=== PATIENT | female | born 1990 | race Caucasian/White ===

== ENCOUNTER 2019-02-22 17:26 | Emergency (ER) | payer OTHER ==
[~2019-02-22] VITALS: Ht 154.9 cm; Wt 110.9 kg
[2019-02-22] MEDS ORDERED: GI COCKTAIL 50ML BTL(HYOSCYAMINE/MAALOX/LIDOCAINE VISCOUS)(1:3:1) PO ONE (18:00)
[2019-02-22 18:16] LABS: BASO # 0.1 10^3/uL (0.0-0.2); BASO % 0.6 % (0.0-1.0); EOS # 0.1 10^3/uL (0.0-0.5); EOS % 0.5 % (0.0-3.0); HEMATOCRIT 40.1 % (36.0-47.0); HEMOGLOBIN 13.3 g/dl (12.0-15.5); LYMPH # 2.9 10^3/uL (1.5-5.0); LYMPH % 30.4 % (24.0-44.0); MEAN CORPUSCULAR HEMOGLOBIN 28.1 pg (27.0-33.0); MEAN CORPUSCULAR HGB CONC 33.2 g/dl (32.0-36.5); MEAN CORPUSCULAR VOLUME 84.6 fl (80.0-96.0); MONO # 0.6 10^3/uL (0.0-0.8); MONO % 6.8 % (0.0-5.0); NEUTROPHILS # 5.8 10^3/uL (1.5-8.5); NEUTROPHILS % 61.3 % (36.0-66.0); PLATELET COUNT, AUTOMATED 319 10^3/uL (150-450); RED BLOOD COUNT 4.74 10^6/uL (4.00-5.40); WHITE BLOOD COUNT 9.4 10^3/uL (4.0-10.0)
[2019-02-22 18:58] LABS: ALBUMIN 3.5 GM/DL (3.2-5.2); ALT/SGPT 22 U/L (12-78); BILIRUBIN,DIRECT < 0.1 MG/DL (0.0-0.2); BILIRUBIN,TOTAL 0.2 MG/DL (0.2-1.0); BLOOD UREA NITROGEN 8 MG/DL (7-18); CALCIUM LEVEL 8.6 MG/DL (8.5-10.1); CARBON DIOXIDE LEVEL 24 MEQ/L (21-32); CHLORIDE LEVEL 108 MEQ/L (98-107); CK-MB VALUE MASS < 1.0 NG/ML (<3.6); CPK CREATINE PHOSPHOKINASE 109 U/L (26-192); CREATININE FOR GFR 0.82 MG/DL (0.55-1.30); FREE T4 1.01 NG/DL (0.76-1.46); GLOMERULAR FILTRATION RATE > 60.0 (>60); GLUCOSE, FASTING 97 MG/DL (70-100); MB/CK RELATIVE INDEX 0.92 (< OR =4); NT-PRO BNP 15 PG/ML (<125); POTASSIUM SERUM 4.3 MEQ/L (3.5-5.1); SODIUM LEVEL 141 MEQ/L (136-145); TOTAL PROTEIN 7.1 GM/DL (6.4-8.2); TROPONIN I < 0.02 NG/ML (< 0.10)
[2019-02-22 19:10] LABS: HCG, SERUM QUALITATIVE NEGATIVE (NEGATIVE)
--- NOTE | 2019-02-22 20:08 | REP ---
Chest x-ray: Two views. History: Chest pain. Findings: EKG monitoring electrodes overlie the chest. Lungs are well inflated and clear. Pleural angles are sharp. Heart size is normal. No significant bony abnormality. Impression: No active disease. Electronically Signed by Uriel Ricardo MD 02/22/2019 07:59 P
[2019-02-22 20:30] VITALS: BP 136/68
--- NOTE | 2019-02-22 21:23 | ECGEPIP ---
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
== END 2019-02-22 21:34 | disposition home or self-care (01) ==
LOC: M ED 17:26 → EDBD 17:26 → M ED 21:34
DX: R07.89 Other chest pain (principal); R06.02 Shortness of breath; R11.0 Nausea; R05 Cough; E83.10 Disorder of iron metabolism, unspecified; Z88.0 Allergy status to penicillin

== ENCOUNTER → 2020-04-06 | Outpatient (CLI) | payer OTHER ==
[2020-04-06 19:58] LABS: BASO # 0.1 10^3/uL (0.0-0.2); BASO % 0.8 % (0.0-1.0); EOS # 0.1 10^3/uL (0.0-0.5); EOS % 0.8 % (0.0-3.0); HEMATOCRIT 38.8 % (36.0-47.0); HEMOGLOBIN 12.5 g/dl (12.0-15.5); LYMPH # 2.9 10^3/uL (1.5-5.0); LYMPH % 30.5 % (24.0-44.0); MEAN CORPUSCULAR HEMOGLOBIN 26.9 pg (27.0-33.0); MEAN CORPUSCULAR HGB CONC 32.2 g/dl (32.0-36.5); MEAN CORPUSCULAR VOLUME 83.4 fl (80.0-96.0); MONO # 0.8 10^3/uL (0.0-0.8); MONO % 8.6 % (2.0-8.0); NEUTROPHILS # 5.5 10^3/uL (1.5-8.5); NEUTROPHILS % 58.9 % (36.0-66.0); PLATELET COUNT, AUTOMATED 371 10^3/uL (150-450); RED BLOOD COUNT 4.65 10^6/uL (4.00-5.40); WHITE BLOOD COUNT 9.4 10^3/uL (4.0-10.0)
[2020-04-06 20:11] LABS: ALBUMIN 3.7 GM/DL (3.2-5.2); ALT/SGPT 41 U/L (12-78); BILIRUBIN,TOTAL 0.2 MG/DL (0.2-1.0); BLOOD UREA NITROGEN 7 MG/DL (7-18); CALCIUM LEVEL 8.8 MG/DL (8.5-10.1); CARBON DIOXIDE LEVEL 27 MEQ/L (21-32); CHLORIDE LEVEL 107 MEQ/L (98-107); CHOLESTEROL LEVEL 246 MG/DL (<200); CREATININE FOR GFR 0.88 MG/DL (0.55-1.30); FREE T4 0.98 NG/DL (0.76-1.46); GLOMERULAR FILTRATION RATE > 60.0 (>60); GLUCOSE, FASTING 90 MG/DL (70-100); HDL CHOLESTEROL 41 MG/DL (>40); LDL CHOLESTEROL 156 MG/DL (<100); NON-HDL-C 205 MG/DL; POTASSIUM SERUM 4.5 MEQ/L (3.5-5.1); SODIUM LEVEL 141 MEQ/L (136-145); TOTAL PROTEIN 7.2 GM/DL (6.4-8.2); TRIGLYCERIDES LEVEL 244 MG/DL (<150)
[2020-04-06 20:32] LABS: HEMOGLOBIN A1c 5.4 %
== END ==
LOC: M WUC 15:45
PROVIDERS: ATTEND Nurse Practitioner Family
DX: R35.8 Other polyuria (principal); E66.01 Morbid (severe) obesity due to excess calories

== ENCOUNTER → 2020-04-21 | Outpatient (CLI) | payer OTHER ==
[2020-04-21 16:55] LABS: HCG, SERUM QUALITATIVE NEGATIVE (NEGATIVE)
== END ==
LOC: M WUC 13:52
PROVIDERS: ATTEND Nurse Practitioner Family
DX: R35.8 Other polyuria (principal)

== ENCOUNTER 2020-08-27 19:14 | Day surgery (SDC) | payer OTHER ==
[~2020-08-27] VITALS: Ht 154.9 cm; Wt 134.0 kg
[2020-08-27] MEDS ORDERED: [UNRECOGNIZED DRUG - CODE] PO (19:20)
[2020-08-27 21:13] LABS: BASO # 0.1 10^3/uL (0.0-0.2); BASO % 0.5 % (0.0-1.0); EOS # 0.1 10^3/uL (0.0-0.5); EOS % 0.6 % (0.0-3.0); HEMATOCRIT 37.9 % (36.0-47.0); HEMOGLOBIN 12.5 g/dl (12.0-15.5); LYMPH # 2.2 10^3/uL (1.5-5.0); LYMPH % 17.8 % (24.0-44.0); MEAN CORPUSCULAR HEMOGLOBIN 26.6 pg (27.0-33.0); MEAN CORPUSCULAR VOLUME 80.6 fl (80.0-96.0); MONO # 0.9 10^3/uL (0.0-0.8); MONO % 7.5 % (2.0-8.0); NEUTROPHILS % 73.1 % (36.0-66.0); PLATELET COUNT, AUTOMATED 432 10^3/uL (150-450); WHITE BLOOD COUNT 12.3 10^3/uL (4.0-10.0)
[2020-08-27 21:34] LABS: ALBUMIN 3.4 GM/DL (3.2-5.2); ALT/SGPT 55 U/L (12-78); BILIRUBIN,DIRECT 0.2 MG/DL (0.0-0.2); BILIRUBIN,TOTAL 0.5 MG/DL (0.2-1.0); BLOOD UREA NITROGEN 6 MG/DL (7-18); CALCIUM LEVEL 8.6 MG/DL (8.5-10.1); CARBON DIOXIDE LEVEL 26 MEQ/L (21-32); CHLORIDE LEVEL 102 MEQ/L (98-107); CREATININE FOR GFR 0.91 MG/DL (0.55-1.30); GLOMERULAR FILTRATION RATE > 60.0 (>60); GLUCOSE, FASTING 101 MG/DL (70-100); LIPASE 110 U/L (73-393); POTASSIUM SERUM 4.2 MEQ/L (3.5-5.1); SODIUM LEVEL 138 MEQ/L (136-145); TOTAL PROTEIN 7.7 GM/DL (6.4-8.2)
[2020-08-27] MEDS ORDERED: KETOROLAC 30 MG/ML 1ML VIAL IV ONE (22:50)
[2020-08-27] MEDS ORDERED: ONDANSETRON 4MG/2ML VIAL IV ONE (22:50)
[2020-08-27] MEDS ORDERED: NS 1,000 ML IV ONE (22:50)
[2020-08-27] MEDS ORDERED: DICYCLOMINE 10 MG CAP PO ONE (22:50)
[2020-08-27] MEDS ORDERED: ISOVUE-370 76% 100ML VIAL As Ordered ONE (23:09)
[2020-08-27] MEDS ORDERED: GI COCKTAIL 50ML BTL(HYOSCYAMINE/MAALOX/LIDOCAINE VISCOUS)(1:3:1) PO ONE (23:10)
[2020-08-28] VITALS (8 sets, daily range): BP systolic 120–134; BP diastolic 77–87
--- NOTE | 2020-08-28 01:10 | REPVR ---
PROCEDURE INFORMATION: Exam: CT Abdomen And Pelvis With Contrast Exam date and time: 08/27/2020 12:02 AM Age: 30 years old Clinical indication: Abdominal pain; Generalized; Additional info: Diffuse severe abd pain, nv TECHNIQUE: Imaging protocol: Computed tomography of the abdomen and pelvis with contrast. Radiation optimization: All CT scans at this facility use at least one of these dose optimization techniques: automated exposure control; mA and/or kV adjustment per patient size (includes targeted exams where dose is matched to clinical indication); or iterative reconstruction. Contrast material: ISOVUE 370; Contrast volume: 100 ml; Contrast route: INTRAVENOUS (IV); COMPARISON: CO Chest, 2 view PA, Lat 02/22/2019 7:36 PM FINDINGS: Lungs: Focal atelectasis is seen in the posterior right lower lobe. Pneumonitis cannot be excluded. Pleural spaces: No pleural effusion. Liver: There is a diffuse decrease in hepatic parenchymal density, consistent with fatty infiltration. There are no focal liver lesions present. Gallbladder and bile ducts: Cholelithiasis is noted. No gallbladder wall thickening, pericholecystic edema, or biliary obstruction is evident. Pancreas: The pancreas is normal. Spleen: The spleen is enlarged, measuring 16.2 cm in greatest dimension. Adrenal glands: The adrenal glands are normal. Kidneys and ureters: The kidneys are normal. Stomach and bowel: The stomach is normal. No bowel obstruction is seen. Appendix: There are findings of acute appendicitis with evidence of rupture and phlegmon formation in the right lower quadrant. A linear appendicoliths is seen in the distal appendix. The inflammatory process in the right lower quadrant is abutting the superolateral aspect of the right adnexa. There are inflammatory changes of the adjacent small bowel loops and ascending colon. Intraperitoneal space: No definite free air is seen. Vasculature: The vasculature is normal. Lymph nodes: No lymphadenopathy. Reactive mesenteric lymph nodes are seen in the right lower quadrant. Urinary bladder: The bladder is normal. Reproductive: The uterus is normal. Bones/joints: Unremarkable. No acute fracture. IMPRESSION: 1. Acute appendicitis, with evidence of appendiceal rupture and right lower quadrant phlegmon. No formed, and drainable abscess is detected. 2. Reactive inflammatory changes of the adjacent small bowel and ascending colon. 3. Hepatic steatosis. 4. Splenomegaly. 5. Cholelithiasis. Electronically signed by: Carina Abad On 08/28/2020 01:09:35 AM
[2020-08-28] MEDS ORDERED: NS 1,000 ML IV ONE (01:20)
[2020-08-28] MEDS ORDERED: IMIPENEM/CILASTATIN 1,000 MG in D5W MINI-BAG PLUS 100 ML IV ONE (01:25)
[2020-08-28] MEDS: LR 1,000 ML IV SCH ×2 (02:10→10:35)
[2020-08-28] MEDS ORDERED: ONDANSETRON 4MG/2ML VIAL IV PRN ×2 (02:10→05:45)
[2020-08-28 02:17] LABS: RSV AMPLIFICATION NEGATIVE (NEGATIVE)
[2020-08-28] MEDS ORDERED: BUPIVACAINE HCL 0.25% 30ML VIAL As Ordered ONE (02:59)
[2020-08-28] MEDS ORDERED: fentaNYL 100 MCG/2 ML INJECTION (J3010) As Ordered ONE ×2 (03:00→03:41)
[2020-08-28] MEDS ORDERED: dexameTHASONE 4 MG/ML 1ML VIAL (J1100 PER 1MG) As Ordered ONE ×2 (03:00→03:01)
[2020-08-28] MEDS ORDERED: MIDAZOLAM INJ 2MG/2ML VIAL (J2250 PER 1MG) As Ordered ONE (03:00)
[2020-08-28] MEDS ORDERED: ONDANSETRON 4MG/2ML VIAL As Ordered ONE (03:00)
[2020-08-28] MEDS ORDERED: propofoL 200 MG/20 ML VIAL As Ordered ONE ×2 (03:01→03:57)
[2020-08-28] MEDS ORDERED: LIDOCAINE 2% 100MG/5ML SDV (FOR ANES.) As Ordered ONE (03:01)
[2020-08-28] MEDS ORDERED: ROCURONIUM BROMIDE 50 MG/5 ML VIAL As Ordered ONE ×2 (03:02→04:14)
[2020-08-28] MEDS ORDERED: SUCCINYLCHOLINE 100 MG/5 ML SYRINGE (J0330) As Ordered ONE (03:34)
[2020-08-28] MEDS ORDERED: ESMOLOL INJ 100MG/10ML VIAL As Ordered ONE (03:49)
[2020-08-28] MEDS ORDERED: METOCLOPRAMIDE INJ 10MG/2ML VIAL (J2765 PER 1) As Ordered ONE ×2 (03:54→06:16)
[2020-08-28] MEDS ORDERED: SUGAMMADEX SODIUM 500 MG/5 ML VIAL (BRIDION) As Ordered ONE (03:58)
[2020-08-28] MEDS ORDERED: METOCLOPRAMIDE INJ 10MG/2ML VIAL (J2765 PER 1) IV PRN (05:30)
[2020-08-28] MEDS ORDERED: HYDROMORPHONE HCL 0.5 MG/ 0.5 ML SYRINGE (J1170 PER 1) IV PRN (05:45)
[2020-08-28] MEDS ORDERED: fentaNYL 100 MCG/2 ML INJECTION (J3010) IV PRN (05:45)
[2020-08-28] MEDS ORDERED: LR 1,000 ML IV SCH (05:45)
[2020-08-28] MEDS ORDERED: oxyCODONE 5MG TAB PO PRN (05:45)
[2020-08-28] MEDS ORDERED: KETOROLAC 30 MG/ML 1ML VIAL IV PRN (05:55)
[2020-08-28] MEDS ORDERED: MORPHINE 2 MG/ML 1ML VIAL (J2270) IV PRN (05:55)
[2020-08-28] MEDS ORDERED: NORCO, ANEXSIA 5/325MG TABLET (HYDROcodone/ACETAMINOPHEN) PO PRN (05:55)
[2020-08-28] MEDS: IMIPENEM/CILASTATIN 500 MG in D5W MINI-BAG PLUS 100 ML IV SCH ×2 (09:03→14:58)
--- NOTE | 2020-08-28 13:41 | RO ---
OPERATIVE NOTE DATE OF OPERATION: 08/28/2020 PREOPERATIVE DIAGNOSIS: Acute appendicitis. POSTOPERATIVE DIAGNOSIS: Acute appendicitis with abscess. PROCEDURE PERFORMED: Laparoscopic appendectomy with drainage of abscess. SURGEON: Danielito Terry MD ANESTHESIA: General INDICATIONS FOR THE PROCEDURE: The patient is a 30-year-old woman whose only medical issue is morbid obesity. She reports approximately a week of some lower abdominal pain which worsened the day before presentation with development of some nausea and vomiting. A CT scan in the emergency department showed inflammatory changes in the right lower quadrant consistent with appendicitis. She is now for a laparoscopic appendectomy. OPERATIVE PROCEDURE: The patient was brought to the operating room and placed on the table in a supine position. She was placed under general endotracheal anesthesia. The patient's abdomen was prepped and draped in a sterile fashion. 1/4% Marcaine was infiltrated at each of the trocar sites as needed. A short supraumbilical midline incision was made. A Veress needle was inserted and after a positive hanging drop test, the abdomen was inflated with carbon dioxide gas. After adequate insufflation, a 12 mm was placed over a 5 mm scope and advanced through the abdominal wall without difficulty. The laparoscope was inserted and initial examination showed a small amount of insufflation of gas into the greater omentum. There was a prominent greater omentum basically covering all of the bowel and none of the other internal organs could be seen. She was tilted to a slight Trendelenburg position. Two 5 mm ports were placed in the left lower quadrant. The standard ports were long enough to advance it through the abdominal wall with perhaps 2 cm of clearance internally. Graspers were inserted. I was able to move the inferior portion of the greater omentum superiorly using the graspers. The patient was also rolled slightly to the left and then tilted more sharply into a Trendelenburg position. There was a minimal amount of serous fluid noted in the right lower quadrant. The cecum was identified. There was clearly an area of induration inferior to the cecum and abutting the terminal ileum. Dissection primarily blunt using the graspers was used to try to find a tissue plane to access the appendix. A fatty tag presumably from the sigmoid colon was identified adherent to some inflamed tissues apparently representing the tip of the appendix and this fatty tag was transected with the cauterizing scissors. Using the blunt technique again, it was possible to open a plane between the terminal ileum and the medial portion of the inflamed appendix. There was marked induration of the appendix with thickening which made grasping the appendix very difficult. The lateral aspect was more easily freed from the retroperitoneum by blunt dissection. As I attempted to work through the plane between the terminal ileum and the appendix, a small abscess apparently walled of in the mesoappendix adjacent to the terminal ileal mesentery and opened and drained. The area was irrigated and dissection proceeded. A harmonic scalpel was used to cut through some of the inflammatory tissue tethering the appendix to the retroperitoneum. The mesoappendix was partially identified and transected using the harmonic scalpel with excellent hemostasis. With continued dissection, it was possible to free the appendix down to the base. There was some induration around the base of the appendix but this appeared to be secondary rather than primary. I was able to put a 0 Vicryl Endoloop around the base of the appendix and the base of the appendix was then cut and the appendix was placed in an Endopouch. The mucosa of the appendiceal stump was cauterized. The right lower quadrant was copiously irrigated. Final inspection revealed no evidence of injury of the terminal ileum or the cecum. I elected not to place a drain given that all of wall of the small abscess had apparently been removed with the appendix. The patient was returned to a flat position. The abdomen was deflated and trocars were removed. An approximately 3 to 3-1/2 cm midline incision was centered on the 12 mm port site above the umbilicus. This was deepened through the subcutaneous tissues and the fascia was exposed and opened to allow the delivery of the appendix within the Endopouch. The fascial defect was then closed with a running suture of 2-0 PDS. This achieved a nice closure of the fascia. The wounds were the closed with buried sutures of 4-0 Vicryl and Steri-Strips. The remainder of the 30 mL of 1/4% Marcaine was infiltrated around all of the trocar sites. The patient tolerated the procedure well without apparent complication. She was awakened in the operating room, extubated, moved to the recovery room in stable condition. SHAR
[2020-08-28 14:19] LABS: BASO % 0.2 % (0.0-1.0); HEMATOCRIT 33.2 % (36.0-47.0); HEMOGLOBIN 10.6 g/dl (12.0-15.5); LYMPH % 8.3 % (24.0-44.0); MEAN CORPUSCULAR HEMOGLOBIN 25.7 pg (27.0-33.0); MEAN CORPUSCULAR HGB CONC 31.9 g/dl (32.0-36.5); MEAN CORPUSCULAR VOLUME 80.6 fl (80.0-96.0); MONO # 0.4 10^3/uL (0.0-0.8); MONO % 3.6 % (2.0-8.0); NEUTROPHILS # 10.3 10^3/uL (1.5-8.5); NEUTROPHILS % 87.4 % (36.0-66.0); PLATELET COUNT, AUTOMATED 381 10^3/uL (150-450); RED BLOOD COUNT 4.12 10^6/uL (4.00-5.40); WHITE BLOOD COUNT 11.8 10^3/uL (4.0-10.0)
[2020-08-28] MEDS ORDERED: METR-265 PO (18:10)
[2020-08-28] MEDS ORDERED: LEVO750T13 PO (18:10)
[2020-08-28] MEDS ORDERED: LevoFLOXacin 750 MG TABLET PO ONE (19:00)
--- NOTE | 2020-08-28 20:50 | IPN ---
PROGRESS NOTE DATE: 08/28/2020 HISTORY: Patient is approximately 12 hours postop from a laparoscopic appendectomy for acute appendicitis with a small abscess in the mesoappendix walled off by the terminal ileum. She tolerated her surgery well. She has taken some liquids well and was advanced to a regular diet. She denies any nausea or vomiting and has little pain and does not wish any narcotic medications. OBJECTIVE: VITAL SIGNS: Show that she has been afebrile since her surgery early this morning. Her pulse is in the low to mid 80's and her blood pressure is good. Room air oxygen saturation is in the mid to upper 90's. INTAKE/OUTPUT: She has had over 1,200 cc in orally with an excellent urine output. PHYSICAL EXAMINATION: GENERAL: Patient is sitting up in bed looking quite comfortable. HEART: Shows a regular rhythm. LUNGS: Clear. ABDOMEN: Remains markedly obese. She does have bowel sounds present throughout the abdomen. Her dressings are clean and dry. Abdomen is soft without any undo tenderness. LABORATORY STUDIES: She had a repeat CBC approximately 8 hours postop, which showed white count 12, hemoglobin 11, hematocrit 33 and platelet count 381,000. Differential count showed 87% neutrophils and 8% lymphocytes with 4% monocytes. ALLERGIES: She has an allergy to penicillins and Amoxicillin. IMPRESSION: Patient is doing very well following her surgery. Because of her small abscess, I had continued her Primaxin postop. She has an allergy to penicillins and Amoxicillin. She is eating diet well and denies significant pain and is eager to go home as she has two children at home. PLAN: I discussed ongoing care with the patient. Because of her small abscess, I do think a short course of postop antibiotics is appropriate. Unfortunately, the pharmacies are all closed for today. I will have the nurse give her a single dose of Levofloxacin 750 mg p.o. now. I will give her a prescription for five days worth of Levaquin and five days of Metronidazole, and she can have these filled first thing in the morning and start them tomorrow. I talked to her about postop wound care and she can shower tomorrow. She can take a diet as tolerated. She was advised against any strenuous physical activity, but was encouraged to walk and do light activities. She should follow-up in the office in a week to ten days or call sooner for any problems. SHAR
== END 2020-08-28 19:30 | disposition home or self-care (01) ==
LOC: M ED 19:14 → M ED INP 19:15 → UNDOADMOB 19:15 → M SDC 19:15 → M MSPAV 08-28 06:34 → M ED INP 08-28 06:34 → M MSPAV 08-28 06:34 → UNDODISOB 08-28 19:30 → M SDC 08-28 19:30
PROVIDERS: ATTEND Surgery
DX: K35.33 Acute appendicitis with perforation, localized peritonitis, and gangrene, with abscess (principal); E66.01 Morbid (severe) obesity due to excess calories; Z68.43 Body mass index [BMI] 50.0-59.9, adult; Z88.0 Allergy status to penicillin; Z88.1 Allergy status to other antibiotic agents
CPT/HCPCS: 36415; 44970; 74177; 80048; 80076; 83690; 84702; 85025; 87631; 88304; 96361; 96374; 96375; 96376; 99284; J0330; J0743; J1100; J1885; J2250; J2405; J2765; J3010; Q9967

== ENCOUNTER 2020-12-07 13:31 | Inpatient (IN) | payer OTHER ==
[~2020-12-07] VITALS: Ht 154.9 cm; Wt 119.3 kg
[~2020-12-07 13:31] MED LIST: LEVO750T13 PO; METR-265 PO; [UNRECOGNIZED DRUG - CODE] PO
[2020-12-07] MEDS ORDERED: NS 1,000 ML IV ONE (16:15)
--- OUTSIDE RECORDS SUMMARY | 2020-12-07 16:20 | CCD | Continuity of Care Document ---
Author Author Virgie BEACH M.D. Organization Unknown Address [address], [address] [place] [address] Phone [phone] Care Team Providers Care Tooth Clerk Name Role Phone Taylor Cantu P.A.-C AUTM [phone] Problems Description No Information Available Social History Type Date Description Comments Sex Unknown ETOH Use Denies alcohol use Tobacco Use Start: Unknown Denies Smoking Recreational Drug Use Denies Drug Use Allergies, Adverse Reactions, Alerts Active Allergies Reaction Severity Comments Date Penicillin V 08/30/2020 Amoxicillin 08/30/2020 Medications Description No Active Medications Immunizations Description No Information Available Vital Signs Date Vital Result Comment 09/07/2020 9:34am BP Systolic 126 mmHg BP Diastolic 72 mmHg Height 61 inches 5'1" Weight 297.00 lb BMI (Body Mass Index) 56.1 kg/m2 Paicines Body Weight 105 lb Weight 134.719 kg BSA (Body Surface Area) 2.23 m2 Results Description No Information Available Procedures Description No Information Available Medical Devices Description No Information Available Encounters Type Date Location Provider Dx Diagnosis Office Visit 09/07/2020 9:30a [facility] Danielito heart M.D. K35.33 Acute appendicitis with perf and loc per itonitis, with abscs E66.01 Morbid (severe) obesity due to excess calories Z48.89 Encounter for other specifie d surgical aftercare Assessments Date Code Description Provider 09/07/2020 K35.33 Acute appendicitis w ith perforation and localized peritonitis, with abscess Danielito Beach M.D. 09/07/2020 E66.01 Morbid (severe) obesity due to e xcess calories Danielito Beach M.D. 09/07/2020 Z48.89 Encounter for other specified barnes rgical aftercare Danielito Beach M.D. Plan of Treatment 09/07/2020 - Danielito Beach M.D.* K35.33 Acute appendicitis with perforation and localized peritonitis, with abscess* Comments:* Patient was counseled that she appears to be doing very well following her appendectomy. She clearly has no evidence of any recurrence of her abscess. I have advised her that as it was necessary to enlarge her supraumbilical incision somewhat to remove her distended appendix that she should probably avoid strenuous activity through approximately the first month. Light activities are certainly fine. She does not need to follow-up with me again in the future unless some new problem occurs. * E66.01 Morbid (severe) obesity due to excess calories * Z48.89 Encounter for other specified surgical aftercare Functional Status Description No Information Available Mental Status Description No Information Available Referrals Description No Information Available
--- OUTSIDE RECORDS SUMMARY | 2020-12-07 16:21 | CCD ---
Author Author [facility] Organization [facility] Address Unknown Phone Unavailable Care Team Providers Care Core Winder Name Role Phone Rakan BEACH MD Unavailable Unavailable Rakan BEACH MD Unavailable Unavailable Rakan BEACH MD Unavailable Unavailable Rakan BEACH MD Unavailable Unavailable YONGRakan BRIGGS MD Unavailable Unavailable Rakan BEACH MD Unavailable Unavailable Rakan BEACH MD Unavailable Unavailable Rakan BEACH MD Unavailable Unavailable Rakan BEACH MD Unavailable Unavailable YONGRakan BRIGGS MD Unavailable Unavailable YONGRakan BRIGGS MD Unavailable Unavailable YONGRakan BRIGGS MD Unavailable Unavailable YONGRakan BRIGGS MD Unavailable Unavailable YONGRakan BRIGGS MD Unavailable Unavailable Rakan BEACH MD Unavailable Unavailable Rakan BEACH MD Unavailable Unavailable Rakan BEACH MD Unavailable Unavailable YONGRakan BRIGGS MD Unavailable Unavailable YONGRakan BRIGGS MD Unavailable Unavailable YONGRakan BRIGGS MD Unavailable Unavailable YONGRakan BRIGGS MD Unavailable Unavailable Rakan BEACH MD Unavailable Unavailable Rakan BEACH MD Unavailable Unavailable Rakan BEACH MD Unavailable Unavailable YONGRakan BRIGGS MD Unavailable Unavailable YONGRakan BRIGGS MD Unavailable Unavailable YONGRakan BRIGGS MD Unavailable Unavailable Rakan BEACH MD Unavailable Unavailable Rakan BEACH MD Unavailable Unavailable Rakan BEACH MD Unavailable Unavailable Rakan BEACH MD Unavailable Unavailable Rakan BEACH MD Unavailable Unavailable Rakan BEACH MD Unavailable Unavailable YONGRakan BRIGGS MD Unavailable Unavailable YONGRakan BRIGGS MD Unavailable Unavailable YONGRakan BRIGGS MD Unavailable Unavailable YONGRakan BRIGGS MD Unavailable Unavailable YONGRakan BRIGGS MD Unavailable Unavailable YONGRakan BRIGGS MD Unavailable Unavailable YONGRakan BRIGGS MD Unavailable Unavailable YONGRakan BRIGGS MD Unavailable Unavailable YONGRakan BRIGGS MD Unavailable Unavailable YONG, O PRICE MD Unavailable Unavailable Pleskach, Carla DELIVERY PROFESSIONAL Unavailable Unavailable Pleskach, Carla DELIVERY PROFESSIONAL Unavailable Unavailable Pleskach, Carla DELIVERY PROFESSIONAL Unavailable Unavailable Pleskach, Carla DELIVERY PROFESSIONAL Unavailable Unavailable Pleskach, Carla DELIVERY PROFESSIONAL Unavailable Unavailable Pleskach, Carla DELIVERY PROFESSIONAL Unavailable Unavailable Pleskach, Carla DELIVERY PROFESSIONAL Unavailable Unavailable Pleskach, Carla DELIVERY PROFESSIONAL Unavailable Unavailable Pleskach, Carla DELIVERY PROFESSIONAL Unavailable Unavailable Pleskach, Carla DELIVERY PROFESSIONAL Unavailable Unavailable Pleskach, Carla DELIVERY PROFESSIONAL Unavailable Unavailable Pleskach, Carla DELIVERY PROFESSIONAL Unavailable Unavailable Pleskach, Carla DELIVERY PROFESSIONAL Unavailable Unavailable Pleskach, Carla DELIVERY PROFESSIONAL Unavailable Unavailable Pleskach, Carla DELIVERY PROFESSIONAL Unavailable Unavailable Pleskach, Carla DELIVERY PROFESSIONAL Unavailable Unavailable Pleskach, Calra DELIVERY PROFESSIONAL Unavailable Unavailable Pleskach, Carla DELIVERY PROFESSIONAL Unavailable Unavailable Pleskach, Carla DELIVERY PROFESSIONAL Unavailable Unavailable Pleskach, Carla DELIVERY PROFESSIONAL Unavailable Unavailable Pleskach, Carla DELIVERY PROFESSIONAL Unavailable Unavailable Pleskach, Carla DELIVERY PROFESSIONAL Unavailable Unavailable Pleskach, Carla DELIVERY PROFESSIONAL Unavailable Unavailable Pleskach, Carla DELIVERY PROFESSIONAL Unavailable Unavailable Pleskach, Carla DELIVERY PROFESSIONAL Unavailable Unavailable Pleskach, Carla DELIVERY PROFESSIONAL Unavailable Unavailable Pleskach, Carla DELIVERY PROFESSIONAL Unavailable Unavailable Pleskach, Carla DELIVERY PROFESSIONAL Unavailable Unavailable Pleskach, Carla DELIVERY PROFESSIONAL Unavailable Unavailable Pleskach, Carla DELIVERY PROFESSIONAL Unavailable Unavailable Pleskach, Carla DELIVERY PROFESSIONAL Unavailable Unavailable Pleskach, Carla DELIVERY PROFESSIONAL Unavailable Unavailable Pleskach, Carla DELIVERY PROFESSIONAL Unavailable Unavailable Pleskach, Carla DELIVERY PROFESSIONAL Unavailable Unavailable Pleskach, Carla DELIVERY PROFESSIONAL Unavailable Unavailable Pleskach, Carla DELIVERY PROFESSIONAL Unavailable Unavailable Pleskach, Carla DELIVERY PROFESSIONAL Unavailable Unavailable Pleskach, Carla DELIVERY PROFESSIONAL Unavailable Unavailable Pleskach, Carla DELIVERY PROFESSIONAL Unavailable Unavailable Pleskach, Carla DELIVERY PROFESSIONAL Unavailable Unavailable Pleskach, Carla DELIVERY PROFESSIONAL Unavailable Unavailable Pleskach, Carla DELIVERY PROFESSIONAL Unavailable Unavailable Re-disclosure Warning The records that you are about to access may contain information from federally-assisted alcohol or drug abuse programs. If such information is present, then the following federally mandated warning applies: This information has been disclosed to you from records protected by federal confidentiality rules (42 CFR part 2). The federal rules prohibit you from making any further disclosure of this information unless further disclosure is expressly permitted by the written consent of the person to whom it pertains or as otherwise permitted by 42 CFR part 2. A general authorization for the release of medical or other information is NOT sufficient for this purpose. The Federal rules restrict any use of the information to criminally investigate or prosecute any alcohol or drug abuse patient.The records that you are about to access may contain highly sensitive health information, the redisclosure of which is protected by Article 27-F of the [facility] [place] Public Health law. If you continue you may have access to information: Regarding HIV / AIDS; Provided by facilities licensed or operated by the [facility] [place] Office of Mental Health; or Provided by the [facility] [place] Office for People With Developmental Disabilities. If such information is present, then the following [facility] [place] mandated warning applies: This information has been disclosed to you from confidential records which are protected by state law. State law prohibits you from making any further disclosure of this information without the specific written consent of the person to whom it pertains, or as otherwise permitted by law. Any unauthorized further disclosure in violation of state law may result in a fine or chcf sentence or both. A general authorization for the release of medical or other information is NOT sufficient authorization for further disc losure. Encounters Encounter Providers Location Date Indications Data Source(s ) Office Visit Attender: PRICE Tee/Malik/Basilio/Es indl 09/07/2020 09:30:00 AM EDT [facility] ([facility] ) Outpatient Attender: Carla Ray [facility] Main Office 05/02/2020 0 8:15:00 AM EDT [facility] ([facility] Outpatient Attender: Carla Ray [facility] Main Office 04/21/2020 1 2:00:00 PM EST [facility] ([facility] Outpatient Attender: Carla Ray [facility] Main Office 04/06/2020 0 2:00:00 PM EST [facility] ([facility] Medications No Information Insurance Providers Payer name Policy type / Coverage type Policy ID Covered constitution party ID Covered constitution party's relationship to banuelos Policy Banuelos Plan Information [facility] [id number] SP [id number] [facility] O [id number] S [id number] [facility] O UNAVAILABLE [id number] P UNAV AILABLE [employer] [facility] O [id number] P [id number] [facility] [employer]MA[employer] - O/P [id number] 01 [id number] [facility] [id number] 2 [id number] Problems, Conditions, and Diagnoses No Information Surgeries/Procedures Procedure Description Date Indications Data Source(s) Brief Emotional/Behav Assessment W/ Scoring Doc Per Standard Inst 04/06/2020 12:00:00 AM EST [facility] ([facility] Results ID Date Data Source [id number] 11/15/2020 11:00:00 AM EDT [facility] Name Value Range Interpretation Code Description Data Denise rce(s) Supporting Document(s) SARS coronavirus 2 RNA Not Detected [facility] This lab was ordered by [facility] [id number] and reported by [facility]. ID Date Data Source [id number] 08/28/2020 01:23:00 AM EDT [facility] Name Value Range Interpretation Code Description Data Denise rce(s) Supporting Document(s) SARS coronavirus 2 RNA [Presence] in Res piratory specimen by MALATHI with probe detection NEGATIVE [facility] This lab was ordered by [facility] a nd reported by [facility]. ID Date Data Source [id number] 04/22/2020 12:00:00 AM EST [facility] Noel Giordano Patient Name: TEODORA [id number] Date of : 1990[facility] [place] [address] Date of Exam: [facility]#: Fax: [phone] EXAM: US PELVIC COMPLETECLINICAL INFORMATION: Amenorrhea. Nearly three weeks delayed menses withnegative test.Transabdominal and endovaginal probes were utilized.The bladder adequately filled at 8.8 x 5.3 x 7.5 cm. This gives a bladdervolume of 183 cc. Uterus is best seen on the endovaginal probe but isanteverted on both transabdominal and endovaginal imaging. It measures 8 x4.1 x 3.5 cm. The central endometrial echogenic stripe has a thickness of7.6 mm. No fluid in the endometrial cavity. There is a nabothian cyst inthe cervix. It is about 7 x 4 mm. No uterine mass or contour abnormalityidentified. Both adnexa were scanned extensively with transabdominal andendovaginal probes and neither were able to identify any adnexalstructures. Abundant gas shadowing. No pelvic free fluid.IMPRESSION:1. Anteverted uterus not enlarged and with a normal appearance to theendometrial stripe. Thickness 8 mm without fluid in the endometrial cavityor endocervical canal. No free fluid in the cul-de-sac.2. Small nabothian cyst 7 x 4 mm in the cervix.3. Transabdominal and endovaginal probes do not show any identifiableadnexal tissue with extensive gas shadowing in the adnexal regions. Nogross mass or fluid.Accredited by the [employer] in GynecologicalUltrasound.ELIAN Posada/Ricco you for referring TRISTAN SALMERON to our office. Electronically Signed - TD COOPER MD 04/22/20 13:06 Name Value Range Interpretation Code Description Data Denise rce(s) Supporting Document(s) ID Date Data Source [id number] 04/22/2020 12:00:00 AM [facility] Noel Giordano Patient Name: CRISTO [id number] Date of : 1990[place] [address] Date of Exam: 1P#: Fax: [phone] EXAM: US PELVIC COMPLETECLINICAL INFORMATION: Amenorrhea. Nearly three weeks delayed menses withnegative test.Transabdominal and endovaginal probes were utilized.The bladder adequately filled at 8.8 x 5.3 x 7.5 cm. This gives a bladdervolume of 183 cc. Uterus is best seen on the endovaginal probe but isanteverted on both transabdominal and endovaginal imaging. It measures 8 x4.1 x 3.5 cm. The central endometrial echogenic stripe has a thickness of7.6 mm. No fluid in the endometrial cavity. There is a nabothian cyst inthe cervix. It is about 7 x 4 mm. No uterine mass or contour abnormalityidentified. Both adnexa were scanned extensively with transabdominal andendovaginal probes and neither were able to identify any adnexalstructures. Abundant gas shadowing. No pelvic free fluid.IMPRESSION:1. Anteverted uterus not enlarged and with a normal appearance to theendometrial stripe. Thickness 8 mm without fluid in the endometrial cavityor endocervical canal. No free fluid in the cul-de-sac.2. Small nabothian cyst 7 x 4 mm in the cervix.3. Transabdominal and endovaginal probes do not show any identifiableadnexal tissue with extensive gas shadowing in the adnexal regions. Nogross mass or fluid.Accredited by the [employer] [place] in GynecologicalUltrasound.Td J. Pancho, ELIAN/Ricco guzmán for referring TRISTAN SALMERON to our office. Electronically Signed - TD COOPER MD 04/22/20 13:06 Name Value Range Interpretation Code Description Data Denise rce(s) Supporting Document(s) ID Date Data Source [id number] 04/21/2020 01:53:00 PM EST [facility] ([facility] Name Value Range Interpretation Code Description Data Denise rce(s) Supporting Document(s) Choriogonadotropin.beta subunit ( test) [Pres ence] in Serum or Plasma Laboratory test result [facility] ID Date Data Source [id number] 04/06/2020 02:49:00 PM EST [facility] ([facility] Name Value Range Interpretation Code Description Data Denise rce(s) Supporting Document(s) Cholesterol Level 246 mg/dL [facility] ([facility] Triglycerides Level 244 mg/dL [facility] ([facility] Non-HDL-C 205 mg/dL [facility] HDL Cholesterol 41 mg/dL [facility] LDL Cholesterol 156 mg/dL [facility] Cholesterol Risk Ratio 6.000 [facility] ID Date Data Source [id number] 04/06/2020 02:49:00 PM EST [facility] ([facility] Name Value Range Interpretation Code Description Data Denise rce(s) Supporting Document(s) Thyroxine (T4) free [Mass/volume] in Serum or Plasma 0.98 ng/dL 0.76- 1.46 [facility] ([facility] Thyrotropin [Units/volume] in Serum or Plasma 1.970 uIU/ML 0.358-3.74 0 [facility] ([facility] ID Date Data Source [id number] 04/06/2020 02:49:00 PM EST [facility] ([facility] Name Value Range Interpretation Code Description Data Denise rce(s) Supporting Document(s) Hemoglobin A1c/Hemoglobin.total in Blood 5.4 % [facility] <content>REFERENCE RANGES:</content><br/ ><content></content>
<content><=5.6% NORMAL</content>
<content>5.7-6.4% SUGGESTS IMPAIRED GLUCOSE METABOLISM/PREDIABETIC</content>
<content>>= 6.5% ABNORMAL</content>
<content></content> Estimated Average Glucose 108 mg/dL 60-110 [facility] ID Date Data Source [id number] 04/06/2020 02:49:00 PM EST [facility] ([facility] Name Value Range Interpretation Code Description Data Denise rce(s) Supporting Document(s) Glucose, Fasting 90 mg/dL 70-100 [facility] ([facility] Creatinine For GFR 0.88 mg/dL 0.55-1.30 [facility] Glomerular Filtration Rate Laboratory test result [facility] ([facility] <content>Units are mL/min/1.73 m2</content>
<content></content>
<content>Chronic Kidney Disease Staging per [facility]:</content>
<content></content>
<content>Stage I & II GFR >=60 Normal to Mildly Decreased</content>
<content>Stage III GFR 30- 59 Moderately Decreased</content>
<content>Stage IV GFR 15-29 Severely Decreased</content>
<content>Stage V GFR <15 Very Little GFR Left</content>
<content>ESRD GFR <15 on IN ROOM DINING SERVER</content>
<content></content> Blood Urea Nitrogen 7 mg/dL 7-18 [facility] ([facility] Potassium Serum 4.5 meq/L 3.5-5.1 [facility] Sodium Level 141 meq/L 136-145 [facility] Chloride Level 107 meq/L 98-107 [facility] Carbon Dioxide Level 27 meq/L 21-32 [facility] ([facility] Calcium Level 8.8 mg/dL 8.5-10.1 [facility] Anion Gap 7 meq/L 8-16 [facility] Ast/Sgot 18 U/L 7-37 [facility] Alkaline Phosphatase 85 U/L 45-117 [facility] ([facility] Alt/SGPT 41 U/L 12-78 [facility] Bilirubin,Total 0.2 mg/dL 0.2-1.0 [facility] Total Protein 7.2 GM/DL 6.4-8.2 [facility] Albumin 3.7 GM/DL 3.2-5.2 [facility] Albumin/Globulin Ratio 1.1 1.2-2.2 [facility] ID Date Data Source [id number] 04/06/2020 02:49:00 PM EST [facility] ([facility] Name Value Range Interpretation Code Description Data Denise rce(s) Supporting Document(s) White Blood Count 9.4 10 4.0-10.0 [facility] ([facility] Hemoglobin 12.5 g/dL 12.0-15.5 [facility] Hematocrit 38.8 % 36.0-47.0 [facility] Red Blood Count 4.65 10 4.00-5.40 [facility] Mean Corpuscular Hemoglobin 26.9 pg 27.0-33.0 [facility] Mean Corpuscular HGB Conc 32.2 g/dL 32.0-36.5 [facility] Mean Corpuscular Volume 83.4 fl 80.0-96.0 M [facility] ([facility] Red Cell Distribution Width 13.8 % 11.5-14.5 [facility] Neutrophils % 58.9 % 36.0-66.0 [facility] Platelet Count, Automated 371 10 150-450 [facility] [place] % 8.6 % 2.0-8.0 [facility] Eos % 0.8 % 0.0-3.0 [facility] Lymph % 30.5 % 24.0-44.0 [facility] Baso % 0.8 % 0.0-1.0 [facility] Immature Granulocyte % 0.4 % 0-3.0 [facility] Nucleated Red Blood Cell % 0.0 % 0-0 [facility] ([facility] [place] # 0.8 10 0.0-0.8 [facility] Lymph # 2.9 10 1.5-5.0 [facility] Neutrophils # 5.5 10 1.5-8.5 [facility] Eos # 0.1 10 0.0-0.5 [facility] Baso # 0.1 10 0.0-0.2 [facility] Procedure Social History Code Duration Value Status Description Data Source(s ) Smoking 05/02/2020 12:00:00 AM EDT Patient has never smoked co mpleted Patient has never smoked [facility] Vital Signs ID Date Data Source UNK Name Value Range Interpretation Code Description Data Source(s) Body weight 134.719 kg 134.719 kg [facility] ([facility]) Body mass index (BMI) [Ratio] 56.1 kg/m2 56.1 k g/m2 [facility] ([facility]) Arthur body weight 105 [lb_av] 105 [lb_av] [facility] T ([facility]) Systolic blood pressure 126 mm[Hg] 126 mm[Hg] M [facility] ([facility]) Diastolic blood pressure 72 mm[Hg] 72 mm[Hg] [facility] ([facility]) Body height 61 [in_i] 61 [in_i] [facility] ([facility]) 5'1" Body weight 297.00 [lb_av] 297.00 [lb_av] [facility] ([facility]) Body surface area Derived from formula 2.23 m2 2.23 m2 [facility] ([facility]) Arthur body weight 110 [lb_av] 110 [lb_av] [facility] ([facility] Body mass index (BMI) [Ratio] 54.6 kg/m2 54.6 k g/m2 [facility] ([facility] Systolic blood pressure 140 mm[Hg] 140 mm[Hg] M [facility] ([facility] Oxygen saturation in Arterial blood by Pulse oximetry 97 % 97 % [facility] Diastolic blood pressure 78 mm[Hg] 78 mm[Hg] [facility] Heart rate 83 /min 83 /min [facility] Body temperature 99.0 [degF] 99.0 [degF] [facility] Respiratory rate 20 /min 20 /min [facility] ( [facility] Body height 62.25 [in_i] 62.25 [in_i] [facility] ([facility] 5'2.25" Body weight 301.12 [lb_av] 301.12 [lb_av] [facility] ([facility] Diastolic blood pressure 90 mm[Hg] 90 mm[Hg] [facility] Body height 62.25 [in_i] 62.25 [in_i] [facility] ([facility] 5'2.25" Oxygen saturation in Arterial blood by Pulse oximetry 98 % 98 % [facility] Systolic blood pressure 127 mm[Hg] 127 mm[Hg] M [facility] ([facility] Respiratory rate 18 /min 18 /min [facility] ( [facility] Body mass index (BMI) [Ratio] 54.9 kg/m2 54.9 k g/m2 [facility] Heart rate 105 /min 105 /min [facility] Body temperature 97.6 [degF] 97.6 [degF] [facility] Body weight 302.38 [lb_av] 302.38 [lb_av] [facility] ([facility] Arthur body weight 110 [lb_av] 110 [lb_av] [facility] ([facility] Diastolic blood pressure 84 mm[Hg] 84 mm[Hg] [facility] Heart rate 100 /min 100 /min [facility] Body temperature 98.3 [degF] 98.3 [degF] [facility] Arthur body weight 110 [lb_av] 110 [lb_av] [facility] ([facility] Systolic blood pressure 116 mm[Hg] 116 mm[Hg] M [facility] ([facility] Respiratory rate 17 /min 17 /min [facility] ( [facility] Body height 62.25 [in_i] 62.25 [in_i] [facility] ([facility] 5'2.25" Body weight 301.25 [lb_av] 301.25 [lb_av] [facility] ([facility] Oxygen saturation in Arterial blood by Pulse oximetry 98 % 98 % [facility] ([facility] Body mass index (BMI) [Ratio] 54.7 kg/m2 54.7 k g/m2 [facility]
[2020-12-07 17:27] LABS: ALBUMIN 4.1 GM/DL (3.2-5.2); ALT/SGPT 80 U/L (12-78); BILIRUBIN,DIRECT 0.4 MG/DL (0.0-0.2); BILIRUBIN,TOTAL 0.9 MG/DL (0.2-1.0); BLOOD UREA NITROGEN 5 MG/DL (7-18); CALCIUM LEVEL 9.7 MG/DL (8.5-10.1); CARBON DIOXIDE LEVEL 17 MEQ/L (21-32); CHLORIDE LEVEL 103 MEQ/L (98-107); CREATININE FOR GFR 0.91 MG/DL (0.55-1.30); GLOMERULAR FILTRATION RATE > 60.0 (>60); GLUCOSE, FASTING 86 MG/DL (70-100); LIPASE 570 U/L (73-393); POTASSIUM SERUM 3.5 MEQ/L (3.5-5.1); SODIUM LEVEL 139 MEQ/L (136-145); TOTAL PROTEIN 7.8 GM/DL (6.4-8.2)
[2020-12-07 17:39] LABS: HCG, SERUM QUALITATIVE NEGATIVE (NEGATIVE)
[2020-12-07 17:49] LABS: BASO # 0.1 10^3/uL (0.0-0.2); BASO % 0.8 % (0.0-1.0); EOS % 0.1 % (0.0-3.0); HEMATOCRIT 38.4 % (36.0-47.0); HEMOGLOBIN 12.9 g/dl (12.0-15.5); LYMPH # 1.6 10^3/uL (1.5-5.0); LYMPH % 19.1 % (24.0-44.0); MEAN CORPUSCULAR HEMOGLOBIN 25.6 pg (27.0-33.0); MEAN CORPUSCULAR HGB CONC 33.6 g/dl (32.0-36.5); MEAN CORPUSCULAR VOLUME 76.3 fl (80.0-96.0); MONO # 0.9 10^3/uL (0.0-0.8); NEUTROPHILS # 5.8 10^3/uL (1.5-8.5); NEUTROPHILS % 68.6 % (36.0-66.0); PLATELET COUNT, AUTOMATED 241 10^3/uL (150-450); RED BLOOD COUNT 5.03 10^6/uL (4.00-5.40); WHITE BLOOD COUNT 8.5 10^3/uL (4.0-10.0)
[2020-12-07 17:49] LABS: MAGNESIUM LEVEL 1.8 MG/DL (1.8-2.4)
[2020-12-07] MEDS: GASTROGRAFIN SOLUTION 30ML PO SCH ×2 (18:00→18:30)
--- NOTE | 2020-12-07 18:38 | REP ---
INDICATION: upper abd pain, nausea/vomiting. COMPARISON: CT 08/28/2020. TECHNIQUE: Real-time sonographic evaluation of right upper quadrant performed. FINDINGS: Mobile stones and sludge are seen in the gallbladder without evidence of gallbladder wall thickening.. There is no intrahepatic or extrahepatic biliary dilatation, common bile duct measures 4 mm in maximum diameter. There is diffuse fatty infiltration of the liver. Pancreas is grossly unremarkable, not well seen due to overlying bowel gas. The right kidney demonstrates no hydronephrosis, with a normal size of 9.2 cm in length. No free fluid is seen. IMPRESSION: Gallstones and sludge in the gallbladder without evidence of gallbladder wall thickening, free fluid or biliary dilatation. Diffuse fatty infiltration of the liver. <Electronically signed by Rene Sorto > 12/07/20 [id number]
[2020-12-07] MEDS ORDERED: METOCLOPRAMIDE INJ 10MG/2ML VIAL (J2765 PER 1) IV ONE (19:25)
[2020-12-07] MEDS ORDERED: ISOVUE-370 76% 100ML VIAL As Ordered ONE (19:29)
[2020-12-07 21:12] LABS: CPK CREATINE PHOSPHOKINASE 58 U/L (26-192)
--- NOTE | 2020-12-07 21:13 | REPVR ---
PROCEDURE INFORMATION: Exam: CT Abdomen And Pelvis With Contrast Exam date and time: 12/07/2020 7:39 PM Age: 30 years old Clinical indication: Abdominal pain; Generalized; Prior surgery; Surgery date: <1 month; Additional info: Gastric sleeve 11/22, unable to eat or drink, epigastic pain TECHNIQUE: Imaging protocol: Computed tomography of the abdomen and pelvis with contrast. Radiation optimization: All CT scans at this facility use at least one of these dose optimization techniques: automated exposure control; mA and/or kV adjustment per patient size (includes targeted exams where dose is matched to clinical indication); or iterative reconstruction. Contrast material: ISOVUE 370; Contrast volume: 100 ml; Contrast route: INTRAVENOUS (IV); COMPARISON: CT ABD/PEL W/IV CONTRAST ONLY 08/28/2020 12:00 AM FINDINGS: Liver: Normal. No mass. Gallbladder and bile ducts: Cholelithiasis. Pancreas: Normal. No ductal dilation. Spleen: Normal. No splenomegaly. Adrenal glands: Normal. No mass. Kidneys and ureters: Normal. No hydronephrosis. Stomach and bowel: Evidence of gastric sleeve procedure. Appendix: No evidence of appendicitis. Intraperitoneal space: Unremarkable. No free air. No significant fluid collection. Vasculature: Unremarkable. No abdominal aortic aneurysm. Lymph nodes: Unremarkable. No enlarged lymph nodes. Urinary bladder: Unremarkable as visualized. Reproductive: 3.6 x 3.5 cm cyst in the right ovary. Bones/joints: Unremarkable. No acute fracture. Soft tissues: Unremarkable. IMPRESSION: No acute abdominal or pelvic abnormality. Electronically signed by: Antoni Dove On 12/07/2020 21:12:49 PM
--- NOTE | 2020-12-07 23:07 | REPVR ---
PROCEDURE INFORMATION: Exam: MR Abdomen Without Contrast Exam date and time: 12/07/2020 10:57 PM Age: 30 years old Clinical indication: Abdominal pain; Acute; Prior surgery; Surgery date: <1 month; Surgery type: Vsg surgery; Additional info: R/O choledocolithiasis TECHNIQUE: Imaging protocol: MR of the abdomen without contrast. COMPARISON: CT ABD/PEL W/IV ORAL CONTRAS 12/07/2020 7:36 PM FINDINGS: Liver: No mass. Gallbladder and bile ducts: Cholelithiasis. Common bile duct measures 4 mm. No filling defects. Pancreas: Unremarkable. No ductal dilation. Spleen: Unremarkable. No splenomegaly. Adrenal glands: Unremarkable. No mass. Kidneys and ureters: Unremarkable. No solid mass. No hydronephrosis. Stomach and bowel: Visualized stomach and intestines are unremarkable. Intraperitoneal space: No free fluid. Arteries: No abdominal aortic aneurysm. Bones/joints: Unremarkable. Soft tissues: Unremarkable. Other findings: Small right pleural effusion. IMPRESSION: Cholelithiasis. No evidence for choledocholithiasis. Small right pleural effusion. Electronically signed by: Antoni Dove On 12/07/2020 23:05:57 PM
[2020-12-07] MEDS ORDERED: OMEP1CAP73 PO (23:26)
[2020-12-07] MEDS ORDERED: HOME MED LIST COMPLETE! XX SCH (23:30)
--- NOTE | 2020-12-07 23:46 | HPEPDOC ---
[facility] Medical History & Physical Date of Admission Dec 07, 2020 Date of Service: Dec 07, 2020 History and Physical CHIEF COMPLAINT: Abdominal pain HISTORY OF PRESENT ILLNESS: 30-year-old female history of obesity and recent gastric sleeve surgery presents with a five-day history of worsening abdominal pain associated with nausea and vomiting and a poor appetite and oral intake. Pain initially rated as sharp 8/10 now down to 1/10. Pain mostly. Umbilical radiates to her back. She has not had this pain before. Patient had gastric sleeve surgery November 22 in [place] but no follow-up since and does not have a PCP. She denies a history of pancreatitis. In the emergency department surgery was consulted ultrasound reveals gallstones MRCP was recommended by surgery which was negative and they advised admission and Dr. Watts will see the patient in the morning for gallstone pancreatitis. PAST MEDICAL/SURGICAL HISTORY: Obesity 2 C-sections Appendectomy Gastric sleeve surgery 11/22/2020 SOCIAL HISTORY: Denies alcohol use Denies tobacco use Denies illicit drug use FAMILY HISTORY: Reviewed and none contributory to this admission ALLERGIES: Please see below. REVIEW OF SYSTEMS: 10 point review of systems complete all negative otherwise stated in HPI HOME MEDICATIONS: Please see below. PHYSICAL EXAMINATION: Constitutional: Awake and alert, in no apparent distress, obese, appears comfortable sitting up in bed. ENT: Sclera are clear. Mucosa is dry Respiratory: Lungs CTA bilaterally. No respiratory distress. No use of accessory muscles. Cardiovascular: RRR S1 and S2 are normal Gastrointestinal: Abdomen is soft, non distended, mild tenderness to palpation, BS present. obese abdomen. Musculoskeletal: No lower extremity edema. Neurologic: No focal neurological deficit. Mental Status: A&O x3, normal affect Skin: Warm, dry LABORATORY DATA: See below. IMAGING: See chart MICROBIOLOGY: Please see below. ASSESSMENT/PLAN 30-year-old female history of obesity and recent gastric sleeve surgery presents with abdominal pain found to have pancreatitis likely gallstone pancreatitis admitted for further medical workup and management and evaluation by surgery. # Pancreatitis: Suspected to be gallstone pancreatitis. Stone seen on ultrasound. MRCP negative. Admitted to medical bed. IV fluids. Advance diet as tolerated start with clear liquid diet. Pain control IV morphine. Follow-up lipid panel. Denies striking alcohol. Surgery consulted, appreciate recs. # Recent gastric sleeve: Dietary consulted. Needs good follow-up at time of discharge. # Obesity: Complicates care. BMI 48.8. Follow-up A1c and lipid panel. # DVT prophylaxis: Heparin A Teresa Hospitalist Vital Signs Vital Signs Date Time Temp Pulse Resp B/P (MAP) Pulse Ox O2 Delivery O2 Flow Rate FiO2 12/07/20 19:20 96.0 71 18 111/67 (82) 100 Room Air Laboratory Data Labs 24H Laboratory Tests 2 12/07/20 15:51: Immature Granulocyte % (Auto) 0.4, Neutrophils (%) (Auto) 68.6H, Lymphocytes (%) (Auto) 19.1L, Monocytes (%) (Auto) 11.0H, Eosinophils (%) (Auto) 0.1, Basophils (%) (Auto) 0.8, Neutrophils # (Auto) 5.8, Lymphocytes # (Auto) 1.6, Monocytes # (Auto) 0.9H, Eosinophils # (Auto) 0.0, Basophils # (Auto) 0.1, Nucleated Red Blood Cells % (auto) 0.0 12/07/20 16:13: Anion Gap 19H, Glomerular Filtration Rate > 60.0, Calcium Level 9.7, Magnesium Level 1.8, Total Bilirubin 0.9, Direct Bilirubin 0.4H, Aspartate Amino Transf (AST/SGOT) 43H, Alanine Aminotransferase (ALT/SGPT) 80H, Alkaline Phosphatase 103, Total Creatine Kinase 58, Total Protein 7.8, Albumin 4.1, Albumin/Globulin Ratio 1.1L, Lipase 570H, Human Chorionic Gonadotropin, Qual NEGATIVE CBC/BMP Laboratory Tests 12/07/20 15:51 12/07/20 16:13 Home Medications Scheduled PRN Omeprazole (Omeprazole) 20 Mg Capsule.dr, 20 MG PO DAILY PRN for HEARTBURN/INDIGESTION Allergies Coded Allergies: Penicillins (Verified Allergy, Unknown, hives, throat closes up, 08/28/20) amoxicillin (Verified Allergy, Unknown, urticaria, respiratory depression, 02/22/19) ARIEL SCOTT MD Dec 07, 2020 23:46
--- OUTSIDE RECORDS SUMMARY | 2020-12-07 23:54 | CCD ---
Author Author [facility] Organization [facility] Address Unknown Phone Unavailable Care Team Providers Care Unit Receptionist Name Role Phone Rakan BEACH MD Unavailable [...] O PRICE MD Unavailable Unavailable Pleskach, Carla DE ICER INSTALLER Unavailable Unavailable Pleskach, Carla DE ICER INSTALLER Unavailable Unavailable Pleskach, Carla DE ICER INSTALLER Unavailable Unavailable Pleskach, Carla DE ICER INSTALLER Unavailable Unavailable Pleskach, Carla DE ICER INSTALLER Unavailable Unavailable Pleskach, Carla DE ICER INSTALLER Unavailable Unavailable Pleskach, Carla DE ICER INSTALLER Unavailable Unavailable Pleskach, Carla DE ICER INSTALLER Unavailable Unavailable Pleskach, Carla DE ICER INSTALLER Unavailable Unavailable Pleskach, Carla DE ICER INSTALLER Unavailable Unavailable Pleskach, Carla DE ICER INSTALLER Unavailable Unavailable Pleskach, Carla DE ICER INSTALLER Unavailable Unavailable Pleskach, Carla DE ICER INSTALLER Unavailable Unavailable Pleskach, Carla DE ICER INSTALLER Unavailable Unavailable Pleskach, Carla DE ICER INSTALLER Unavailable Unavailable Pleskach, Carla DE ICER INSTALLER Unavailable Unavailable Pleskach, Carla DE ICER INSTALLER Unavailable Unavailable Pleskach, Carla DE ICER INSTALLER Unavailable Unavailable Pleskach, Carla DE ICER INSTALLER Unavailable Unavailable Pleskach, Carla DE ICER INSTALLER Unavailable Unavailable Pleskach, Carla DE ICER INSTALLER Unavailable Unavailable Pleskach, Carla DE ICER INSTALLER Unavailable Unavailable Pleskach, Carla DE ICER INSTALLER Unavailable Unavailable Pleskach, Carla DE ICER INSTALLER Unavailable Unavailable Pleskach, Carla DE ICER INSTALLER Unavailable Unavailable Pleskach, Carla DE ICER INSTALLER Unavailable Unavailable Pleskach, Carla DE ICER INSTALLER Unavailable Unavailable Pleskach, Carla DE ICER INSTALLER Unavailable Unavailable Pleskach, Carla DE ICER INSTALLER Unavailable Unavailable Pleskach, Carla DE ICER INSTALLER Unavailable Unavailable Pleskach, Carla DE ICER INSTALLER Unavailable Unavailable Pleskach, Carla DE ICER INSTALLER Unavailable Unavailable Pleskach, Carla DE ICER INSTALLER Unavailable Unavailable Pleskach, Carla DE ICER INSTALLER Unavailable Unavailable Pleskach, Carla DE ICER INSTALLER Unavailable Unavailable Pleskach, Carla DE ICER INSTALLER Unavailable Unavailable Pleskach, Carla DE ICER INSTALLER Unavailable Unavailable Pleskach, Carla DE ICER INSTALLER Unavailable Unavailable Pleskach, Carla DE ICER INSTALLER Unavailable Unavailable Pleskach, Carla DE ICER INSTALLER Unavailable Unavailable Pleskach, Carla DE ICER INSTALLER Unavailable Unavailable Pleskach, Carla DE ICER INSTALLER Unavailable Unavailable Re-disclosure Warning The records that [...] is protected by Article 27-F of the [facility] Public Health law. If you continue you may have access to information: Regarding HIV / AIDS; Provided by facilities licensed or operated by the [facility] Office of Mental Health; or Provided by the [facility] Office for People With Developmental Disabilities. If such information is present, then the following [facility] mandated warning applies: This information has been [...] law may result in a fine or nursing home sentence or both. A general authorization for the release of medical or other information is NOT sufficient authorization for further disc losure. Encounters Encounter Providers Location Date Indications Data Source(s ) Office Visit Attender: PRICE Tee/Malik/Basilio/Es indl 09/07/2020 09:30:00 AM EDT [facility] ([facility], ) Outpatient Attender: Carla Ray [facility] Main Office 05/02/2020 0 8:15:00 AM EDT [facility] ([facility] Outpatient Attender: Carla Ray [facility] Main Office 04/21/2020 1 2:00:00 PM EST [facility] ([facility] Outpatient Attender: Carla Ray [facility] Main Office 04/06/2020 0 2:00:00 PM EST [facility] ([facility] Medications No Information Insurance Providers Payer name Policy type / Coverage type Policy ID Covered libertarian ID Covered libertarian's relationship to banuelos Policy Banuelos Plan Information [facility] [id number] SP [id number] [facility] O [id number] S [id number] [facility] O UNAVAILABLE [id number] P UNAV AILABLE [employer] [facility] O [id number] P [id number] [facility] [employer] - O/P [id number] 01 [id number] [facility] [id number] 2 [id number] Problems, Conditions, and Diagnoses No Information Surgeries/Procedures Procedure Description Date Indications Data Source(s) Brief Emotional/Behav Assessment W/ Scoring Doc Per Standard Inst 04/06/2020 12:00:00 AM EST [facility] ([facility] Results ID Date Data Source [id number] 11/15/2020 11:00:00 AM EDT [facility] Name Value Range Interpretation Code Description Data Denise rce(s) Supporting Document(s) SARS coronavirus 2 RNA Not Detected [facility] This lab was ordered by [facility] [id number] and reported by [facility]. ID Date Data Source [id number] 08/28/2020 01:23:00 AM EDT [facility] Name Value Range Interpretation Code Description Data Denise rce(s) Supporting Document(s) SARS coronavirus 2 RNA [Presence] in Res piratory specimen by MALATHI with probe detection NEGATIVE [facility] This lab was ordered by [facility] a nd reported by [facility]. ID Date Data Source [id number] 04/22/2020 12:00:00 AM EST [facility] Noel Giordano Patient Name: TEODORA [id number] Date [facility] : 1990[facility] [place] [address] Date of Exam: [facility]#: Fax: [phone] EXAM: US PELVIC COMPLETECLINICAL INFORMATION: [...] regions. Nogross mass or fluid.Accredited by the [employer] in GynecologicalUltrasound.ELIAN Posada/Ricco you for referring TRISTAN SALMERON to our office. Electronically Signed - TD COOPER MD 04/22/20 13:06 Name Value Range Interpretation Code Description Data Denise rce(s) Supporting Document(s) ID Date Data Source [id number] 04/22/2020 12:00:00 AM [facility] Noel Giordano Patient Name: CRISTO [id number] Date of : 1990[place] [address] Date of Exam: 1P#: Fax: [phone] EXAM: [...] regions. Nogross mass or fluid.Accredited by the [employer] in GynecologicalUltrasound.Td J. Pancho, ELIAN/Ricco guzmán for referring TRISTAN SALMERON to our office. Electronically Signed - TD COOPER MD 04/22/20 13:06 Name Value Range Interpretation Code Description Data Denise rce(s) Supporting Document(s) ID Date Data Source [id number] 04/21/2020 01:53:00 PM EST [facility] ([facility] Name Value Range Interpretation Code Description Data Denise rce(s) Supporting Document(s) Choriogonadotropin.beta subunit ( test) [Pres ence] in Serum or Plasma Laboratory test result [facility] ID Date Data Source [id number] 04/06/2020 02:49:00 PM EST [facility] ([facility] [...] [facility] ID Date Data Source [id number] 04/06/2020 02:49:00 PM EST [facility] ([facility] Name Value Range Interpretation Code Description Data Denise rce(s) Supporting Document(s) Thyroxine (T4) free [Mass/volume] in Serum or Plasma 0.98 ng/dL 0.76- 1.46 [facility] ([facility] Thyrotropin [Units/volume] in Serum or Plasma 1.970 uIU/ML 0.358-3.74 0 [facility] ID Date Data Source [id number] 04/06/2020 02:49:00 PM EST [facility] ([facility] Name Value Range Interpretation Code Description Data Denise rce(s) Supporting Document(s) Hemoglobin A1c/Hemoglobin.total in Blood 5.4 % [facility] <content>REFERENCE RANGES:</content><br/ ><content></content>
<content><=5.6% NORMAL</content>
<content>5.7-6.4% SUGGESTS IMPAIRED GLUCOSE METABOLISM/PREDIABETIC</content>
<content>>= 6.5% ABNORMAL</content>
<content></content> Estimated Average Glucose 108 mg/dL 60-110 [facility] ID Date Data Source [id number] 04/06/2020 02:49:00 PM EST [facility] ([facility] [...] Little GFR Left</content>
<content>ESRD GFR <15 on ASPHALT ENGINEER</content>
<content></content> Blood Urea Nitrogen 7 mg/dL 7-18 [...] [facility] ID Date Data Source [id number] 04/06/2020 02:49:00 PM EST [facility] ([facility] [...] 10 150-450 [facility] ([facility] Hand % 8.6 % 2.0-8.0 [facility] ([facility] [...] 0-0 [facility] ([facility] Hand # 0.8 10 0.0-0.8 [facility] ([facility] [...] Range Interpretation Code Description Data Source(s) Body mass index (BMI) [Ratio] 56.1 kg/m2 56.1 k g/m2 [facility] ([facility]) [place] body weight 105 [lb_av] 105 [lb_av] [facility] T ([facility]) Body weight 134.719 kg 134.719 kg [facility] ([facility]) Body surface area Derived from formula 2.23 m2 2.23 m2 [facility] ([facility]) Systolic blood pressure 126 mm[Hg] 126 mm[Hg] M EDENT ([facility]) Diastolic blood pressure 72 mm[Hg] 72 mm[Hg] [facility] ([facility]) Body height 61 [in_i] 61 [in_i] [facility] ([facility]) 5'1" Body weight 297.00 [lb_av] 297.00 [lb_av] [facility] T ([facility], ) [place] body weight 110 [lb_av] 110 [lb_av] [facility] T ([facility] Body mass index (BMI) [Ratio] 54.6 kg/m2 54.6 k g/m2 [facility] Systolic blood pressure 140 mm[Hg] 140 mm[Hg] M [facility] ([facility] Diastolic blood pressure [...] [lb_av] [facility] T ([facility] [place] body weight 110 [lb_av] 110 [lb_av] [facility] ([facility] Diastolic blood pressure 84 mm[Hg] 84 mm[Hg] [facility] Heart rate 100 /min 100 /min [facility] Body temperature 98.3 [degF] 98.3 [degF] [facility] Systolic blood pressure 116 mm[Hg] 116 mm[Hg] M [facility] ([facility] Respiratory rate 17 /min 17 /min [facility] ( [facility] Body height 62.25 [in_i] 62.25 [in_i] [facility] ([facility] 5'2.25" [place] body weight 110 [lb_av] 110 [lb_av] [facility] T ([facility] Body weight 301.25 [lb_av] 301.25 [lb_av] [facility] T ([facility] Oxygen saturation in Arterial blood by Pulse oximetry 98 % 98 % [facility] ([facility] Body mass index (BMI) [Ratio] 54.7 kg/m2 54.7 k g/m2 [facility]
[2020-12-08] MEDS ORDERED: PANTOPRAZOLE 40MG VIAL (C9113 PER 1) IV SCH
[2020-12-08] MEDS ORDERED: MORPHINE 2 MG/ML 1ML VIAL (J2270) IV PRN (00:20)
[2020-12-08 00:41] LABS: RSV AMPLIFICATION NEGATIVE (NEGATIVE)
[2020-12-08] MEDS: NS 1,000 ML IV SCH ×3 (01:34→13:30)
[2020-12-08 02:29] VITALS: BP 102/57
[2020-12-08] MEDS: ONDANSETRON 4MG/2ML VIAL IV PRN ×2 (03:02→09:25)
[2020-12-08 05:10] VITALS: BP 118/82
[2020-12-08] MEDS: HEPARIN SOD (PORCINE) 5000UNITS/ML 1ML VIAL/SYRINGE SC SCH ×2 (05:44→14:00)
[2020-12-08 06:37] LABS: HEMATOCRIT 35.1 % (36.0-47.0); HEMOGLOBIN 11.6 g/dl (12.0-15.5); MEAN CORPUSCULAR HEMOGLOBIN 25.8 pg (27.0-33.0); MEAN CORPUSCULAR VOLUME 78.2 fl (80.0-96.0); PLATELET COUNT, AUTOMATED 222 10^3/uL (150-450); RED BLOOD COUNT 4.49 10^6/uL (4.00-5.40); WHITE BLOOD COUNT 6.8 10^3/uL (4.0-10.0)
[2020-12-08 07:09] LABS: ALBUMIN 3.2 GM/DL (3.2-5.2); ALT/SGPT 60 U/L (12-78); BILIRUBIN,TOTAL 0.8 MG/DL (0.2-1.0); BLOOD UREA NITROGEN 4 MG/DL (7-18); CALCIUM LEVEL 8.6 MG/DL (8.5-10.1); CARBON DIOXIDE LEVEL 19 MEQ/L (21-32); CHLORIDE LEVEL 111 MEQ/L (98-107); CHOLESTEROL LEVEL 131 MG/DL (<200); CHOLESTEROL RISK RATIO 4.366 (<5); GLOMERULAR FILTRATION RATE > 60.0 (>60); GLUCOSE, FASTING 72 MG/DL (70-100); HDL CHOLESTEROL 30 MG/DL (>40); LDL CHOLESTEROL 84 MG/DL (<100); NON-HDL-C 101 MG/DL; POTASSIUM SERUM 3.3 MEQ/L (3.5-5.1); SODIUM LEVEL 144 MEQ/L (136-145); TOTAL PROTEIN 6.1 GM/DL (6.4-8.2); TRIGLYCERIDES LEVEL 83 MG/DL (<150)
[2020-12-08] MEDS ORDERED: KCL 10MEQ/100ML SWI (KRUN) 10 MEQ in IV 1 EA IV SCH (08:00)
[2020-12-08] MEDS ORDERED: NYSTATIN 100,000 UNITS/GM TOPICAL PWD 15 GM TOP SCH (09:00)
[2020-12-08 09:26] LABS: HEMOGLOBIN A1c 4.5 %
--- NOTE | 2020-12-08 09:48 | IPNPDOC ---
Text Note Date of Service The patient was seen on 12/08/20. NOTE General surgery. Dr Watts The patient is a 30-year-old female with history of gastric sleeve surgery approximately 2 weeks ago, admitted with possible gallstone pancreatitis. This morning, the patient states she has been drinking water. She has a clear liquid tray at her bedside, she has not yet had breakfast. She reports abdominal pain is improved. She denies nausea or vomiting. Afebrile. VSS Awake and alert, resting in bed comfortably, no acute distress S1-S2 regular rate rhythm Lungs are clear to auscultation Abdomen with healed surgical scars, soft, nondistended, mild tenderness in the right upper quadrant area. No guarding, no grimacing Abdomen MRI IMPRESSION: Cholelithiasis. No evidence for choledocholithiasis. Small right pleural effusion. Electronically signed by: Antoni Dove On 12/07/2020 23:05:57 PM Assessment/plan Patient with history of gastric sleeve surgery approximately 2 weeks ago, admitted with possible gallstone pancreatitis. Patient is reviewed as per Dr. Watts The patient reports improvement in abdominal discomfort this morning. WBC this morning 6.8 LFTs normalized, AST 29, ALT 60. Has had sips of water, has a clear liquid tray at the bedside. We will see how she tolerates clear liquids. IVF. Plan to consider elective laparoscopic cholecystectomy as outpatient. Continue to monitor VS,Fishbone, I+O VS, Fishbone, I+O Laboratory Tests 12/07/20 15:51 12/07/20 16:13 12/08/20 05:54 Vital Signs Date Time Temp Pulse Resp B/P (MAP) Pulse Ox O2 Delivery O2 Flow Rate FiO2 12/08/20 05:10 97.7 83 20 118/82 (94) 98 Room Air I&O- Last 24 Hours up to 6 AM 12/08/20 05:59 Intake Total 1160 ml Balance 1160 ml Rosita Wong Dec 08, 2020 09:28
[2020-12-08] MEDS ORDERED: POTASSIUM CHLORIDE 10% LIQ 20 MEQ/15 ML UDC PO ONE (10:15)
[2020-12-08] MEDS ORDERED: POTASSIUM CHLORIDE 10MEQ SR TABLET PO ONE (11:45)
[2020-12-08] MEDS ORDERED: ZOFR4TAB16 PO (16:12)
--- NOTE | 2020-12-08 18:56 | ECGEPIP ---
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
--- NOTE | 2020-12-08 19:38 | DS.PDOC ---
Discharge Summary General Date of Admission Dec 07, 2020 at 23:46 Date of Discharge 12/08/20 Attending Physician: Elizabeth Angel MD Discharge Summary HISTORY OF PRESENT ILLNESS: 30-year-old female history of obesity and recent gastric sleeve surgery presents with a five-day history of worsening abdominal pain associated with nausea and vomiting and a poor appetite and oral intake. Pain initially rated as sharp 8/10 now down to 1/10. Pain mostly. Umbilical radiates to her back. She has not had this pain before. Patient had gastric sleeve surgery November 22 in [place] but no follow-up since and does not have a PCP. She denies a history of pancreatitis. In the emergency department surgery was consulted ultrasound reveals gallstones MRCP was recommended by surgery which was negative and they advised admission for gallstone pancreatitis. HOSPITAL COURSE: Patient denied increased abdominal pain with clear liquid diet over the evening. Patient had no abdominal pain on exam the next morning. Her AST and ALT normalized, W BC was within normal limits. The patient states that she had a recent gastric sleeve done and she is currently on a clear liquid diet anyway at home. She is not eating any less than she would at home either. I discussed the case with Dr. Watts who was comfortable with us discharge patient to follow- up with his clinic. The patient will be needing an elective cholecystectomy anyway and with the recent gastric sleeve she would've needed to touch base with surgical team in the area regardless. At the time of discharge the patient denied any abdominal pain, nausea, vomiting, fevers, chills, shortness of breath or chest pain. PAST MEDICAL/SURGICAL HISTORY: Obesity 2 C-sections Appendectomy Gastric sleeve surgery 11/22/2020 SOCIAL HISTORY: Denies alcohol use Denies tobacco use Denies illicit drug use FAMILY HISTORY: Reviewed and none contributory to this admission ALLERGIES: Please see below. DISCHARGE MEDICATIONS: Please see below. PHYSICAL EXAMINATION: vs: Please see below General: Awake and alert, in no apparent distress, obese, appears comfortable sitting up in bed. ENT: Sclera are clear. Mucosa is dry Respiratory: Lungs CTA bilaterally. No respiratory distress. No use of accessory muscles. Cardiovascular: RRR S1 and S2 are normal Gastrointestinal: Abdomen is soft, non distended, mild tenderness to palpation, BS present. obese abdomen. Musculoskeletal: No lower extremity edema. Neurologic: No focal neurological deficit. Mental Status: A&O x3, normal affect Skin: Warm, dry LABORATORY DATA: See below. IMAGING: See chart MICROBIOLOGY: Please see below. ASSESSMENT/PLAN 30-year-old female history of obesity and recent gastric sleeve surgery presents with abdominal pain found to have pancreatitis likely gallstone pancreatitis admitted for further medical workup and management and evaluation by surgery. # Pancreatitis: Suspected to be gallstone pancreatitis. Stone seen on ultrasound. MRCP negative. Tolerating a clear liquid diet at what her baseline was prior to coming into the hospital. Plan is to discharge today to follow-up with surgery. Discussed the case with surgery prior to her discharge. Advise follow-up with primary care provider as well as. # Recent gastric sleeve: Clear liquid diet. Needs good follow-up with surgical team at discharge # Obesity: Complicates care. BMI 48.8. Follow-up with primary care provider TIME SPENT ON DISCHARGE: 35 minutes. Vital Signs/I&Os Vital Signs Date Time Temp Pulse Resp B/P (MAP) Pulse Ox O2 Delivery O2 Flow Rate FiO2 12/08/20 05:10 97.7 83 20 118/82 (94) 98 Room Air I&O- Last 24 Hours up to 6 AM 12/08/20 06:00 Intake Total 2120 ml Output Total 150 ml Balance 1970 ml Laboratory Data Labs 24H Laboratory Tests 2 12/07/20 23:33: Coronavirus (COVID-19)(PCR) NEGATIVE, Influenza Type A (RT-PCR) NEGATIVE, Influenza Type B (RT-PCR) NEGATIVE, Respiratory Syncytial Virus (PCR) NEGATIVE 12/08/20 05:54: Nucleated Red Blood Cells % (auto) 0.0, Anion Gap 14, Glomerular Filtration Rate > 60.0, Estimated Mean Plasma Glucose 82, Hemoglobin A1c 4.5, Calcium Level 8.6, Total Bilirubin 0.8, Aspartate Amino Transf (AST/SGOT) 29, Alanine Aminotransferase (ALT/SGPT) 60, Alkaline Phosphatase 76, Total Protein 6.1#L, Albumin 3.2#, Albumin/Globulin Ratio 1.1L, Triglycerides Level 83, Total Cholesterol 131, LDL Cholesterol 84, Non-HDL Cholesterol (LDL + VLDL) 101, Total HDL Cholesterol 30L, Cholesterol/HDL Ratio 4.366 CBC/BMP Laboratory Tests 12/08/20 05:54 Discharge Medications Scheduled PRN Omeprazole (Omeprazole) 20 Mg Capsule.dr, 20 MG PO DAILY PRN for HEARTBURN/INDIGESTION, (Reported) Ondansetron HCl (Zofran) 4 Mg Tablet, 4 MG PO TIDP PRN for NAUSEA Allergies Coded Allergies: Penicillins (Verified Allergy, Unknown, hives, throat closes up, 08/28/20) amoxicillin (Verified Allergy, Unknown, urticaria, respiratory depression, 02/22/19) Elizabeth Angel MD Dec 08, 2020 19:38
== END 2020-12-08 17:30 | disposition home or self-care (01) | DRG 439 ==
LOC: M ED 13:31 → M ED INP 23:46 → M MSPAV 12-08 02:30
PROVIDERS: ADMIT Family Medicine; ATTEND Internal Medicine
DX: K85.10 Biliary acute pancreatitis without necrosis or infection (principal); Z68.42 Body mass index [BMI] 45.0-49.9, adult; E66.9 Obesity, unspecified; K80.20 Calculus of gallbladder without cholecystitis without obstruction; Z98.84 Bariatric surgery status; Z90.49 Acquired absence of other specified parts of digestive tract; Z88.0 Allergy status to penicillin; Z79.899 Other long term (current) drug therapy; Z20.822 Contact with and (suspected) exposure to COVID-19

== ENCOUNTER 2020-12-17 06:39 | Emergency (ER) | payer OTHER ==
[~2020-12-17] VITALS: Ht 152.4 cm; Wt 116.7 kg
[~2020-12-17 06:39] MED LIST changes: +OMEP1CAP73 PO; +ZOFR4TAB16 PO
[2020-12-17 06:42] VITALS: BP 122/76
--- OUTSIDE RECORDS SUMMARY | 2020-12-17 06:51 | CCD ---
Author Author [facility] Organization [facility] Address Unknown Phone Unavailable Care Team Providers Care Clinical Nursing Instructor Name Role Phone Rakan BEACH MD Unavailable [...] Unavailable YONGRakan BRIGGS MD Unavailable Unavailable YONGRakan MD Unavailable Unavailable YONGRakan MD Unavailable Unavailable YONGRakan BRIGGS MD Unavailable Unavailable YONGRakan BRIGGS MD Unavailable Unavailable YONGRakan BRIGGS MD Unavailable Unavailable YONGRakan MD Unavailable Unavailable YONGRakan MD Unavailable Unavailable YONGRakan BRIGGS MD Unavailable [...] Unavailable Unavailable Rakan BEACH MD Unavailable Unavailable Pleskach, Carla COOKER LOADER Unavailable Unavailable Pleskach, Carla COOKER LOADER Unavailable Unavailable Pleskach, Carla COOKER LOADER Unavailable Unavailable Pleskach, Carla COOKER LOADER Unavailable Unavailable Pleskach, Carla COOKER LOADER Unavailable Unavailable Pleskach, Carla COOKER LOADER Unavailable Unavailable Pleskach, Carla COOKER LOADER Unavailable Unavailable Pleskach, Carla COOKER LOADER Unavailable Unavailable Pleskach, Carla COOKER LOADER Unavailable Unavailable Pleskach, Carla COOKER LOADER Unavailable Unavailable Pleskach, Carla COOKER LOADER Unavailable Unavailable Pleskach, Carla COOKER LOADER Unavailable Unavailable Pleskach, Carla COOKER LOADER Unavailable Unavailable Pleskach, Carla COOKER LOADER Unavailable Unavailable Pleskach, Carla COOKER LOADER Unavailable Unavailable Pleskach, Carla COOKER LOADER Unavailable Unavailable Pleskach, Carla COOKER LOADER Unavailable Unavailable Pleskach, Carla COOKER LOADER Unavailable Unavailable Pleskach, Carla COOKER LOADER Unavailable Unavailable Pleskach, Carla COOKER LOADER Unavailable Unavailable Pleskach, Carla COOKER LOADER Unavailable Unavailable Pleskach, Carla COOKER LOADER Unavailable Unavailable Pleskach, Carla COOKER LOADER Unavailable Unavailable Pleskach, Carla COOKER LOADER Unavailable Unavailable Pleskach, Carla COOKER LOADER Unavailable Unavailable Pleskach, Carla COOKER LOADER Unavailable Unavailable Pleskach, Carla COOKER LOADER Unavailable Unavailable Pleskach, Carla COOKER LOADER Unavailable Unavailable Pleskach, Carla COOKER LOADER Unavailable Unavailable Pleskach, Carla COOKER LOADER Unavailable Unavailable Pleskach, Carla COOKER LOADER Unavailable Unavailable Pleskach, Carla COOKER LOADER Unavailable Unavailable Pleskach, Carla COOKER LOADER Unavailable Unavailable Pleskach, Carla COOKER LOADER Unavailable Unavailable Pleskach, Carla COOKER LOADER Unavailable Unavailable Pleskach, Carla COOKER LOADER Unavailable Unavailable Pleskach, Acrla COOKER LOADER Unavailable Unavailable Pleskach, Carla COOKER LOADER Unavailable Unavailable Pleskach, Carla COOKER LOADER Unavailable Unavailable Pleskach, Carla COOKER LOADER Unavailable Unavailable Pleskach, Carla COOKER LOADER Unavailable Unavailable Pleskach, Carla COOKER LOADER Unavailable Unavailable Pleskach, Carla COOKER LOADER Unavailable Unavailable Pleskach, Carla COOKER LOADER Unavailable Unavailable Re-disclosure Warning The records that [...] law may result in a fine or correction sentence or both. A general authorization for the release of medical or other information is NOT sufficient authorization for further disc losure. Encounters Encounter Providers Location Date Indications Data Source(s ) Office Visit Attender: PRICE Tee/Malik/Basilio/Es indl 09/07/2020 09:30:00 AM EDT [facility] ([facility] Outpatient Attender: Carla Ray [facility] Main Office 05/02/2020 0 8:15:00 AM EDT [facility] ([facility] Outpatient Attender: Carla Ray [facility] Main Office 04/21/2020 1 2:00:00 PM EST [facility] ([facility] Outpatient Attender: Carla Ray [facility] Main Office 04/06/2020 0 2:00:00 PM EST [facility] ([facility] Medications Medication Brand Name Start Date Product Form Dose Route Admi nistrative Instructions Pharmacy Instructions Status Indications Reaction Description Data Source(s) No Active Medications 09/07/2020 12:00:00 AM EDT completed [facility] ([facility] ) Insurance Providers Payer name Policy type / Coverage type Policy ID Covered democrat ID Covered democrat's relationship to banuelos Policy Banuelos Plan Information [facility] [id number] SP [id number] [facility] O [id number] S [id number] [facility] O UNAVAILABLE [id number] P UNAV AILABLE [facility] O [id number] P [id number] [facility] - O/P [id number] 01 [id number] [facility] [id number] Problems, Conditions, and Diagnoses No Information Surgeries/Procedures Procedure Description Date Indications Data Source(s) Brief Emotional/Behav Assessment W/ Scoring Doc Per Standard Inst 04/06/2020 12:00:00 AM EST [facility] Results ID Date Data Source [id number] 12/07/2020 11:33:00 PM EDT [facility] Name Value Range Interpretation Code Description Data Denise rce(s) Supporting Document(s) SARS coronavirus 2 RNA [Presence] in Res piratory specimen by MALATHI with probe detection NEGATIVE [facility] This lab was ordered by [facility] a nd reported by [facility]. ID Date Data Source [id number] 11/15/2020 11:00:00 AM EDT [facility] Name Value Range Interpretation Code Description Data Denise rce(s) Supporting Document(s) SARS coronavirus 2 RNA Not Detected [facility] This lab was ordered by [facility] [address] and reported by [facility]. ID Date Data Source [id number] 08/28/2020 01:23:00 AM EDT [facility] Name Value Range Interpretation Code Description Data Denise rce(s) Supporting Document(s) SARS coronavirus 2 RNA [Presence] in Res piratory specimen by MALATHI with probe detection NEGATIVE [facility] This lab was ordered by [facility] a nd reported by [facility]. ID Date Data Source [id number] 04/22/2020 12:00:00 AM EST [facility] Noel Giordano Patient Name: TEODORA [id number] [facility] 1990[facility] [address] Date of Exam: [facility]#: Fax: [phone] EXAM: US PELVIC COMPLETECLINICAL [...] regions. Nogross mass or fluid.Accredited by the [employer] in GynecologicalUltrasound.Td Deleon, ELIAN/Ricco you for referring TRISTAN SALMERON to our office. Electronically Signed - TD DELEON MD 04/22/20 13:06 Name Value Range Interpretation Code Description Data Denise rce(s) Supporting Document(s) ID Date Data Source [id number] 04/22/2020 12:00:00 AM EST [facility] Noel Giordano Patient Name: TEODORA [id number] Date of : 1990[place] [address] Date of Exam: 04/22/2020#: Fax: [phone] EXAM: US PELVIC COMPLETECLINICAL INFORMATION: [...] regions. Nogross mass or fluid.Accredited by the [employer] in GynecologicalUltrasound.Td Deleon, ELIAN/Ricco you for referring TRISTAN SALMERON to our office. Electronically Signed - TD DELEON MD 04/22/20 13:06 Name Value Range Interpretation Code Description Data Denise rce(s) Supporting Document(s) ID Date Data Source [id number] 04/21/2020 01:53:00 PM EST [facility] ([facility] Name Value Range Interpretation Code Description Data Denise rce(s) Supporting Document(s) Choriogonadotropin.beta subunit ( test) [Pres ence] in Serum or Plasma Laboratory test result [facility] ID Date Data Source [id number] 04/06/2020 02:49:00 PM EST [facility] ([facility] [...] [facility] ID Date Data Source [id number] 04/06/2020 02:49:00 PM EST [facility] ([facility] Name Value Range Interpretation Code Description Data Denise rce(s) Supporting Document(s) Thyroxine (T4) free [Mass/volume] in Serum or Plasma 0.98 ng/dL 0.76- 1.46 [facility] ([facility] Thyrotropin [Units/volume] in Serum or Plasma 1.970 uIU/ML 0.358-3.74 0 [facility] ([facility] ID Date Data Source [id number] 04/06/2020 02:49:00 PM EST [facility] ([facility] Name Value Range Interpretation Code Description Data Denise rce(s) Supporting Document(s) Hemoglobin A1c/Hemoglobin.total in Blood 5.4 % [facility] ([facility] <content>REFERENCE RANGES:</content><br/ ><content></content>
<content><=5.6% NORMAL</content>
<content>5.7-6.4% SUGGESTS IMPAIRED GLUCOSE METABOLISM/PREDIABETIC</content>
<content>>= 6.5% ABNORMAL</content>
<content></content> Estimated Average Glucose 108 mg/dL 60-110 [facility] ([facility] ID Date Data Source [id number] 04/06/2020 02:49:00 PM EST [facility] ([facility] Name Value Range Interpretation Code Description Data Denise rce(s) Supporting Document(s) Glucose, Fasting 90 mg/dL 70-100 [facility] ([facility] Creatinine For GFR 0.88 mg/dL 0.55-1.30 [facility] ([facility] Glomerular Filtration Rate Laboratory test result [facility] ([facility] <content>Units are mL/min/1.73 m2</content>
<content></content>
<content>Chronic Kidney Disease Staging per NKF:</content>
<content></content>
<content>Stage I & II GFR >=60 Normal to Mildly Decreased</content>
<content>Stage III GFR 30- 59 Moderately Decreased</content>
<content>Stage IV GFR 15-29 Severely Decreased</content>
<content>Stage V GFR <15 Very Little GFR Left</content>
<content>ESRD GFR <15 on RN LVN</content>
<content></content> Blood Urea Nitrogen 7 mg/dL 7-18 [...] [facility] ID Date Data Source [id number] 04/06/2020 02:49:00 PM EST [facility] ([facility] [...] 10 150-450 [facility] ([facility] [place] % 8.6 % 2.0-8.0 [facility] ([facility] [...] 0-0 [facility] ([facility] [place] # 0.8 10 0.0-0.8 [facility] ([facility] [...] Value Range Interpretation Code Description Data Source(s) Systolic blood pressure 130 mm[Hg] 130 mm[Hg] [facility] Diastolic blood pressure 80 mm[Hg] 80 mm[Hg] [facility] ([facility]) Body temperature 97.9 [degF] 97.9 [degF] [facility] ([facility] Body height 61 [in_i] 61 [in_i] [facility] ([facility]) 5'1" Body weight 261.38 [lb_av] 261.38 [lb_av] [facility] ([facility]) Body mass index (BMI) [Ratio] 49.4 kg/m2 49.4 k g/m2 [facility] ([facility]) [place] body weight 105 [lb_av] 105 [lb_av] [facility] ([facility]) Body weight 118.560 kg 118.560 kg [facility] ([facility]) Body surface area Derived from formula 2.12 m2 2.12 m2 [facility] ([facility]) Body surface area Derived from formula 2.23 m2 2.23 m2 [facility] ([facility]) Body height 61 [in_i] 61 [in_i] [facility] ([facility]) 5'1" Systolic blood pressure 126 mm[Hg] 126 mm[Hg] [facility] ([facility]) Diastolic blood pressure 72 mm[Hg] 72 mm[Hg] [facility] ([facility]) Body weight 297.00 [lb_av] 297.00 [lb_av] [facility] ([facility]) Body mass index (BMI) [Ratio] 56.1 kg/m2 56.1 k g/m2 [facility] ([facility]) [place] body weight 105 [lb_av] 105 [lb_av] [facility] ([facility]) Body weight 134.719 kg 134.719 kg [facility] ([facility]) [place] body weight 110 [lb_av] 110 [lb_av] [facility] [...] Body temperature 99.0 [degF] 99.0 [degF] [facility] Respiratory rate 20 /min [...] [lb_av] [facility] ([facility] [place] body weight 110 [lb_av] 110 [lb_av] [facility] [...] [in_i] [facility] ([facility] 5'2.25" [place] body weight 110 [lb_av] 110 [lb_av] [facility] ([facility] Body weight 301.25 [lb_av] 301.25 [lb_av] [facility] ([facility] Oxygen saturation in Arterial blood by Pulse oximetry 98 % 98 % [facility] Body mass index (BMI) [Ratio] 54.7 kg/m2 54.7 k g/m2 [facility]
--- OUTSIDE RECORDS SUMMARY | 2020-12-17 06:51 | CCD | Continuity of Care Document ---
Author Author Virgie GARCES DO Organization Unknown Address [address], [address] [place] [address] Phone [phone] Care Team Providers Care Extra Hand Name Role Phone Taylor Cantu P.A.-C [facility] [phone] Jesus Lagos MD [facility] [phone] [facility] Unavailable Problems Description No Information Available Social History Type Date Description Comments Sex Unknown ETOH Use Denies alcohol use Tobacco Use Start: Unknown Denies Smoking Recreational Drug Use Denies Drug Use Allergies and adverse reactions Active Allergies Criticality Reaction | Severity Comments Date Penicillin V Unable to assess criticality 08/30/2020 Amoxicillin Unable to assess criticality 08/30/2020 Medications Active Medications SIG Qnty Indications Ordering Provide r Date Omeprazole 20mg Tablets DR 1 tab qd as needed Unknown Ondansetron HCL 4mg Tablets 1 tab by mouth every 6 hours as needed Unknown 00 History Medications No Active Medications Unknown - 12/12/2020 Immunizations Description No Information Available Vital Signs Date Vital Result Comment 12/13/2020 3:05pm BP Systolic 130 mmHg BP Diastolic 80 mmHg Body Temperature 97.9 F Height 61 inches 5'1" Weight 261.38 lb BMI (Body Mass Index) 49.4 kg/m2 [place] Body Weight 105 lb Weight 118.560 kg BSA (Body Surface Area) 2.12 m2 09/07/2020 9:34am BP Systolic 126 mmHg BP Diastolic 72 mmHg Height 61 inches 5'1" Weight 297.00 lb BMI (Body Mass Index) 56.1 kg/m2 [place] Body Weight 105 lb Weight 134.719 kg BSA (Body Surface Area) 2.23 m2 Results Description No Information Available Procedures Description No Information Available Medical Devices Description No Information Available Encounters Type Date Location Provider Dx Diagnosis Office Visit 09/07/2020 9:30a [facility] Danielito heart M.D. K35.33 Acute appendicitis with perf and loc per itonitis, with abscs E66.01 Morbid (severe) obesity due to excess calories Z48.89 Encounter for other specifie d surgical aftercare Assessments Date Code Description Provider 09/07/2020 K35.33 Acute appendicitis w ith perforation and localized peritonitis, with abscess Danielito Terry M.D. 09/07/2020 E66.01 Morbid (severe) obesity due to e xcess calories Danielito Terry M.D. 09/07/2020 Z48.89 Encounter for other specified barnes rgical aftercare Danielito Terry M.D. Plan of Treatment 09/07/2020 - Danielito Terry M.D.* K35.33 Acute appendicitis with perforation and [...]
[2020-12-17] MEDS ORDERED: REGL10TA6 PO (06:56)
[2020-12-17] MEDS ORDERED: METOCLOPRAMIDE INJ 10MG/2ML VIAL (J2765 PER 1) IV ONE (08:00)
[2020-12-17] MEDS ORDERED: NS 1,000 ML IV ONE (08:00)
[2020-12-17] MEDS ORDERED: MORPHINE 4 MG/ML 1ML VIAL/SYRINGE (J2270) IV PRN (08:00)
[2020-12-17 08:36] LABS: BASO % 0.7 % (0.0-1.0); EOS % 0.3 % (0.0-3.0); HEMATOCRIT 43.8 % (36.0-47.0); HEMOGLOBIN 14.4 g/dl (12.0-15.5); LYMPH % 16.9 % (24.0-44.0); MEAN CORPUSCULAR HEMOGLOBIN 25.9 pg (27.0-33.0); MEAN CORPUSCULAR HGB CONC 32.9 g/dl (32.0-36.5); MEAN CORPUSCULAR VOLUME 78.9 fl (80.0-96.0); MONO # 0.7 10^3/uL (0.0-0.8); MONO % 11.1 % (2.0-8.0); NEUTROPHILS # 4.3 10^3/uL (1.5-8.5); NEUTROPHILS % 70.8 % (36.0-66.0); PLATELET COUNT, AUTOMATED 243 10^3/uL (150-450); RED BLOOD COUNT 5.55 10^6/uL (4.00-5.40); WHITE BLOOD COUNT 6.1 10^3/uL (4.0-10.0)
--- OUTSIDE RECORDS SUMMARY | 2020-12-17 08:39 | CCD ---
Author Author [facility] Organization [facility] Address Unknown Phone Unavailable Care Team Providers Care Eligibility Specialist Name Role Phone Rakan BEACH MD Unavailable [...] Rakan BEACH MD Unavailable Unavailable Pleskach, Carla MEDICAL BILLING REPRESENTATIVE Unavailable Unavailable Pleskach, Carla MEDICAL BILLING REPRESENTATIVE Unavailable Unavailable Pleskach, Carla MEDICAL BILLING REPRESENTATIVE Unavailable Unavailable Pleskach, Carla MEDICAL BILLING REPRESENTATIVE Unavailable Unavailable Pleskach, Carla MEDICAL BILLING REPRESENTATIVE Unavailable Unavailable Pleskach, Carla MEDICAL BILLING REPRESENTATIVE Unavailable Unavailable Pleskach, Carla MEDICAL BILLING REPRESENTATIVE Unavailable Unavailable Pleskach, Carla MEDICAL BILLING REPRESENTATIVE Unavailable Unavailable Pleskach, Carla MEDICAL BILLING REPRESENTATIVE Unavailable Unavailable Pleskach, Carla MEDICAL BILLING REPRESENTATIVE Unavailable Unavailable Pleskach, Carla MEDICAL BILLING REPRESENTATIVE Unavailable Unavailable Pleskach, Carla MEDICAL BILLING REPRESENTATIVE Unavailable Unavailable Pleskach, Carla MEDICAL BILLING REPRESENTATIVE Unavailable Unavailable Pleskach, Carla MEDICAL BILLING REPRESENTATIVE Unavailable Unavailable Pleskach, Carla MEDICAL BILLING REPRESENTATIVE Unavailable Unavailable Pleskach, Carla MEDICAL BILLING REPRESENTATIVE Unavailable Unavailable Pleskach, Carla MEDICAL BILLING REPRESENTATIVE Unavailable Unavailable Pleskach, Carla MEDICAL BILLING REPRESENTATIVE Unavailable Unavailable Pleskach, Carla MEDICAL BILLING REPRESENTATIVE Unavailable Unavailable Pleskach, Carla MEDICAL BILLING REPRESENTATIVE Unavailable Unavailable Pleskach, Carla MEDICAL BILLING REPRESENTATIVE Unavailable Unavailable Pleskach, Carla MEDICAL BILLING REPRESENTATIVE Unavailable Unavailable Pleskach, Carla MEDICAL BILLING REPRESENTATIVE Unavailable Unavailable Pleskach, Carla MEDICAL BILLING REPRESENTATIVE Unavailable Unavailable Pleskach, Carla MEDICAL BILLING REPRESENTATIVE Unavailable Unavailable Pleskach, Carla MEDICAL BILLING REPRESENTATIVE Unavailable Unavailable Pleskach, Carla MEDICAL BILLING REPRESENTATIVE Unavailable Unavailable Pleskach, Carla MEDICAL BILLING REPRESENTATIVE Unavailable Unavailable Pleskach, Carla MEDICAL BILLING REPRESENTATIVE Unavailable Unavailable Pleskach, Carla MEDICAL BILLING REPRESENTATIVE Unavailable Unavailable Pleskach, Carla MEDICAL BILLING REPRESENTATIVE Unavailable Unavailable Pleskach, Carla MEDICAL BILLING REPRESENTATIVE Unavailable Unavailable Pleskach, Carla MEDICAL BILLING REPRESENTATIVE Unavailable Unavailable Pleskach, Carla MEDICAL BILLING REPRESENTATIVE Unavailable Unavailable Pleskach, Carla MEDICAL BILLING REPRESENTATIVE Unavailable Unavailable Pleskach, Carla MEDICAL BILLING REPRESENTATIVE Unavailable Unavailable Pleskach, Carla MEDICAL BILLING REPRESENTATIVE Unavailable Unavailable Pleskach, Carla MEDICAL BILLING REPRESENTATIVE Unavailable Unavailable Pleskach, Carla MEDICAL BILLING REPRESENTATIVE Unavailable Unavailable Pleskach, Carla MEDICAL BILLING REPRESENTATIVE Unavailable Unavailable Pleskach, Carla MEDICAL BILLING REPRESENTATIVE Unavailable Unavailable Pleskach, Carla MEDICAL BILLING REPRESENTATIVE Unavailable Unavailable Pleskach, Carla MEDICAL BILLING REPRESENTATIVE Unavailable Unavailable Pleskach, Carla MEDICAL BILLING REPRESENTATIVE Unavailable Unavailable Re-disclosure Warning The records that [...] is protected by Article 27-F of the [facility] Public Health law. If you continue you may have access to information: Regarding HIV / AIDS; Provided by facilities licensed or operated by the [facility] Office of Mental Health; or Provided by the [facility] Office for People With Developmental Disabilities. If such information is present, then the following [facility] mandated warning applies: This information has been [...] law may result in a fine or care home sentence or both. A general authorization for the release of medical or other information is NOT sufficient authorization for further disc losure. Encounters Encounter Providers Location Date Indications Data Source(s ) Office Visit Attender: PRICE Tee/Malik/Basilio/Es indl 09/07/2020 09:30:00 AM EDT [facility] ([facility] Outpatient Attender: Carla Ray NUVANCE [...] Medications 09/07/2020 12:00:00 AM EDT completed [facility] ([facility] ) Insurance Providers Payer name Policy type / Coverage type Policy ID Covered alliance party ID Covered alliance party's relationship to banuelos Policy Banuelos Plan Information [facility] [id number] SP [id number] [facility] O [id number] S [id number] [facility] O UNAVAILABLE [id number] P UNAV AILABLE [facility] [id number] P [id number] [facility] - O/P [id number] 01 [id number] [facility] [id number] Problems, Conditions, and Diagnoses No Information Surgeries/Procedures Procedure Description Date Indications Data Source(s) Brief Emotional/Behav Assessment W/ Scoring Doc Per Standard Inst 04/06/2020 12:00:00 AM EST [facility] ([facility] Results ID Date Data Source [id number] 12/07/2020 11:33:00 PM EDT [facility] Name Value Range Interpretation Code Description Data Denise rce(s) Supporting Document(s) SARS coronavirus 2 RNA [Presence] in Res piratory specimen by MALATHI with probe detection NEGATIVE [facility] This lab was ordered by [facility] a nd reported by [facility]. ID Date Data Source [id number] 11/15/2020 11:00:00 AM EDT [facility] Name Value Range Interpretation Code Description Data Denise rce(s) Supporting Document(s) SARS coronavirus 2 RNA Not Detected [facility] This lab was ordered by [facility] [address] and reported by [facility]. ID Date Data Source [id number] 08/28/2020 01:23:00 AM EDT [facility] Name Value Range Interpretation Code Description Data Denise rce(s) Supporting Document(s) SARS coronavirus 2 RNA [Presence] in Res piratory specimen by MALATHI with probe detection NEGATIVE [facility] This lab was ordered by [facility] a nd reported by [facility]. ID Date Data Source [id number] 04/22/2020 12:00:00 AM EST [facility] Noel Giordano Patient Name: TEODORA [id number] Date [facility] : 1990[facility] [place] [address] Date of Exam: [facility]#: Fax: [phone] EXAM: US PELVIC COMPLETECLINICAL INFORMATION: [...] regions. Nogross mass or fluid.Accredited by the [employer] in GynecologicalUltrasound.Td Deleon, ELIAN/Ricco you for referring TRISTAN SALMERON to our office. Electronically Signed - TD DELEON MD 04/22/20 13:06 Name Value Range Interpretation Code Description Data Denise rce(s) Supporting Document(s) ID Date Data Source [id number] 04/22/2020 12:00:[address] [facility] Imaging Noel Giordano Patient Name: TEODORA [id number] Date of : 1990[place] [address] Date of Exam: 04/22/2020#: Fax: [phone] EXAM: [...] regions. Nogross mass or fluid.Accredited by the [employer] in GynecologicalUltrasound.Td Deleon, ELIAN/Ricco you for referring TRISTAN SALMERON to our office. Electronically Signed - TD DELEON MD 04/22/20 13:06 Name Value Range Interpretation Code Description Data Denise rce(s) Supporting Document(s) ID Date Data Source [id number] 04/21/2020 01:53:00 PM EST [facility] ([facility] Name Value Range Interpretation Code Description Data Denise rce(s) Supporting Document(s) Choriogonadotropin.beta subunit ( test) [Pres ence] in Serum or Plasma Laboratory test result [facility] ID Date Data Source [id number] 04/06/2020 02:49:00 PM EST [facility] ([facility] [...] [facility] ID Date Data Source [id number] 04/06/2020 02:49:00 PM EST [facility] ([facility] Name Value Range Interpretation Code Description Data Denise rce(s) Supporting Document(s) Thyroxine (T4) free [Mass/volume] in Serum or Plasma 0.98 ng/dL 0.76- 1.46 [facility] ([facility] Thyrotropin [Units/volume] in Serum or Plasma 1.970 uIU/ML 0.358-3.74 0 [facility] ([facility] ID Date Data Source [id number] 04/06/2020 02:49:00 PM EST [facility] ([facility] Name Value Range Interpretation Code Description Data Denise rce(s) Supporting Document(s) Hemoglobin A1c/Hemoglobin.total in Blood 5.4 % [facility] ([facility] <content>REFERENCE RANGES:</content><br/ ><content></content>
<content><=5.6% NORMAL</content>
<content>5.7-6.4% SUGGESTS IMPAIRED GLUCOSE METABOLISM/PREDIABETIC</content>
<content>>= 6.5% ABNORMAL</content>
<content></content> Estimated Average Glucose 108 mg/dL 60-110 [facility] ([facility] ID Date Data Source [id number] 04/06/2020 02:49:00 PM EST [facility] ([facility] [...] Little GFR Left</content>
<content>ESRD GFR <15 on [employer]ERCING [employer]PER[employer]</content>
<content></content> Blood Urea Nitrogen 7 mg/dL 7-18 [...] [facility] Alt/SGPT 41 U/L 12-78 [facility] ([facility] Bilirubin,Total 0.2 mg/dL 0.2-1.0 [facility] ([facility] Total Protein 7.2 GM/DL 6.4-8.2 [facility] ([facility] Albumin 3.7 GM/DL 3.2-5.2 [facility] ([facility] Albumin/Globulin Ratio 1.1 1.2-2.2 [facility] ([facility] ID Date Data Source [id number] 04/06/2020 02:49:00 PM EST [facility] ([facility] [...] 10 150-450 [facility] ([facility] [place] % 8.6 % 2.0-8.0 [facility] ([facility] d[facility] [...] 0-0 [facility] ([facility] [place] # 0.8 10 0.0-0.8 [facility] ([facility] dukes [...] blood pressure 130 mm[Hg] 130 mm[facility]Hg[facility] Diastolic blood pressure 80 mm[Hg] 80 mm[Hg] [facility] ([facility]) Body temperature 97.9 [degF] 97.9 [degF] [facility] ([facility]) Body height 61 [in_i] 61 [in_i] [facility] ([facility]) 5'1" Body weight 261.38 [lb_av] 261.38 [lb_av] [facility] ([facility]) Body mass index (BMI) [Ratio] 49.4 kg/m2 49.4 k g/m2 [facility] ([facility]) [place] body weight 105 [lb_av] 105 [lb_av] [facility] ([facility]) Body weight 118.560 kg 118.560 kg [facility] ([facility]) Body surface area Derived from formula 2.12 m2 2.12 m2 [facility] ([facility]) Body surface area Derived from formula 2.23 m2 2.23 m2 [facility] ([facility]) Body height 61 [in_i] 61 [in_i] [facility] ([facility]) 5'1" Systolic blood pressure 126 mm[Hg] 126 mm[Hg] [facility] ([facility]) Diastolic blood pressure 72 mm[Hg] 72 mm[Hg] [facility] ([facility]) Body weight 297.00 [lb_av] 297.00 [lb_av] [facility] ([facility]) Body mass index (BMI) [Ratio] 56.1 kg/m2 56.1 k g/m2 [facility] ([facility]) [place] body weight 105 [lb_av] 105 [lb_av] [facility] ([facility]) Body weight 134.719 kg 134.719 kg [facility] ([facility]) [place] body weight 110 [lb_av] 110 [lb_av] [facility] ([facility] Body mass index (BMI) [Ratio] 54.6 kg/m2 54.6 k g/m2 [facility] Oxygen saturation in Arterial blood by Pulse oximetry 97 % 97 % [facility] Systolic [...] [in_i] [facility] ([facility] 5'2.25" Systolic blood pressure 127 mm[Hg] 127 mm[Hg] [facility] ([facility] Oxygen saturation in Arterial blood by Pulse oximetry 98 % 98 % [facility] Respiratory rate 18 [...] [lb_av] [facility] ([facility] [place] body weight 110 [lb_av] 110 [lb_av] [facility] ([facility] Diastolic blood pressure 84 mm[Hg] 84 mm[Hg] [facility] Systolic blood pressure 116 mm[Hg] 116 mm[Hg] [facility] ([facility] Respiratory rate 17 /min 17 /min [facility] ( [facility] [place] body weight 110 [lb_av] 110 [lb_av] [facility] ([facility] Body height 62.25 [...]
[2020-12-17 08:57] LABS: BILIRUBIN,DIRECT 0.5 MG/DL (0.0-0.2); TOTAL PROTEIN 7.5 GM/DL (6.4-8.2)
--- NOTE | 2020-12-17 10:37 | REP ---
INDICATION: pain. COMPARISON: None. TECHNIQUE: Multiple images of the right upper quadrant of the abdomen were obtained. FINDINGS: There is fatty liver infiltration. There is gallbladder sludge without stones evident. The gallbladder wall is normal in thickness measuring 2 mm. Compression over the gallbladder elicits a Capps sign. The common bile duct is normal measuring 4 mm in diameter. The pancreas is obscured by overlying bowel gas. The right kidney measures 12.3 x 6.6 x 5.1 cm. The renal parenchymal echogenicity is normal. There are no focal abnormalities. There is no evidence of hydronephrosis. IMPRESSION: 1. There is right upper quadrant pain elicited with compression, however, there is no evidence of cholelithiasis. There is gallbladder sludge evident and the gallbladder wall is not thickened. 2. There is fatty liver infiltration. <Electronically signed by Luis Noel > 12/17/20 1037
[2020-12-17] MEDS ORDERED: ZOFR4TAB16 PO (11:46)
[2020-12-17] MEDS ORDERED: PROM25SU3 PR (11:47)
== END 2020-12-17 12:49 | disposition home or self-care (01) ==
LOC: M ED 06:39
DX: K80.20 Calculus of gallbladder without cholecystitis without obstruction (principal); K21.9 Gastro-esophageal reflux disease without esophagitis; Z88.0 Allergy status to penicillin; Z79.899 Other long term (current) drug therapy
CPT/HCPCS: 76705; 80047; 80076; 83690; 85025; 96361; 96374; 96375; 99284; J2270; J2765

== ENCOUNTER 2020-12-19 10:02 | Emergency (ER) | payer OTHER ==
[~2020-12-19] VITALS: Ht 152.4 cm; Wt 115.9 kg
[~2020-12-19 10:02] MED LIST changes: +PROM25SU3 PR; +REGL10TA6 PO
--- OUTSIDE RECORDS SUMMARY | 2020-12-19 10:06 | CCD ---
Author Author [facility] Organization [facility] Address Unknown Phone Unavailable Care Team Providers Care Commercial Agent Name Role Phone Rakan BEACH MD Unavailable [...] Rakan BEACH MD Unavailable Unavailable Pleskach, Carla VACUUM TECHNICIAN Unavailable Unavailable Pleskach, Carla VACUUM TECHNICIAN Unavailable Unavailable Pleskach, Carla VACUUM TECHNICIAN Unavailable Unavailable Pleskach, Carla VACUUM TECHNICIAN Unavailable Unavailable Pleskach, Carla VACUUM TECHNICIAN Unavailable Unavailable Pleskach, Carla VACUUM TECHNICIAN Unavailable Unavailable Pleskach, Carla VACUUM TECHNICIAN Unavailable Unavailable Pleskach, Carla VACUUM TECHNICIAN Unavailable Unavailable Pleskach, Carla VACUUM TECHNICIAN Unavailable Unavailable Pleskach, Carla VACUUM TECHNICIAN Unavailable Unavailable Pleskach, Carla VACUUM TECHNICIAN Unavailable Unavailable Pleskach, Carla VACUUM TECHNICIAN Unavailable Unavailable Pleskach, Carla VACUUM TECHNICIAN Unavailable Unavailable Pleskach, Carla VACUUM TECHNICIAN Unavailable Unavailable Pleskach, Carla VACUUM TECHNICIAN Unavailable Unavailable Pleskach, Carla VACUUM TECHNICIAN Unavailable Unavailable Pleskach, Carla VACUUM TECHNICIAN Unavailable Unavailable Pleskach, Carla VACUUM TECHNICIAN Unavailable Unavailable Pleskach, Carla VACUUM TECHNICIAN Unavailable Unavailable Pleskach, Carla VACUUM TECHNICIAN Unavailable Unavailable Pleskach, Carla VACUUM TECHNICIAN Unavailable Unavailable Pleskach, Carla VACUUM TECHNICIAN Unavailable Unavailable Pleskach, Carla VACUUM TECHNICIAN Unavailable Unavailable Pleskach, Carla VACUUM TECHNICIAN Unavailable Unavailable Pleskach, Carla VACUUM TECHNICIAN Unavailable Unavailable Pleskach, Carla VACUUM TECHNICIAN Unavailable Unavailable Pleskach, Carla VACUUM TECHNICIAN Unavailable Unavailable Pleskach, Carla VACUUM TECHNICIAN Unavailable Unavailable Pleskach, Carla VACUUM TECHNICIAN Unavailable Unavailable Pleskach, Carla VACUUM TECHNICIAN Unavailable Unavailable Pleskach, Carla VACUUM TECHNICIAN Unavailable Unavailable Pleskach, Carla VACUUM TECHNICIAN Unavailable Unavailable Pleskach, Carla VACUUM TECHNICIAN Unavailable Unavailable Pleskach, Carla VACUUM TECHNICIAN Unavailable Unavailable Pleskach, Carla VACUUM TECHNICIAN Unavailable Unavailable Pleskach, Carla VACUUM TECHNICIAN Unavailable Unavailable Pleskach, Carla VACUUM TECHNICIAN Unavailable Unavailable Pleskach, Carla VACUUM TECHNICIAN Unavailable Unavailable Pleskach, Carla VACUUM TECHNICIAN Unavailable Unavailable Pleskach, Carla VACUUM TECHNICIAN Unavailable Unavailable Pleskach, Carla VACUUM TECHNICIAN Unavailable Unavailable Pleskach, Carla VACUUM TECHNICIAN Unavailable Unavailable Pleskach, Carla VACUUM TECHNICIAN Unavailable Unavailable Pleskach, Carla VACUUM TECHNICIAN Unavailable Unavailable Re-disclosure Warning The records that [...] is protected by Article 27-F of the [facility] Public Health law. If you continue you may have access to information: Regarding HIV / AIDS; Provided by facilities licensed or operated by the [facility] Office of Mental Health; or Provided by the [facility] Office for People With Developmental Disabilities. If such information is present, then the following [facility] mandated warning applies: This information has [...] law may result in a fine or shelter sentence or both. A general authorization for the release of medical or other information is NOT sufficient authorization for further disc losure. Encounters Encounter Providers Location Date Indications Data Source(s ) Office Visit Attender: PRICE Tee/Malik/Basilio/Es indl 09/07/2020 09:30:00 AM EDT [facility] ([facility] Outpatient Attender: Carla Ray [facility] Main Office 05/02/2020 0 8:15:00 AM EDT [facility] ([facility] Outpatient Attender: Carla Ray [facility] Main Office 04/21/2020 1 2:00:00 PM EST [facility] ([facility] Outpatient Attender: Carla Ray [facility] Main Office 04/06/2020 0 2:00:00 PM EST [facility] ([facility] Medications Medication Brand Name Start Date Product Form Dose Route Admi nistrative Instructions Pharmacy Instructions Status Indications Reaction Description Data Source(s) No Active Medications 09/07/2020 12:00:00 AM EDT completed [facility] ([facility] ) Insurance Providers Payer name Policy type / Coverage type Policy ID Covered constitution party ID Covered constitution party's relationship to banuelos Policy Banuelos Plan Information [facility] [id number] SP [id number] [facility] O [id number] S [id number] [facility] O UNAVAILABLE [id number] P UNAV AILABLE [facility] [facility] O [id number] P [id number] [facility] [employer] - O/P [id number] 01 [id number] [facility] [employer] [facility] [id number] Problems, Conditions, and Diagnoses No Information Surgeries/Procedures Procedure Description Date Indications Data Source(s) Brief Emotional/Behav Assessment W/ Scoring Doc Per Standard Inst 04/06/2020 12:00:00 AM EST [facility] ([facility] Results ID Date Data Source [id number] 12/07/2020 11:33:00 PM EDT [facility] Name Value Range Interpretation Code Description Data Denise rce(s) Supporting Document(s) SARS coronavirus 2 RNA [Presence] in Res piratory specimen by MALATHI with probe detection NEGATIVE [facility] This lab was ordered by [facility] a nd reported by [facility]. ID Date Data Source [id number] 11/15/2020 11:00:00 AM EDT [facility] Name Value Range Interpretation Code Description Data Denise rce(s) Supporting Document(s) SARS coronavirus 2 RNA Not Detected [facility] This lab was ordered by [facility] [address] and reported by [facility]. ID Date Data Source [id number] 08/28/2020 01:23:00 AM EDT [facility] Name Value Range Interpretation Code Description Data Denise rce(s) Supporting Document(s) SARS coronavirus 2 RNA [Presence] in Res piratory specimen by MALATHI with probe detection NEGATIVE [facility] This lab was ordered by [facility] a nd reported by [facility]. ID Date Data Source [id number] 04/22/2020 12:00:00 AM EST [facility] Noel Giordano Patient Name: TEODORA [id number] [facility] 1990[facility] [address] Date [facility] Exam: [facility]#: Fax: [phone] EXAM: US PELVIC COMPLETECLINICAL INFORMATION: [...] regions. Nogross mass or fluid.Accredited by the [employer] in GynecologicalUltrasound.Td Deleon, ELIAN/Ricco you for referring TRISTAN SALMERON to our office. Electronically Signed - TD DELEON MD 04/22/20 13:06 Name Value Range Interpretation Code Description Data Denise rce(s) Supporting Document(s) ID Date Data Source [id number] 04/22/2020 12:00:00 AM EST [facility] Imaging Noel Giordano Patient Name: TEODORA [id number] Date of : 1990[place] [address] Date of Exam: 04/22/2020#: Fax: [phone] EXAM: [...] regions. Nogross mass or fluid.Accredited by the [employer] in GynecologicalUltrasound.Td Deleon, ELIAN/Ricco you for referring TRISTAN SALMERON to our office. Electronically Signed - TD DELEON MD 04/22/20 13:06 Name Value Range Interpretation Code Description Data Denise rce(s) Supporting Document(s) ID Date Data Source [id number] 04/21/2020 01:53:00 PM EST [facility] ([facility] Name Value Range Interpretation Code Description Data Denise rce(s) Supporting Document(s) Choriogonadotropin.beta subunit ( test) [Pres ence] in Serum or Plasma Laboratory test result [facility] ID Date Data Source [id number] 04/06/2020 02:49:00 PM EST [facility] ([facility] [...] [facility] ID Date Data Source [id number] 04/06/2020 02:49:00 PM EST [facility] ([facility] Name Value Range Interpretation Code Description Data Denise rce(s) Supporting Document(s) Thyroxine (T4) free [Mass/volume] in Serum or Plasma 0.98 ng/dL 0.76- 1.46 [facility] ([facility] Thyrotropin [Units/volume] in Serum or Plasma 1.970 uIU/ML 0.358-3.74 0 [facility] ([facility] ID Date Data Source [id number] 04/06/2020 02:49:00 PM EST [facility] ([facility] Name Value Range Interpretation Code Description Data Denise rce(s) Supporting Document(s) Hemoglobin A1c/Hemoglobin.total in Blood 5.4 % [facility] ([facility] <content>REFERENCE RANGES:</content><br/ ><content></content>
<content><=5.6% NORMAL</content>
<content>5.7-6.4% SUGGESTS IMPAIRED GLUCOSE METABOLISM/PREDIABETIC</content>
<content>>= 6.5% ABNORMAL</content>
<content></content> Estimated Average Glucose 108 mg/dL 60-110 [facility] ([facility] ID Date Data Source [id number] 04/06/2020 02:49:00 PM EST [facility] ([facility] [...] Little GFR Left</content>
<content>ESRD GFR <15 on CIRCULATOR</content>
<content></content> Blood Urea Nitrogen 7 mg/dL 7-18 [...] [facility] ID Date Data Source [id number] 04/06/2020 02:49:00 PM EST [facility] ([facility] [...] 10 150-450 [facility] ([facility] [place] % 8.6 % 2.0-8.0 [facility] ([facility] [...] 0-0 [facility] ([facility] [place] # 0.8 10 0.0-0.8 [facility] ([facility] [...] blood pressure 130 mm[Hg] 130 mm[Hg] [facility]) Diastolic blood pressure 80 mm[Hg] 80 mm[Hg] [facility] ([facility]) Body temperature 97.9 [degF] 97.9 [degF] [facility] ([facility]) Body height 61 [in_i] 61 [in_i] [facility] ([facility]) 5'1" Body weight 261.38 [lb_av] 261.38 [lb_av] [facility] ([facility]) Body mass index (BMI) [Ratio] 49.4 kg/m2 49.4 k g/m2 [facility] ([facility]) [place] body weight 105 [lb_av] 105 [lb_av] [facility] ([facility]) Body weight 118.560 kg 118.560 kg [facility] ([facility]) Body surface area Derived from formula 2.12 m2 2.12 m2 [facility] ([facility]) Body height 61 [in_i] 61 [in_i] [facility] ([facility]) 5'1" Body surface area Derived from formula 2.23 m2 2.23 m2 [facility] ([facility]) Systolic blood pressure 126 mm[Hg] 126 mm[Hg] [facility] ([facility]) Diastolic blood pressure 72 mm[Hg] 72 mm[Hg] [facility] ([facility]) Body weight 297.00 [lb_av] 297.00 [lb_av] [facility] ([facility]) Body mass index (BMI) [Ratio] 56.1 kg/m2 56.1 k g/m2 [facility] ([facility]) [place] body weight 105 [lb_av] 105 [lb_av] [facility] ([facility]) Body weight 134.719 kg 134.719 kg [facility] ([facility]) [place] body weight 110 [lb_av] 110 [lb_av] [facility] [...] 97 % [facility] ([facility] Body height 62.25 [in_i] 62.25 [in_i] [facility] ([facility] 5'2.25" Diastolic blood pressure 90 mm[Hg] 90 mm[Hg] [facility] Oxygen saturation [...] [lb_av] [facility] ([facility] [place] body weight 110 [lb_av] 110 [lb_av] [facility] ([facility] [place] body weight 110 [lb_av] 110 [lb_av] [facility] [...]
[2020-12-19 10:38] LABS: BASO # 0.1 10^3/uL (0.0-0.2); BASO % 0.8 % (0.0-1.0); EOS % 0.2 % (0.0-3.0); HEMATOCRIT 41.6 % (36.0-47.0); HEMOGLOBIN 13.8 g/dl (12.0-15.5); LYMPH % 17.4 % (24.0-44.0); MEAN CORPUSCULAR HEMOGLOBIN 26.1 pg (27.0-33.0); MEAN CORPUSCULAR HGB CONC 33.2 g/dl (32.0-36.5); MEAN CORPUSCULAR VOLUME 78.6 fl (80.0-96.0); MONO # 0.8 10^3/uL (0.0-0.8); NEUTROPHILS % 68.3 % (36.0-66.0); PLATELET COUNT, AUTOMATED 234 10^3/uL (150-450); RED BLOOD COUNT 5.29 10^6/uL (4.00-5.40); WHITE BLOOD COUNT 5.9 10^3/uL (4.0-10.0)
[2020-12-19 11:01] LABS: ALBUMIN 3.8 GM/DL (3.2-5.2); ALT/SGPT 302 U/L (12-78); BILIRUBIN,DIRECT 0.6 MG/DL (0.0-0.2); BILIRUBIN,TOTAL 1.2 MG/DL (0.2-1.0); BLOOD UREA NITROGEN 6 MG/DL (7-18); CALCIUM LEVEL 9.7 MG/DL (8.5-10.1); CARBON DIOXIDE LEVEL 25 MEQ/L (21-32); CHLORIDE LEVEL 103 MEQ/L (98-107); CREATININE FOR GFR 0.85 MG/DL (0.55-1.30); GLOMERULAR FILTRATION RATE > 60.0 (>60); GLUCOSE, FASTING 92 MG/DL (70-100); LIPASE 408 U/L (73-393); POTASSIUM SERUM 3.6 MEQ/L (3.5-5.1); SODIUM LEVEL 140 MEQ/L (136-145); TOTAL PROTEIN 7.2 GM/DL (6.4-8.2)
[2020-12-19 11:04] LABS: HCG, SERUM QUALITATIVE NEGATIVE (NEGATIVE)
--- OUTSIDE RECORDS SUMMARY | 2020-12-19 11:22 | CCD ---
Author Author [facility] Organization [facility] Address Unknown Phone Unavailable Care Team Providers Care Licensed Real Estate Broker Name Role Phone Rakan BEACH MD Unavailable Unavailable Rakan BEACH MD Unavailable Unavailable Rakan BEACH MD Unavailable Unavailable Rakan BEACH MD Unavailable Unavailable YONGRakan BRIGGS MD Unavailable Unavailable Rakan BEACH MD Unavailable Unavailable Rakan BEACH MD Unavailable Unavailable Rakan BEACH MD Unavailable Unavailable YOGNRakan BRIGGS MD Unavailable Unavailable YONGRakan BRIGGS MD [...] Rakan BEACH MD Unavailable Unavailable Pleskach, Carla HOUSING RELOCATION Unavailable Unavailable Pleskach, Carla HOUSING RELOCATION Unavailable Unavailable Pleskach, Carla HOUSING RELOCATION Unavailable Unavailable Pleskach, Carla HOUSING RELOCATION Unavailable Unavailable Pleskach, Carla HOUSING RELOCATION Unavailable Unavailable Pleskach, Carla HOUSING RELOCATION Unavailable Unavailable Pleskach, Carla HOUSING RELOCATION Unavailable Unavailable Pleskach, Carla HOUSING RELOCATION Unavailable Unavailable Pleskach, Carla HOUSING RELOCATION Unavailable Unavailable Pleskach, Carla HOUSING RELOCATION Unavailable Unavailable Pleskach, Carla HOUSING RELOCATION Unavailable Unavailable Pleskach, Carla HOUSING RELOCATION Unavailable Unavailable Pleskach, Carla HOUSING RELOCATION Unavailable Unavailable Pleskach, Carla HOUSING RELOCATION Unavailable Unavailable Pleskach, Carla HOUSING RELOCATION Unavailable Unavailable Pleskach, Carla HOUSING RELOCATION Unavailable Unavailable Pleskach, Carla HOUSING RELOCATION Unavailable Unavailable Pleskach, Carla HOUSING RELOCATION Unavailable Unavailable Pleskach, Carla HOUSING RELOCATION Unavailable Unavailable Pleskach, Carla HOUSING RELOCATION Unavailable Unavailable Pleskach, Carla HOUSING RELOCATION Unavailable Unavailable Pleskach, Carla HOUSING RELOCATION Unavailable Unavailable Pleskach, Carla HOUSING RELOCATION Unavailable Unavailable Pleskach, Carla HOUSING RELOCATION Unavailable Unavailable Pleskach, Carla HOUSING RELOCATION Unavailable Unavailable Pleskach, Carla HOUSING RELOCATION Unavailable Unavailable Pleskach, Carla HOUSING RELOCATION Unavailable Unavailable Pleskach, Carla HOUSING RELOCATION Unavailable Unavailable Pleskach, Carla HOUSING RELOCATION Unavailable Unavailable Pleskach, Carla HOUSING RELOCATION Unavailable Unavailable Pleskach, Carla HOUSING RELOCATION Unavailable Unavailable Pleskach, Carla HOUSING RELOCATION Unavailable Unavailable Pleskach, Carla HOUSING RELOCATION Unavailable Unavailable Pleskach, Carla HOUSING RELOCATION Unavailable Unavailable Pleskach, Carla HOUSING RELOCATION Unavailable Unavailable Pleskach, Carla HOUSING RELOCATION Unavailable Unavailable Pleskach, Carla HOUSING RELOCATION Unavailable Unavailable Pleskach, Carla HOUSING RELOCATION Unavailable Unavailable Pleskach, Carla HOUSING RELOCATION Unavailable Unavailable Pleskach, Carla HOUSING RELOCATION Unavailable Unavailable Pleskach, Carla HOUSING RELOCATION Unavailable Unavailable Pleskach, Carla HOUSING RELOCATION Unavailable Unavailable Pleskach, Carla HOUSING RELOCATION Unavailable Unavailable Pleskach, Carla HOUSING RELOCATION Unavailable Unavailable Re-disclosure Warning The records that [...] is protected by Article 27-F of the [facility] Public Health law. If you continue you may have access to information: Regarding HIV / AIDS; Provided by facilities licensed or operated by the [facility] Office of Mental Health; or Provided by the [facility] Office for People With Developmental Disabilities. If such information is present, then the following [facility] mandated warning applies: This information [...] law may result in a fine or fci sentence or both. A general authorization for the release of medical or other information is NOT sufficient authorization for further disc losure. Encounters Encounter Providers Location Date Indications Data Source(s ) Office Visit Attender: PRICE Tee/Malik/Basilio/Es indl 09/07/2020 09:30:00 AM EDT [facility] ([facility] Outpatient Attender: Carla Ray [facility] Main Office 05/02/2020 0 8:15:00 AM EDT [facility] ([facility] Outpatient Attender: Carla Ray [facility] Main Office 04/21/2020 1 2:00:00 PM EST [facility] ([facility] Outpatient Attender: Carla Ray [facility] Main Office 04/06/2020 0 2:00:00 PM EST [facility] ([facility] Medications Medication Brand Name Start Date Product Form Dose Route Admi nistrative Instructions Pharmacy Instructions Status Indications Reaction Description Data Source(s) No Active Medications 09/07/2020 12:00:00 AM EDT completed [facility] ([facility] ) Insurance Providers Payer name Policy type / Coverage type Policy ID Covered republican ID Covered republican's relationship to banuelos Policy Banuelos Plan Information [facility] [id number] SP [id number] [facility] O [id number] S [id number] [facility] O UNAVAILABLE [id number] P UNAV AILABLE [facility] O [id number] P [id number] [facility] - [facility]/P [id number] [id number] [facility] [facility] [id number] Problems, Conditions, and Diagnoses No Information Surgeries/Procedures Procedure Description Date Indications Data Source(s) Brief Emotional/Behav Assessment W/ Scoring Doc Per Standard Inst 04/06/2020 12:00:00 AM EST [facility] ([facility] Results ID Date Data Source [id number] 12/07/2020 11:33:00 PM EDT [facility] Name Value Range Interpretation Code Description Data Denise rce(s) Supporting Document(s) SARS coronavirus 2 RNA [Presence] in Res piratory specimen by MALATHI with probe detection NEGATIVE [facility] This lab was ordered by [facility] a nd reported by [facility]. ID Date Data Source [id number] 11/15/2020 11:00:00 AM EDT [facility] Name Value Range Interpretation Code Description Data Denise rce(s) Supporting Document(s) SARS coronavirus 2 RNA Not Detected [facility] This lab was ordered by [facility] [address] and reported by [facility]. ID Date Data Source [id number] 08/28/2020 01:23:00 AM EDT [facility] Name Value Range Interpretation Code Description Data Denise rce(s) Supporting Document(s) SARS coronavirus 2 RNA [Presence] in Res piratory specimen by MALATHI with probe detection NEGATIVE [facility] This lab was ordered by [facility] a nd reported by [facility]. ID Date Data Source [id number] 04/22/2020 12:00:00 AM EST [facility] Noel Giordano Patient Name: TEODORA [id number] [facility] 1990[facility] [address] Date of Exam: [facility]#: Fax: [phone] EXAM: US PELVIC COMPLETECLINICAL INFORMATION: [...] regions. Nogross mass or fluid.Accredited by the [employer] in GynecologicalUltrasound.Td Deleon, ELIAN/Ricco you for referring TRISTAN SALMERON to our office. Electronically Signed - TD DELEON MD 04/22/20 13:06 Name Value Range Interpretation Code Description Data Denise rce(s) Supporting Document(s) ID Date Data Source [id number] 04/22/2020 12:00:00 AM EST [facility] Noel Giordano Patient Name: TEODORA [id number] Date of : 1990[place] [address] Date of Exam: 04/22/2020#: Fax: [phone] EXAM: [...] regions. Nogross mass or fluid.Accredited by the [employer] in GynecologicalUltrasound.Td Deleon, ELIAN/Ricco you for referring TRISTAN SALMERON to our office. Electronically Signed - TD DELEON MD 04/22/20 13:06 Name Value Range Interpretation Code Description Data Denise rce(s) Supporting Document(s) ID Date Data Source [id number] 04/21/2020 01:53:00 PM EST [facility] ([facility] Name Value Range Interpretation Code Description Data Denise rce(s) Supporting Document(s) Choriogonadotropin.beta subunit ( test) [Pres ence] in Serum or Plasma Laboratory test result [facility] ID Date Data Source [id number] 04/06/2020 02:49:00 PM EST [facility] ([facility] [...] [facility] ID Date Data Source [id number] 04/06/2020 02:49:00 PM EST [facility] ([facility] Name Value Range Interpretation Code Description Data Denise rce(s) Supporting Document(s) Thyroxine (T4) free [Mass/volume] in Serum or Plasma 0.98 ng/dL 0.76- 1.46 [facility] ([facility] Thyrotropin [Units/volume] in Serum or Plasma 1.970 uIU/ML 0.358-3.74 0 [facility] ([facility] ID Date Data Source [id number] 04/06/2020 02:49:00 PM EST [facility] ([facility] Name Value Range Interpretation Code Description Data Denise rce(s) Supporting Document(s) Hemoglobin A1c/Hemoglobin.total in Blood 5.4 % [facility] ([facility] <content>REFERENCE RANGES:</content><br/ ><content></content>
<content><=5.6% NORMAL</content>
<content>5.7-6.4% SUGGESTS IMPAIRED GLUCOSE METABOLISM/PREDIABETIC</content>
<content>>= 6.5% ABNORMAL</content>
<content></content> Estimated Average Glucose 108 mg/dL 60-110 [facility] ID Date Data Source [id number] 04/06/2020 02:49:00 PM EST [facility] ([facility] [...] Little GFR Left</content>
<content>ESRD GFR <15 on ANIMAL WARDEN</content>
<content></content> Blood Urea Nitrogen 7 mg/dL 7-18 [...] [facility] ID Date Data Source [id number] 04/06/2020 02:49:00 PM EST [facility] ([facility] [...] 10 150-450 [facility] ([facility] [place] % 8.6 % 2.0-8.0 [facility] ([facility] [...] 0-0 [facility] ([facility] [place] # 0.8 10 0.0-0.8 [facility] ([facility] [...] blood pressure 130 mm[Hg] 130 mm[Hg] [facility] Diastolic blood pressure 80 mm[Hg] 80 mm[Hg] [facility] ([facility]) Body temperature 97.9 [degF] 97.9 [degF] [facility] ([facility]) Body height 61 [in_i] 61 [in_i] [facility] ([facility]) 5'1" Body weight 261.38 [lb_av] 261.38 [lb_av] [facility] ([facility]) Body mass index (BMI) [Ratio] 49.4 kg/m2 49.4 k g/m2 [facility] ([facility]) [place] body weight 105 [lb_av] 105 [lb_av] [facility] ([facility]) Body weight 118.560 kg 118.560 kg [facility] ([facility]) Body surface area Derived from formula 2.12 m2 2.12 m2 [facility] ([facility]) Body surface area Derived from formula 2.23 m2 2.23 m2 [facility] ([facility]) Body height 61 [in_i] 61 [in_i] [facility] ([facility]) 5'1" Systolic blood pressure 126 mm[Hg] 126 mm[Hg] [facility] ([facility]) Diastolic blood pressure 72 mm[Hg] 72 mm[Hg] [facility] ([facility]) Body weight 297.00 [lb_av] 297.00 [lb_av] [facility] ([facility]) Body mass index (BMI) [Ratio] 56.1 kg/m2 56.1 k g/m2 [facility] ([facility]) [place] body weight 105 [lb_av] 105 [lb_av] [facility] ([facility]) Body weight 134.719 kg 134.719 kg [facility] ([facility]) [place] body weight 110 [lb_av] 110 [lb_av] [facility] [...] mm[Hg] M [facility] ([facility] Heart rate 105 /min 105 /min [facility] ([facility] Body temperature 97.6 [degF] 97.6 [degF] [facility] Body weight 302.38 [lb_av] 302.38 [lb_av] [facility] ([facility] [place] body weight 110 [lb_av] 110 [lb_av] [facility] ([facility] [place] body weight 110 [lb_av] 110 [lb_av] [facility] Diastolic blood pressure 84 mm[Hg] 84 mm[Hg] [facility] Body [...] /min [facility] ( [facility] Heart rate 100 /min 100 /min [facility] Body temperature 98.3 [degF] 98.3 [degF] [facility]
[2020-12-19] MEDS ORDERED: ONDANSETRON 4MG/2ML VIAL IV ONE (12:10)
[2020-12-19] MEDS ORDERED: KETOROLAC 30 MG/ML 1ML VIAL IV ONE (12:10)
[2020-12-19] MEDS ORDERED: HYDR-3713 PO (13:49)
[2020-12-19 14:00] VITALS: BP 137/77
== END 2020-12-19 14:41 | disposition home or self-care (01) ==
LOC: M ED 10:02
DX: K80.20 Calculus of gallbladder without cholecystitis without obstruction (principal); Z88.0 Allergy status to penicillin
CPT/HCPCS: 80048; 80076; 83690; 84703; 85025; 96374; 96375; 99284; J1885; J2405

== ENCOUNTER 2020-12-22 15:39 | Inpatient (IN) | payer OTHER ==
[~2020-12-22] VITALS: Ht 152.4 cm; Wt 115.9 kg
[~2020-12-22 15:39] MED LIST changes: +HYDR-3713 PO
[2020-12-22] MEDS ORDERED: NS 1,000 ML IV ONE (16:20)
[2020-12-22] MEDS ORDERED: ONDANSETRON 4MG/2ML VIAL IV ONE (16:35)
[2020-12-22 16:42] LABS: BASO % 0.6 % (0.0-1.0); EOS % 0.2 % (0.0-3.0); HEMATOCRIT 43.1 % (36.0-47.0); HEMOGLOBIN 14.3 g/dl (12.0-15.5); LYMPH # 1.4 10^3/uL (1.5-5.0); MEAN CORPUSCULAR HGB CONC 33.2 g/dl (32.0-36.5); MEAN CORPUSCULAR VOLUME 78.4 fl (80.0-96.0); MONO # 0.8 10^3/uL (0.0-0.8); MONO % 11.8 % (2.0-8.0); NEUTROPHILS # 4.1 10^3/uL (1.5-8.5); NEUTROPHILS % 65.1 % (36.0-66.0); PLATELET COUNT, AUTOMATED 230 10^3/uL (150-450); WHITE BLOOD COUNT 6.4 10^3/uL (4.0-10.0)
[2020-12-22 17:09] LABS: ALBUMIN 3.9 GM/DL (3.2-5.2); ALT/SGPT 345 U/L (12-78); BILIRUBIN,DIRECT 0.6 MG/DL (0.0-0.2); BILIRUBIN,TOTAL 1.3 MG/DL (0.2-1.0); BLOOD UREA NITROGEN 8 MG/DL (7-18); CALCIUM LEVEL 9.8 MG/DL (8.5-10.1); CARBON DIOXIDE LEVEL 25 MEQ/L (21-32); CHLORIDE LEVEL 102 MEQ/L (98-107); CK-MB VALUE MASS < 1.0 NG/ML (<3.6); CPK CREATINE PHOSPHOKINASE 112 U/L (26-192); CREATININE FOR GFR 0.73 MG/DL (0.55-1.30); GLOMERULAR FILTRATION RATE > 60.0 (>60); GLUCOSE, FASTING 82 MG/DL (70-100); LIPASE 405 U/L (73-393); MB/CK RELATIVE INDEX 0.89 (< OR =4); POTASSIUM SERUM 3.8 MEQ/L (3.5-5.1); SODIUM LEVEL 140 MEQ/L (136-145); TOTAL PROTEIN 7.3 GM/DL (6.4-8.2); TROPONIN I < 0.02 NG/ML (< 0.10)
[2020-12-22 17:17] LABS: HCG, SERUM QUALITATIVE NEGATIVE (NEGATIVE)
--- NOTE | 2020-12-22 17:47 | REPVR ---
PROCEDURE INFORMATION: Exam: CT Head Without Contrast Exam date and time: 12/22/2020 4:19 PM Age: 30 years old Clinical indication: Dizziness; Additional info: Hypertension, dizzy TECHNIQUE: Imaging protocol: Computed tomography of the head without contrast. Radiation optimization: All CT scans at this facility use at least one of these dose optimization techniques: automated exposure control; mA and/or kV adjustment per patient size (includes targeted exams where dose is matched to clinical indication); or iterative reconstruction. COMPARISON: No relevant prior studies available. FINDINGS: Brain: No hemorrhage. Unremarkable white matter for the patient's age. No mass effect. No evolving territorial infarct. Cerebral ventricles: No ventriculomegaly. Paranasal sinuses: Visualized sinuses are unremarkable. No fluid levels. Mastoid air cells: Visualized mastoid air cells are well aerated. Bones/joints: Unremarkable. No acute fracture. Soft tissues: Unremarkable. IMPRESSION: No acute intracranial abnormality seen. Electronically signed by: Judy Celestin On 12/22/2020 17:47:13 PM
[2020-12-22] MEDS ORDERED: ISOVUE-370 76% 100ML VIAL As Ordered ONE (18:26)
[2020-12-22] MEDS: GASTROGRAFIN SOLUTION 30ML PO SCH ×2 (18:33→18:45)
--- NOTE | 2020-12-22 19:20 | REPVR ---
PROCEDURE INFORMATION: Exam: CT Abdomen And Pelvis With Contrast Exam date and time: 12/22/2020 6:40 PM Age: 30 years old Clinical indication: Abdominal pain; Additional info: Gen abd pain elevated lipase TECHNIQUE: Imaging protocol: Computed tomography of the abdomen and pelvis with contrast. Radiation optimization: All CT scans at this facility use at least one of these dose optimization techniques: automated exposure control; mA and/or kV adjustment per patient size (includes targeted exams where dose is matched to clinical indication); or iterative reconstruction. Contrast material: ISOVUE 370; Contrast volume: 100 ml; Contrast route: INTRAVENOUS (IV); COMPARISON: 1. MRI ABDOMEN WITHOUT CONTRAST 12/07/2020 10:[address] ABD/PEL W/IV ORAL CONTRAS 12/07/2020 7:36:56 PM FINDINGS: Liver: The liver appears more hypodense than usual consistent with fatty change. There is focal fat adjacent to the falciform ligament. Gallbladder and bile ducts: Gallstones are again demonstrated. No ductal dilation. Pancreas: No imaging evidence of pancreatitis. Spleen: Upper normal spleen size. Adrenal glands: Normal. No mass. Kidneys and ureters: Normal. No hydronephrosis. Stomach and bowel: Prior partial gastrectomy. There is colonic diverticulosis without evidence of diverticulitis. No evidence of bowel obstruction. No bowel wall mucosal thickening. Appendix: A normal appendix is seen. Intraperitoneal space: Unremarkable. No free air. No significant fluid collection. Vasculature: Unremarkable. The portal venous system appears patent. Lymph nodes: Unremarkable. No pathologically enlarged lymph nodes. Urinary bladder: Unremarkable as visualized. Reproductive: Right ovarian cyst is no longer seen. Bones/joints: No acute fracture. Soft tissues: Unremarkable. IMPRESSION: No acute findings identified. Electronically signed by: Judy Celestin On 12/22/2020 19:20:41 PM
[2020-12-22] MEDS ORDERED: GI COCKTAIL 50ML BTL(HYOSCYAMINE/MAALOX/LIDOCAINE VISCOUS)(1:3:1) PO ONE (19:45)
[2020-12-22] MEDS ORDERED: PANTOPRAZOLE 40MG VIAL (C9113 PER 1) IV ONE (19:45)
[2020-12-22] MEDS ORDERED: ONDA-83 PO (19:49)
[2020-12-22] MEDS ORDERED: HOME MED LIST COMPLETE! XX SCH (19:50)
[2020-12-22] MEDS ORDERED: MOM 30ML SUSPENSION UDC PO PRN (20:40)
[2020-12-22] MEDS ORDERED: MORPHINE 2 MG/ML 1ML VIAL (J2270) IV PRN (20:40)
--- NOTE | 2020-12-22 21:04 | HPEPDOC ---
[facility] Medical History & Physical Date of Admission Dec 22, 2020 Date of Service: Dec 22, 2020 History and Physical CHIEF COMPLAINT: Nausea and vomiting HISTORY OF PRESENT ILLNESS: 30-year-old female history of obesity and recent gastric sleeve surgery early in [place] presents with ongoing nausea and vomiting and a poor appetite and oral intake since her surgery. There is also constant abdominal discomfort since her surgery that goes away when she sleeps and comes back when she's awake. She says she's been having difficulty getting follow up appointments outpatient because theyre too far out. She has associated dizziness when she thinks is form not being able to eat. Does not have a PCP. PAST MEDICAL/SURGICAL HISTORY: Obesity 2 C-sections Appendectomy Gastric sleeve surgery 11/22/2020 SOCIAL HISTORY: Denies alcohol use Denies tobacco use Denies illicit drug use FAMILY HISTORY: Reviewed and none contributory to this admission ALLERGIES: Please see below. REVIEW OF SYSTEMS: 10 point review of systems complete all negative otherwise stated in HPI HOME MEDICATIONS: Please see below. PHYSICAL EXAMINATION: Constitutional: Awake and alert, in no apparent distress, obese, appears comfortable sitting up in bed. ENT: Sclera are clear. Mucosa is dry Respiratory: Lungs CTA bilaterally. No respiratory distress. No use of accessory muscles. Cardiovascular: RRR S1 and S2 are normal Gastrointestinal: Abdomen is soft, non distended, none tender to palpation, BS present. obese abdomen. Musculoskeletal: No lower extremity edema. Neurologic: No focal neurological deficit. Mental Status: A&O x3, normal affect Skin: Warm, dry LABORATORY DATA: See below. IMAGING: See chart MICROBIOLOGY: Please see below. ASSESSMENT/PLAN 30-year-old female history of obesity and recent gastric sleeve surgery presents with nausea and vomiting ongoing since her surgery. # Nausea/Vomiting: ongoing for 1 month now. IV fluids. IV Reglan PRN. Advance diet as tolerated. Pain control IV morphine. Needs good followup. If doesn't improve enough to be discharged and follow up outpatient, may need surgical consult whilst admitted. # Elevated lipase: has been the same ~400 since last admission. Likely reactive/inflammatory component # Recent gastric sleeve: Needs good follow-up at time of discharge with surgery and PCP # Class 3 Obesity: Complicates care. BMI 49.9 # DVT prophylaxis: Heparin A Yousef Hospitalist Vital Signs Vital Signs Date Time Temp Pulse Resp B/P (MAP) Pulse Ox O2 Delivery O2 Flow Rate FiO2 12/22/20 20:09 160/106 (124) 12/22/20 19:45 123 12/22/20 19:30 97 12/22/20 16:00 98.7 18 Room Air Laboratory Data Labs 24H Laboratory Tests 2 12/22/20 16:23: Immature Granulocyte % (Auto) 0.3, Neutrophils (%) (Auto) 65.1, Lymphocytes (%) (Auto) 22.0L, Monocytes (%) (Auto) 11.8H, Eosinophils (%) (Auto) 0.2, Basophils (%) (Auto) 0.6, Neutrophils # (Auto) 4.1, Lymphocytes # (Auto) 1.4L, Monocytes # (Auto) 0.8, Eosinophils # (Auto) 0.0, Basophils # (Auto) 0.0, Nucleated Red Blood Cells % (auto) 0.0, Anion Gap 13, Glomerular Filtration Rate > 60.0, Calcium Level 9.8, Total Bilirubin 1.3H, Direct Bilirubin 0.6H, Aspartate Amino Transf (AST/SGOT) 124H, Alanine Aminotransferase (ALT/SGPT) 345H, Alkaline Phosphatase 126H, Total Creatine Kinase 112, Creatine Kinase MB < 1.0, Creatine Kinase MB Relative Index 0.89, Troponin I < 0.02, Total Protein 7.3, Albumin 3.9, Albumin/Globulin Ratio 1.1L, Lipase 405H, Human Chorionic Gonadotropin, Qual NEGATIVE CBC/BMP Laboratory Tests 12/22/20 16:23 Home Medications Scheduled PRN Omeprazole (Omeprazole) 20 Mg Capsule.dr, 20 MG PO DAILY PRN for HEARTBURN/INDIGESTION Ondansetron HCl (Ondansetron HCl) 4 Mg Tablet, 4 MG PO TID PRN for NAUSEA OR VOMITING Allergies Coded Allergies: Penicillins (Verified Allergy, Unknown, hives, throat closes up, 08/28/20) amoxicillin (Verified Allergy, Unknown, urticaria, respiratory depression, 02/22/19) ARIEL SCOTT MD Dec 22, 2020 21:04
[2020-12-22 21:50] LABS: RSV AMPLIFICATION NEGATIVE (NEGATIVE)
[2020-12-22 22:30] VITALS: BP 156/84
[2020-12-22] MEDS: DOCUSATE SODIUM 100MG CAPSULE PO SCH (23:00)
[2020-12-22] MEDS: METOCLOPRAMIDE INJ 10MG/2ML VIAL (J2765 PER 1) IV PRN (23:01)
[2020-12-22] MEDS: NS 1,000 ML IV SCH (23:01)
[2020-12-23] MEDS: NS 1,000 ML IV SCH (05:12)
[2020-12-23] MEDS: METOCLOPRAMIDE INJ 10MG/2ML VIAL (J2765 PER 1) IV PRN ×2 (05:12→11:43)
[2020-12-23 06:00] VITALS: BP 156/82
[2020-12-23 06:13] LABS: HEMATOCRIT 35.5 % (36.0-47.0); MEAN CORPUSCULAR HEMOGLOBIN 26.6 pg (27.0-33.0); MEAN CORPUSCULAR HGB CONC 33.5 g/dl (32.0-36.5); MEAN CORPUSCULAR VOLUME 79.2 fl (80.0-96.0); PLATELET COUNT, AUTOMATED 175 10^3/uL (150-450); RED BLOOD COUNT 4.48 10^6/uL (4.00-5.40); WHITE BLOOD COUNT 4.2 10^3/uL (4.0-10.0)
[2020-12-23 06:25] LABS: HEMOGLOBIN 11.9 g/dl (12.0-15.5)
[2020-12-23 06:40] LABS: ALBUMIN 3.1 GM/DL (3.2-5.2); ALT/SGPT 254 U/L (12-78); BILIRUBIN,TOTAL 1.1 MG/DL (0.2-1.0); BLOOD UREA NITROGEN 6 MG/DL (7-18); CALCIUM LEVEL 8.3 MG/DL (8.5-10.1); CARBON DIOXIDE LEVEL 24 MEQ/L (21-32); CHLORIDE LEVEL 106 MEQ/L (98-107); CREATININE FOR GFR 0.62 MG/DL (0.55-1.30); GLOMERULAR FILTRATION RATE > 60.0 (>60); GLUCOSE, FASTING 76 MG/DL (70-100); MAGNESIUM LEVEL 1.7 MG/DL (1.8-2.4); POTASSIUM SERUM 3.1 MEQ/L (3.5-5.1); SODIUM LEVEL 143 MEQ/L (136-145); TOTAL PROTEIN 5.9 GM/DL (6.4-8.2)
[2020-12-23] MEDS: ENOXAPARIN 40MG/0.4ML SYRINGE (J1650 PER 10MG) SC SCH (07:59)
[2020-12-23] MEDS: DOCUSATE SODIUM 100MG CAPSULE PO SCH ×2 (07:59→20:39)
[2020-12-23] MEDS ORDERED: KCL 10MEQ/100ML SWI (KRUN) 10 MEQ in IV 1 EA IV SCH (09:00)
[2020-12-23 10:00] VITALS: BP 150/93
[2020-12-23] MEDS ORDERED: E-Z-PAQUE 96% w/w SUSP 176GM BTL As Ordered ONE (10:02)
[2020-12-23] MEDS ORDERED: E-Z-HD 98% w/w 340GM SUSP BTL As Ordered ONE (10:03)
--- NOTE | 2020-12-23 11:41 | REP ---
INDICATION: post-surgical. COMPARISON: None. FINDINGS: KUB shows the intestinal gas pattern to be nonspecific. The organ silhouettes insofar as delineated are unremarkable. There is no evidence of free intraperitoneal air. IMPRESSION: Nonspecific. <Electronically signed by Frandy Martino > 12/23/20 [id number]
[2020-12-23] MEDS: PANTOPRAZOLE 40MG VIAL (C9113 PER 1) IV SCH ×2 (11:43→20:39)
[2020-12-23] MEDS: KCL 20MEQ IN 0.45NS 1000ML 1,000 ML IV SCH ×3 (11:43→23:40)
--- NOTE | 2020-12-23 11:52 | REP ---
INDICATION: CHEESE COOK FOR ESOPHOGRAM. COMPARISON: 02/22/2019 TECHNIQUE: Frontal view FINDINGS: The cardiomediastinal silhouette is within normal limits. Lung agrawal are clear. The pleural angles are sharp the osseous structures are within normal limits IMPRESSION: No acute cardiopulmonary disease <Electronically signed by Frandy Martino > 12/23/20 [id number]
[2020-12-23 14:00] VITALS: BP 144/92
--- NOTE | 2020-12-23 14:41 | IPNPDOC ---
Date Seen The patient was seen on 12/23/20. Progress Note SUBJECTIVE: Persistent nausea without vomiting since admission. Pain in the right upper quadrant still present. Discussed the case at length with both Dr. Sofia and Dr. Osman. Upper GI with esophagram cancelled as patient could not tolerate. GI to see later today. She denies chest pain, shortness of breath, diarrhea, fevers or chills. OBJECTIVE: PHYSICAL EXAMINATION: Constitutional: Awake and alert, appears uncomfortable, sitting up in bed ENT: Sclera are clear. Mucosa is dry Respiratory: Lungs CTA bilaterally. No respiratory distress. No use of accessory muscles. Cardiovascular: RRR S1 and S2 are normal Gastrointestinal: obese, multiple healed incisions on abdomen wall, soft, non - distended, + Capps's sign, BS present. obese abdomen. Musculoskeletal: No lower extremity edema. Neurologic: No focal neurological deficit. Mental Status: A&O x3, normal affect Skin: Warm, dry LABORATORY DATA: See below. IMAGING: CT abd/pelvis: No acute findings identified. CXR: No acute CP findings CT head: No acute intracranial findings. MICROBIOLOGY: None ASSESSMENT: 30-year-old female history of obesity and recent gastric sleeve surgery presents with nausea and vomiting ongoing since her surgery. PLAN: # Nausea/vomiting, chronic possibly 2/2 to gallstones vs. not following diet s/p gastric sleeve, cannot r/o stricture as cause either -Occurring since gastric sleeve done in [place] 11/2020 -Has been following up with Dr. Sofia for possible elective cholecystectomy as o/p. Discussed with him and CT does not appear to be concerning for emergency cause to remove gallbladder. He is also not completely convinced that this is what is causing the n/v in this patient. D/w Dr. Osman (GI) who said scope may be needed to r/o stricture. -F/u GI recommendations after consult -CLD, IV fluids, reglan, zofran, pain control, PPI BID #Hypokalemia likely 2/2 to vomiting, decreased PO intake -K 3.1 -Patient states cannot tolerate pills, liquid or IV options -Will start on 20 mEq KCL/D5 IVFs -Daily labs. # Elevated lipase -Has remained elevated since prior admission. -CT not showing gallstone pancreatitis, but she has prior admission for this -C/w treatment above -F/u GI consult # Recent gastric sleeve -Has no PCP but was seen by surgery on last admission, followed up once in [facility] -States to be compliant with clear liquid diet -Unsure if she plans on following up with surgery who performed surgery in [place] # Class 3 Obesity -Complicates care. BMI 49.9 -F/u with PCP at discharge. # DVT prophylaxis -Heparin DISPOSITION: Admitted under observation status. If needing to stay longer than tomorrow will make inpatient status. GI consulted to see. VS, I&O, 24H, Fishbone Vital Signs/I&O Vital Signs Date Time Temp Pulse Resp B/P (MAP) Pulse Ox O2 Delivery O2 Flow Rate FiO2 12/23/20 14:01 20 Room Air 12/23/20 10:00 98.7 69 150/93 (112) 98 I&O- Last 24 Hours up to 6 AM 12/23/20 06:00 Intake Total 1720 ml Output Total 0 ml Balance 1720 ml Laboratory Data 24H LABS Laboratory Tests 2 12/22/20 16:23: Immature Granulocyte % (Auto) 0.3, Neutrophils (%) (Auto) 65.1, Lymphocytes (%) (Auto) 22.0L, Monocytes (%) (Auto) 11.8H, Eosinophils (%) (Auto) 0.2, Basophils (%) (Auto) 0.6, Neutrophils # (Auto) 4.1, Lymphocytes # (Auto) 1.4L, Monocytes # (Auto) 0.8, Eosinophils # (Auto) 0.0, Basophils # (Auto) 0.0, Nucleated Red Blood Cells % (auto) 0.0, Anion Gap 13, Glomerular Filtration Rate > 60.0, Calcium Level 9.8, Total Bilirubin 1.3H, Direct Bilirubin 0.6H, Aspartate Amino Transf (AST/SGOT) 124H, Alanine Aminotransferase (ALT/SGPT) 345H, Alkaline Phosphatase 126H, Total Creatine Kinase 112, Creatine Kinase MB < 1.0, Creatine Kinase MB Relative Index 0.89, Troponin I < 0.02, Total Protein 7.3, Albumin 3.9, Albumin/Globulin Ratio 1.1L, Lipase 405H, Human Chorionic Gonadotropin, Qual NEGATIVE 12/22/20 20:21: Coronavirus (COVID-19)(PCR) NEGATIVE, Influenza Type A (RT-PCR) NEGATIVE, Influenza Type B (RT-PCR) NEGATIVE, Respiratory Syncytial Virus (PCR) NEGATIVE 12/23/20 05:41: Nucleated Red Blood Cells % (auto) 0.0 12/23/20 05:42: Anion Gap 13, Glomerular Filtration Rate > 60.0, Calcium Level 8.3#L, Total Bilirubin 1.1H, Aspartate Amino Transf (AST/SGOT) 70H, Alanine Aminotransferase (ALT/SGPT) 254H, Alkaline Phosphatase 98, Total Protein 5.9L, Albumin 3.1#L, Albumin/Globulin Ratio 1.1L, Magnesium Level 1.7L CBC/BMP Laboratory Tests 12/22/20 16:23 12/23/20 05:41 12/23/20 05:42 Elizabeth Angel MD Dec 23, 2020 14:41
--- NOTE | 2020-12-23 15:55 | CR.PDOC ---
General Date of Consultation: Dec 23, 2020 Referring Provider: Elizabeth Angel MD Attending Physician: GENNY CUEVA MD Consultation Referring physician / PCP : Dr. Stanley Johnson Reason for consult: Persistent abdominal pain and nausea and vomiting. HPI: 30-year-old female patient with obesity and recent gastric sleeve surgery ( done in [place], in first week of November) presented to ER for persistent episodes of nausea and vomiting and poor oral intake. GI was consulted for the same. Patient reports having some atypical abdominal discomfort symptoms even before surgery and was told about possible gallstone related issues ( patient describes upper abdominal burning sensation and some nausea which is only sometimes associated post prandial)). Patient says after the surgery she had a leak test done which was normal and did follow the dietary regimen recommended by them. She felt completely normal for around 2 weeks and then she started having a bout of severe nausea and vomiting and upper abdominal pain, burning and some radiation to back and towards the chest. She came to ER and was diagnosed with acute biliary pancreatitis ( based on the abdominal pain and elevated lipase ( No CT evidence of pancreatitis). Patient subsequently had one more ER visit with atypical pain and nausea and vomiting,which was treated conservatively. Patient reports she continued to have nausea and vomiting and she could not tolerate any food since then. Patient reports currently she does not have the previous abdominal pain but is having right and left upper abdominal pain, mostly related to retching and muscle pain. She reports she could not even tolerate liquid diet and is vomiting continuously. She denies any blood in vomits and denies any recent use of NSAIDs. Pertinent negative GI symptoms: Patient denies diarrhea, loss of appetite, early satiety or unintentional weight loss, hematemesis, melena or hematochezia. Patient reports regular bowel movements. Review of Systems: GI: as stated above CVS: No chest pain, No palpitations, No leg swelling RS: No Shortness of breath, No Wheezing BUSH REGENERATOR: No loss of consciousness, No focal motor weakness., Hematology: No easy bruising, No gum bleeding, Musculoskeletal: No joint pain, ambulating well. : No blood inurine, No burning sensation of the urine ENT: No ear discharge/ pain, No dysphagia. Eyes: No photophobia. Skin: No rash Home medications: reviewed. No Plavix and No anticoagulants Medical h/o: As above. Surgical h/o: None on abdomen. Social h/o: Denies Alcohol, smoking, IVDA/ drugs. Family h/o of GI cancers - None Prior Endoscopies: None in [facility]. Prior GI evaluation: None in [facility] Exam: Vitals: reviewed General: Alert and oriented x 3, not in acute distress HEENT: No pallor, no icterus. Normal oropharynx, NO cervical lymphadenopathy. Chest: symmetric with bilateral air entry, CVS: S1, S2 heard, Abdomen: non-distended, soft, non-tender, no rigidity or guarding, no palpable masses, normal bowel sounds heard. Rectal exam: Patient refused / Deferred at this time in view of scheduled colonoscopy. Extremities: pulses palpable, no pedal edema, BUSH REGENERATOR: no focal motor or sensory deficits. Moves all extremities Skin: no rash. Labs: reviewed. HCV screening indicated ordered / done OR Not indicated due to age. Imaging: none / reviewed. Impression: -- Persistent nausea and vomiting and poor tolerance to oral intake including fluids, not responding to oral medications, and prior suspected Biliary pancreatitis and recent imaging showing normal CBD and cholelithiasis and normal pancreas. Recent Gastric sleeve surgery in [place], no reports available. DDx -- gastric stenosis vs PUD vs H. pylori infection vs Gastroenteritis vs Symptomatic gallstone disease vs dietary non-compliance. -- Mild elevated Lipase levels -- with no typical pain and normal CT scan of pancreas - likely salivary lipase. Recommendations: -- Patient educated about the prior test results and all questions answered. -- NPO for now or clear liquid diet if tolerated.. -- IV hydration -- prefer ringers lactate. -- Zofran PRN -- Pantoprazole 40 mg -- IV twice daily for now. -- Follow surgery recommendations for cholelithiasis and prior Biliary pancreatitis. -- Will schedule for EGD for further evaluation. -- Patient educated about the procedure(s), indications, risks (including but not limited to bleeding, infection, perforation, anesthesia risks, including ), benefits and all alternatives including conservative measures without intervention. Patient verbalized understanding and consented for the proc edure(s). -- Please follow operative note for post procedure recommendations. -- Plan of care educated to patient and patient verbalized understanding and agreed. All questions answered. -- Recommendations communicated to primary team. Patient to follow with PCP upon discharge for routine medical care. Vital Signs/I&O Vital Signs Date Time Temp Pulse Resp B/P (MAP) Pulse Ox O2 Delivery O2 Flow Rate FiO2 12/23/20 14:11 18 Room Air 12/23/20 14:00 97.9 66 144/92 (109) 98 I&O- Last 24 Hours up to 6 AM 12/23/20 06:00 Intake Total 1720 ml Output Total 0 ml Balance 1720 ml Laboratory Data Labs 24H Laboratory Tests 2 12/22/20 16:23: Immature Granulocyte % (Auto) 0.3, Neutrophils (%) (Auto) 65.1, Lymphocytes (%) (Auto) 22.0L, Monocytes (%) (Auto) 11.8H, Eosinophils (%) (Auto) 0.2, Basophils (%) (Auto) 0.6, Neutrophils # (Auto) 4.1, Lymphocytes # (Auto) 1.4L, Monocytes # (Auto) 0.8, Eosinophils # (Auto) 0.0, Basophils # (Auto) 0.0, Nucleated Red Blood Cells % (auto) 0.0, Anion Gap 13, Glomerular Filtration Rate > 60.0, Calcium Level 9.8, Total Bilirubin 1.3H, Direct Bilirubin 0.6H, Aspartate Amino Transf (AST/SGOT) 124H, Alanine Aminotransferase (ALT/SGPT) 345H, Alkaline Phosphatase 126H, Total Creatine Kinase 112, Creatine Kinase MB < 1.0, Creatine Kinase MB Relative Index 0.89, Troponin I < 0.02, Total Protein 7.3, Albumin 3.9, Albumin/Globulin Ratio 1.1L, Lipase 405H, Human Chorionic Gonadotropin, Qual NEGATIVE 12/22/20 20:21: Coronavirus (COVID-19)(PCR) NEGATIVE, Influenza Type A (RT-PCR) NEGATIVE, Inf luenza Type B (RT-PCR) NEGATIVE, Respiratory Syncytial Virus (PCR) NEGATIVE 12/23/20 05:41: Nucleated Red Blood Cells % (auto) 0.0 12/23/20 05:42: Anion Gap 13, Glomerular Filtration Rate > 60.0, Calcium Level 8.3#L, Total Bilirubin 1.1H, Aspartate Amino Transf (AST/SGOT) 70H, Alanine Aminotransferase (ALT/SGPT) 254H, Alkaline Phosphatase 98, Total Protein 5.9L, Albumin 3.1#L, Albumin/Globulin Ratio 1.1L, Magnesium Level 1.7L CBC/BMP Laboratory Tests 12/22/20 16:23 12/23/20 05:41 12/23/20 05:42 Allergies Coded Allergies: Penicillins (Verified Allergy, Unknown, hives, throat closes up, 08/28/20) amoxicillin (Verified Allergy, Unknown, urticaria, respiratory depression, 02/22/19) Home Medications Scheduled Multivit,Calc,Mins/Iron/Folic ([facility] Daily Multiple Tablet) 1 Each Tablet, 1 TAB PO DAILY for 30 Days, #30 Pantoprazole Sodium (Pantoprazole Sodium) 40 Mg Tablet.dr, 40 MG PO BID for 30 Days, #60 Sucralfate (Sucralfate) 1 Gm/10 Ml Oral.susp, 10 ML PO QID for 30 Days, #1 Scheduled PRN Meclizine HCl (Meclizine HCl) 25 Mg Tablet, 25 MG PO Q4HP PRN for DIZZINESS for 30 Days, #180 Ondansetron HCl (Ondansetron HCl) 4 Mg Tablet, 4 MG PO TID PRN for NAUSEA OR VOMITING, (Reported) GENNY CUEVA MD Dec 23, 2020 15:55
[2020-12-23] MEDS: ONDANSETRON 4MG/2ML VIAL IV SCH ×2 (16:29→20:39)
--- NOTE | 2020-12-23 20:44 | ECGEPIP ---
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
[2020-12-23 22:00] VITALS: BP 143/90
[2020-12-24] MEDS: ONDANSETRON 4MG/2ML VIAL IV SCH ×4 (03:31→21:09)
[2020-12-24 06:00] VITALS: BP 143/92
[2020-12-24 06:46] LABS: HEMATOCRIT 35.7 % (36.0-47.0); HEMOGLOBIN 11.9 g/dl (12.0-15.5); MEAN CORPUSCULAR HEMOGLOBIN 26.1 pg (27.0-33.0); MEAN CORPUSCULAR HGB CONC 33.3 g/dl (32.0-36.5); MEAN CORPUSCULAR VOLUME 78.3 fl (80.0-96.0); PLATELET COUNT, AUTOMATED 158 10^3/uL (150-450); RED BLOOD COUNT 4.56 10^6/uL (4.00-5.40); WHITE BLOOD COUNT 4.8 10^3/uL (4.0-10.0)
[2020-12-24 07:16] LABS: ALBUMIN 3.1 GM/DL (3.2-5.2); ALT/SGPT 210 U/L (12-78); BLOOD UREA NITROGEN 2 MG/DL (7-18); CALCIUM LEVEL 8.4 MG/DL (8.5-10.1); CARBON DIOXIDE LEVEL 24 MEQ/L (21-32); CHLORIDE LEVEL 103 MEQ/L (98-107); CREATININE FOR GFR 0.48 MG/DL (0.55-1.30); GLOMERULAR FILTRATION RATE > 60.0 (>60); GLUCOSE, FASTING 75 MG/DL (70-100); POTASSIUM SERUM 3.4 MEQ/L (3.5-5.1); SODIUM LEVEL 139 MEQ/L (136-145)
[2020-12-24] MEDS ORDERED: propofoL 200 MG/20 ML VIAL As Ordered ONE (07:54)
[2020-12-24] MEDS ORDERED: MIDAZOLAM INJ 2MG/2ML VIAL (J2250 PER 1MG) As Ordered ONE (07:54)
[2020-12-24] MEDS ORDERED: LIDOCAINE 2% 100MG/5ML SDV (FOR ANES.) As Ordered ONE (07:54)
[2020-12-24] MEDS ORDERED: fentaNYL 100 MCG/2 ML INJECTION (J3010) As Ordered ONE (07:55)
[2020-12-24] MEDS ORDERED: ROCURONIUM BROMIDE 50 MG/5 ML VIAL As Ordered ONE (08:07)
[2020-12-24] MEDS ORDERED: SUCCINYLCHOLINE 100 MG/5 ML SYRINGE (J0330) As Ordered ONE (08:18)
[2020-12-24] MEDS ORDERED: ONDANSETRON 4MG/2ML VIAL As Ordered ONE (08:20)
[2020-12-24] MEDS ORDERED: METOCLOPRAMIDE INJ 10MG/2ML VIAL (J2765 PER 1) As Ordered ONE (08:20)
[2020-12-24] MEDS ORDERED: dexameTHASONE 4 MG/ML 1ML VIAL (J1100 PER 1MG) As Ordered ONE (08:27)
[2020-12-24] MEDS: MIRALAX *UNIT DOSE* 17GM PACKET PO SCH ×2 (09:00→20:22)
[2020-12-24] MEDS ORDERED: LR 1,000 ML IV SCH (09:05)
[2020-12-24] MEDS ORDERED: ONDANSETRON 4MG/2ML VIAL IV PRN (09:05)
[2020-12-24] MEDS ORDERED: fentaNYL 100 MCG/2 ML INJECTION (J3010) IV PRN (09:05)
--- NOTE | 2020-12-24 09:08 | ROOR ---
Patient Name: Virgie Franklin Procedure Date: 12/24/2020 6:46 AM Date of : 1990 Age: 30 Room: Main OR Gender: Female Note Status: Finalized Procedure: Upper GI endoscopy Indications: Nausea with vomiting, Persistent vomiting Providers: Fidel Osman MD Referring MD: 3. Emergency Dept 3. Emergency Dept Requesting Provider: Medicines: Monitored Anesthesia Care Complications: No immediate complications. Procedure: Pre-Anesthesia Assessment: - Prior to the procedure, a History and Physical was performed, and patient medications and allergies were reviewed. The patient is competent. The risks and benefits of the procedure and the sedation options and risks were discussed with the patient. All questions were answered and informed consent was obtained. Patient identification and proposed procedure were verified by the physician, the nurse and the anesthesiologist in the procedure room. Mental Status Examination: alert and oriented. Airway Examination: normal oropharyngeal airway and neck mobility. Respiratory Examination: clear to auscultation. CV Examination: normal. Prophylactic Antibiotics: The patient does not require prophylactic antibiotics. Prior Anticoagulants: The patient has taken no previous anticoagulant or antiplatelet agents. ASA Grade Assessment: III - A patient with severe systemic disease. After reviewing the risks and benefits, the patient was deemed in satisfactory condition to undergo the procedure. The anesthesia plan was to use monitored anesthesia care (MAC). Immediately prior to administration of medications, the patient was re-assessed for adequacy to receive sedatives. The heart rate, respiratory rate, oxygen saturations, blood pressure, adequacy of pulmonary ventilation, and response to care were monitored throughout the procedure. The physical status of the patient was re-assessed after the procedure. The Endoscope was introduced through the mouth, and advanced to the second part of duodenum. The upper GI endoscopy was accomplished without difficulty. The patient tolerated the procedure well. Findings: The examined esophagus was normal. The Z-line was regular and was found 36 cm from the incisors. Evidence of a sleeve gastrectomy was found in the cardia, in the gastric fundus, in the gastric body and in the gastric antrum. This was characterized by congestion, erythema, an intact appearance, severe stenosis and stenosis 1 cm (inner diameter) x 0.2 cm (length). A TTS dilator was passed through the scope. Dilation with an 18-19-20 mm balloon dilator was performed to 18 mm. The dilation site was examined following endoscope reinsertion and showed moderate improvement in luminal narrowing and no bleeding, mucosal tear or perforation. Scattered mild inflammation characterized by erosions and granularity was found in the prepyloric region of the stomach. Biopsies were taken with a cold forceps for Helicobacter pylori testing. Verification of patient identification for the specimen was done by the physician and nurse using the patient's name, date and medical record number. Estimated blood loss was minimal. The duodenal bulb and second portion of the duodenum were normal. Impression: - Normal esophagus. - Z-line regular, 36 cm from the incisors. - A sleeve gastrectomy was found, characterized by an intact appearance, congestion, erythema, stenosis and severe stenosis. Dilated. - Gastritis. Biopsied. - Normal duodenal bulb and second portion of the duodenum. Recommendation: - Patient has a contact number available for emergencies. The signs and symptoms of potential delayed complications were discussed with the patient. Return to normal activities tomorrow. Written discharge instructions were provided to the patient. - NPO for 1 day, then advance as tolerated to clear liquid diet for 1 week. - Advance diet as tolerated after 1- 2 weeks to post gastric surgery diet -- very small meals, frequent meals, soft to pudding consistency foods, Low fat, high protein and high fiber diet. - Await pathology results. - If Biopsy shows H. pylori will need therapy with antibiotic course.. - Use Protonix (pantoprazole) 40 mg PO twice daily - to be taken in morning (1/2 hour before breakfast) and at bedtime ( atleast 3 hours after last meal) for 8 weeks. - Use sucralfate suspension 1 gram PO QID for 4 weeks. - Return to GI clinic in [facility] (address: [address] [place] [address], [address] [place] [address], [place], [place],[address]) in 4 -- 6 weeks. Please call GI clinic @ [phone] for apppointment date and time. - Refer to a surgeon as previously scheduled. - Return to primary care physician. Procedure Code(s): --- Professional --- 57110, Esophagogastroduodenoscopy, flexible, transoral; with dilation of gastric/duodenal stricture(s) (eg, balloon, bougie) 16459, 59, Esophagogastroduodenoscopy, flexible, transoral; with biopsy, single or multiple Diagnosis Code(s): --- Professional --- Z98.84, Bariatric surgery status K29.70, Gastritis, unspecified, without bleeding R11.2, Nausea with vomiting, unspecified R11.15, Cyclical vomiting syndrome unrelated to migraine CPT copyright 2019 [employer]. All rights reserved. The codes documented in this report are preliminary and upon non destructive testing engineer review may be revised to meet current compliance requirements. Attending Participation: I personally performed the entire procedure. Fidel Osman MD Fidel Osman MD 12/24/2020 9:08:09 AM Electronically signed by Fidel Osman MD Number of Addenda: 0 Note Initiated On: 12/24/2020 6:46 AM Estimated Blood Loss: Estimated blood loss: none.
[2020-12-24 09:40] VITALS: BP 155/100
[2020-12-24 09:54] VITALS: BP 144/90
[2020-12-24] MEDS: KCL 20MEQ IN 0.45NS 1000ML 1,000 ML IV SCH ×2 (10:24→20:22)
[2020-12-24] MEDS: PANTOPRAZOLE 40MG VIAL (C9113 PER 1) IV SCH ×2 (10:25→20:22)
[2020-12-24] MEDS: ENOXAPARIN 40MG/0.4ML SYRINGE (J1650 PER 10MG) SC SCH (10:33)
[2020-12-24] MEDS: SUCRALFATE SUSP 1GM/10ML UD PO SCH ×3 (12:00→23:01)
[2020-12-24 14:00] VITALS: BP 147/102
[2020-12-24 14:54] VITALS: BP 142/98
--- NOTE | 2020-12-24 16:25 | IPNPDOC ---
Date Seen The patient was seen on 12/24/20. Progress Note SUBJECTIVE: EGD done today showing congestion, stenosis and severe stenosis in the area with a gastric sleeve was. Areas of gastritis were biopsied. Discussed results in detail with GI. Postoperatively the patient denies chest pain, shortness of breath, diarrhea, fevers or chills but has right upper quadrant pain. OBJECTIVE: PHYSICAL EXAMINATION: Constitutional: Lethargic postoperatively, appears uncomfortable, sitting up in bed ENT: Sclera are clear. Mucosa is dry Respiratory: Lungs CTA bilaterally. No respiratory distress. No use of accessory muscles. Cardiovascular: RRR S1 and S2 are normal Gastrointestinal: obese, multiple healed incisions on abdomen wall, soft, non -distended, abdominal pain on palpation of right upper quadrant, slightly more tender then 12/23/2020, BS present. obese abdomen. Musculoskeletal: No lower extremity edema. Neurologic: No focal neurological deficit. Mental Status: A&O x3, normal affect Skin: Warm, dry LABORATORY DATA: See below. IMAGING: EGD 12/24/2020: See report on chart CT abd/pelvis: No acute findings identified. CXR: No acute CP findings CT head: No acute intracranial findings. MICROBIOLOGY: None ASSESSMENT: 30-year-old female history of obesity and recent gastric sleeve surgery presents with nausea and vomiting ongoing since surgery. PLAN: # Persistent nausea/vomiting likely 2/2 to gastric/duodenal strictures s/p gastric sleeve, gastritis -S/p Esophagogastroduodenoscopy (EGD) with dilation (balloon and bougie) of gastric/duodenal strictures 12/24/20 -Occurring since gastric sleeve done in [place] 11/2020 -Has been following up with Dr. Sofia for possible elective cholecystectomy as o/p. Discussed with him and CT does not appear to be concerning for emergency cause to remove gallbladder. -GI (Dr. Osman) recommendations post-op: NPO for 1 day, then advance as tolerated to clear liquid diet for 1 week. Advance diet as tolerated after 1- 2 weeks to post gastric surgery diet -- very small meals, frequent meals, soft to pudding consistency foods, Low fat, high protein and high fiber diet. -Await pathology results. If Biopsy shows H. pylori will need therapy with antibiotic course. -C/w PPI 40 mg PO twice daily, sucralfate suspension 1 gram PO QID for 4 weeks, anushka luis, pain control, #Hypokalemia likely 2/2 to vomiting, decreased PO intake -K improving with fluids with potassium -Patient states cannot tolerate pills, liquid or IV options -C/w 20 mEq KCL/D5 IVFs -Daily labs. # Elevated lipase, hx of gallstone pancreatitis -Has remained elevated since prior admission. -CT not showing gallstone pancreatitis, but she has prior admission for this -C/w treatment above -GI has seen # Recent gastric sleeve -Has no PCP but was seen by surgery on last admission, followed up once in [facility] -States to be compliant with clear liquid diet -F/u with surgery as already scheduled after d/c # Class 3 Obesity -Complicates care. BMI 49.9 -F/u with PCP at discharge. #GI px -PPI BID # DVT prophylaxis -Heparin DISPOSITION: Changed to inpatient status today. Plan is d/c home when medically improved. VS, I&O, 24H, Fishbone Vital Signs/I&O Vital Signs Date Time Temp Pulse Resp B/P (MAP) Pulse Ox O2 Delivery O2 Flow Rate FiO2 12/24/20 14:00 97.6 71 18 147/102 (117) 100 12/24/20 09:30 Room Air I&O- Last 24 Hours up to 6 AM 12/24/20 06:00 Intake Total 1300 ml Output Total 1400 ml Balance -100 ml Laboratory Data 24H LABS Laboratory Tests 2 12/24/20 06:21: Nucleated Red Blood Cells % (auto) 0.0, Anion Gap 12, Glomerular Filtration Rate > 60.0, Calcium Level 8.4L, Total Bilirubin 1.0, Aspartate Amino Transf (AST/SGOT) 61H, Alanine Aminotransferase (ALT/SGPT) 210H, Alkaline Phosphatase 93, Total Protein 6.0L, Albumin 3.1L, Albumin/Globulin Ratio 1.1L CBC/BMP Laboratory Tests 12/24/20 06:21 Elizabeth Angel MD Dec 24, 2020 16:25
[2020-12-24 22:00] VITALS: BP 130/88
[2020-12-25] VITALS (8 sets, daily range): BP systolic 110–133; BP diastolic 68–90; O2SAT 96–97
[2020-12-25] MEDS ORDERED: PROCHLORPERAZINE 10MG/2ML VIAL (J0780 PER 1) IV ONE (01:30)
[2020-12-25] MEDS: KCL 20MEQ IN D5/0.45NS 1000ML 1,000 ML IV SCH ×3 (02:05→20:51)
[2020-12-25 02:18] LABS: HEMATOCRIT 37.1 % (36.0-47.0); HEMOGLOBIN 12.6 g/dl (12.0-15.5); MEAN CORPUSCULAR HEMOGLOBIN 26.4 pg (27.0-33.0); MEAN CORPUSCULAR VOLUME 77.8 fl (80.0-96.0); PLATELET COUNT, AUTOMATED 166 10^3/uL (150-450); RED BLOOD COUNT 4.77 10^6/uL (4.00-5.40); WHITE BLOOD COUNT 4.3 10^3/uL (4.0-10.0)
[2020-12-25 02:19] LABS: HEMATOCRIT 36.9 % (36.0-47.0); HEMOGLOBIN 12.6 g/dl (12.0-15.5); MEAN CORPUSCULAR HEMOGLOBIN 26.5 pg (27.0-33.0); MEAN CORPUSCULAR HGB CONC 34.1 g/dl (32.0-36.5); MEAN CORPUSCULAR VOLUME 77.7 fl (80.0-96.0); PLATELET COUNT, AUTOMATED 163 10^3/uL (150-450); RED BLOOD COUNT 4.75 10^6/uL (4.00-5.40); WHITE BLOOD COUNT 4.5 10^3/uL (4.0-10.0)
--- NOTE | 2020-12-25 02:31 | IPNPDOC ---
Text Note Date of Service The patient was seen on 12/25/20. NOTE Pt seen after stating "room spinning heart racing". VS 97F, hr 77, rr18, 118/80. spo2 97%RA. Pt appears pale, diaphoretic, begins to vomited green 50ml into emesis bag upon arrival to room. EKG completed, NSR qtc 428. Compazine x1 as pt already received zofran schedule. She has been having reported dizziness since admission, CT head nonacute. She denies hearing loss but does endorse tinnitus. She also endorses increased dizziness if she moves too quickly or turns head during exam. When asking pt to follow fingers she closes eyes. She actually does not try to look towards speaker and focuses on wall straight ahead. From the limited exam she would do EOMS intact, and appears possible + nystagmus pendular however may be pt trying to redirect gaze herself. Pt also moving legs, she reports BLE cramping. She denies sinus pressure or ear discomfort. No otoscope at bedside. CTA, RRR, Abdomen not exquisitely tender- she reports some tenderness RUQ and reports same as has been, +BS She unfortunately has several episodes of dry heaving but then begins to relax. She does not endorse improvement in sensation of dizziness/nausea post emesis. Pt does endorse photophobia and headache by end of exam. No focal deficits. She reports the symptoms feel similar to before "with a gallbladder attack". In setting of awakening with nausea and emesis event - some of her symptoms can be explained by the frequent n/v. However, given palpitations, dizziness, tinnitus, possible nystagmus, cramping and low K, concern for low mag with her predisposition for deficiencies with gastric bypass. Last mag was 1.7, 48 hrs ago. Will obtain AM labs now. Pt post compazine re examined at bedside and when asked if any improvement she reports "well not throwing up at least". Pt is receiving IV hydration; given no intake planned today for bowel rest, will add dextrose and monitor. Of note, Pt has been reportedly refusing medications of carafate etc. She also is anxious affect and "wants to sleep". Will consider ativan x1 for benefit of nausea, anxiety (with parameters for BP); however do not want to exacerbate dizziness. Consider differential/ electrolyte repletion as needed. VS,Madi, I+O VS, Fishbone, I+O Laboratory Tests 12/24/20 06:21 Vital Signs Date Time Temp Pulse Resp B/P (MAP) Pulse Ox O2 Delivery O2 Flow Rate FiO2 12/25/20 01:05 97.0 77 18 118/80 (93) 97 Room Air I&O- Last 24 Hours up to 6 AM 12/25/20 06:00 Intake Total 420 ml Output Total 2450 ml Balance -2030 ml CLAIRE TOBIN B[employer] MANAGER Dec 25, 2020 01:55
[2020-12-25 03:25] LABS: ALBUMIN 3.5 GM/DL (3.2-5.2); ALT/SGPT 263 U/L (12-78); ALT/SGPT 267 U/L (12-78); AMYLASE 70 U/L (25-115); BILIRUBIN,TOTAL 1.4 MG/DL (0.2-1.0); BLOOD UREA NITROGEN 2 MG/DL (7-18); CALCIUM LEVEL 9.2 MG/DL (8.5-10.1); CALCIUM LEVEL 9.3 MG/DL (8.5-10.1); CARBON DIOXIDE LEVEL 19 MEQ/L (21-32); CHLORIDE LEVEL 101 MEQ/L (98-107); CREATININE FOR GFR 0.61 MG/DL (0.55-1.30); CREATININE FOR GFR 0.62 MG/DL (0.55-1.30); GLOMERULAR FILTRATION RATE > 60.0 (>60); GLUCOSE, FASTING 82 MG/DL (70-100); LIPASE 405 U/L (73-393); MAGNESIUM LEVEL 1.7 MG/DL (1.8-2.4); POTASSIUM SERUM 3.5 MEQ/L (3.5-5.1); SODIUM LEVEL 138 MEQ/L (136-145); TOTAL PROTEIN 6.6 GM/DL (6.4-8.2); TOTAL PROTEIN 6.7 GM/DL (6.4-8.2)
[2020-12-25] MEDS ORDERED: MAG SULF 1GM/100ML (MAG RUN) 1 GM in IV 1 EA IV ONE ×2 (03:30→07:55)
[2020-12-25] MEDS: ONDANSETRON 4MG/2ML VIAL IV SCH ×2 (05:13→08:28)
[2020-12-25] MEDS: SUCRALFATE SUSP 1GM/10ML UD PO SCH (05:13)
[2020-12-25] MEDS ORDERED: LORazepam 0.5 MG TAB PO PRN (08:00)
[2020-12-25] MEDS: PANTOPRAZOLE 40MG VIAL (C9113 PER 1) IV SCH ×2 (08:27→20:51)
[2020-12-25] MEDS: ENOXAPARIN 40MG/0.4ML SYRINGE (J1650 PER 10MG) SC SCH (08:27)
[2020-12-25] MEDS: MIRALAX *UNIT DOSE* 17GM PACKET PO SCH ×2 (09:00→20:51)
--- NOTE | 2020-12-25 09:08 | REP ---
INDICATION: freq emesis, monitoring for aspiration. COMPARISON: 12/23/2020, 02/22/2019 TECHNIQUE: AP portable seated FINDINGS: The lung agrawal are are only marginally adequate in the degree of inflation. There is no visible infiltrate, atelectasis, effusion or mass. The heart, mediastinal hilar contours are normal for this degree of inflation. Bones unremarkable. No free air under the diaphragm. IMPRESSION: 1. Negative AP portable chest. The exam is somewhat hypoinflated but otherwise unremarkable. <Electronically signed by Td Deleon > 12/25/20 0904
[2020-12-25] MEDS ORDERED: LORazepam 2 MG/ML VIAL IV PRN (09:15)
[2020-12-25 10:32] LABS: BLOOD UREA NITROGEN 3 MG/DL (7-18); CALCIUM LEVEL 8.8 MG/DL (8.5-10.1); CARBON DIOXIDE LEVEL 23 MEQ/L (21-32); CHLORIDE LEVEL 102 MEQ/L (98-107); CREATININE FOR GFR 0.63 MG/DL (0.55-1.30); GLOMERULAR FILTRATION RATE > 60.0 (>60); GLUCOSE, FASTING 133 MG/DL (70-100); MAGNESIUM LEVEL 1.8 MG/DL (1.8-2.4); PHOSPHORUS LEVEL 2.9 MG/DL (2.5-4.9); POTASSIUM SERUM 3.1 MEQ/L (3.5-5.1); SODIUM LEVEL 136 MEQ/L (136-145)
[2020-12-25] MEDS: MECLIZINE 25 MG TABLET PO PRN ×2 (10:34→16:29)
[2020-12-25] MEDS: SUCRALFATE 1 GM TAB PO SCH ×3 (12:00→18:00)
--- NOTE | 2020-12-25 12:02 | ECGEPIP ---
[facility] Test Date: 2020-12-25 Pat Name: TRISTAN SALMERON Department: Room: [place] [address] Gender: Female [employer]: ignacia bucio : 1990 Requested By: CLAIRE Canela Order Number: [id number] Reading MD: Lester Stoddard Measurements Intervals [place] Rate: 81 P: 16 IL: 126 QRS: 18 QRSD: 78 T: 16 QT: 378 QTc: 439 Interpretive Statements Normal sinus rhythm Poor R-wave progression Cannot rule out old Anterior infarct Nonspecific ST-T abnormalities No significant change compared with 12/22/20. Electronically Signed on 12-25-2020 12:01:40 EST by Lester Stoddard
[2020-12-25] MEDS: PROMETHAZINE INJ 25 MG/ML VIAL (J2550) IV PRN ×2 (13:07→21:07)
--- NOTE | 2020-12-25 16:24 | IPNPDOC ---
Date Seen The patient was seen on 12/25/20. Progress Note SUBJECTIVE: Increased dizziness, n/v, unable to keep down medications overnight. Started on phenergan IV in addition to zofran at increased dose to alternate between. Added ativan IV PRN for increased anxiety. Calmed down some with improvement of dizziness for a period of time with meclizine today- encouraging PO meds. Advancing to CLD today. She denies chest pain, shortness of breath, diarrhea, fevers or chills but has right upper quadrant pain. OBJECTIVE: PHYSICAL EXAMINATION: Constitutional: Uncomfortable vomitting, appears exhausted, sitting up in bed ENT: Sclera are clear. Mucosa is dry Respiratory: Lungs CTA bilaterally. No respiratory distress. No use of accessory muscles. Cardiovascular: RRR S1 and S2 are normal Gastrointestinal: obese, multiple healed incisions on abdomen wall, soft, non - distended, abdominal pain on palpation of right upper quadrant, slightly more t derrick then 12/23/2020, BS present. obese abdomen. Musculoskeletal: No lower extremity edema. Neurologic: No focal neurological deficit. Mental Status: A&O x3, normal affect Skin: Warm, dry LABORATORY DATA: See below. IMAGING: EGD 12/24/2020: See report on chart CT abd/pelvis: No acute findings identified. CXR: No acute CP findings CT head: No acute intracranial findings. MICROBIOLOGY: None ASSESSMENT: 30-year-old female history of obesity and recent gastric sleeve surgery presents with nausea and vomiting ongoing since surgery. PLAN: # Gastric/duodenal strictures s/p gastric sleeve, gastritis -One cause of n/v in this patient, occurring since gastric sleeve done in [place] 11/2020. -States she has been compliant with diet as outpatient. -S/p Esophagogastroduodenoscopy (EGD) with dilation (balloon and bougie) of gastric/duodenal strictures 12/24/20 -Has been following up with Dr. Sofia for possible elective cholecystectomy as o/p. Discussed with him and CT does not appear to be concerning for emergency cause to remove gallbladder. -GI (Dr. Osman) recommendations post-op: NPO for 1 day, then advance as tolerated to clear liquid diet for 1 week- starting today. Advance diet as tolerated after 1- 2 weeks to post gastric surgery diet -- very small meals, frequent meals, soft to pudding consistency foods, Low fat, high protein and high fiber diet. -Await pathology results. If Biopsy shows H. pylori will need therapy with antibiotic course. -C/w PPI 40 mg PO twice daily, sucralfate suspension 1 gram PO QID for 4 weeks, phenergan, zofran #Cyclical vomiting syndrome 2/2 to vertigo with dizziness -Nystagmus on exam, room spinning around her -Started on meclizine today, helps when taken -Ordered vestibular rehab -Meclizine PRN, phenergan and zofran PRN, PPI, IVFs #Hypokalemia likely 2/2 to vomiting, decreased PO intake -K improving with fluids with potassium -Patient states cannot tolerate pills, liquid or IV options -C/w 20 mEq KCL/D5 IVFs -Daily labs. #Hypomagnesemia 2/2 to vomiting -mag run x 1 -F/u mag in AM. # Elevated lipase, hx of gallstone pancreatitis -Has remained elevated since prior admission. -CT not showing gallstone pancreatitis, but she has prior admission for this -C/w treatment above -GI has seen # Recent gastric sleeve -Has no PCP but was seen by surgery on last admission, followed up once in community -States to be compliant with clear liquid diet -F/u with surgery as already scheduled after d/c # Class 3 Obesity -Complicates care. BMI 49.9 -F/u with PCP at discharge. #GI px -PPI BID # DVT prophylaxis -Heparin DISPOSITION: Inpatient status. PT ordered for vestibular rehab eval, nutrition consulted to see per GI. Plan is d/c home when medically improved. VS, I&O, 24H, Fishbone Vital Signs/I&O Vital Signs Date Time Temp Pulse Resp B/P (MAP) Pulse Ox O2 Delivery O2 Flow Rate FiO2 12/25/20 14:00 97.7 57 18 129/90 (103) 97 Room Air I&O- Last 24 Hours up to 6 AM 12/25/20 06:00 Intake Total 1620 ml Output Total 2900 ml Balance -1280 ml Laboratory Data 24H LABS Laboratory Tests 2 12/25/20 02:04: Nucleated Red Blood Cells % (auto) 0.0, Anion Gap 18H, Glomerular Filtration Rate > 60.0, Calcium Level 9.2, Magnesium Level 1.7L, Total Bilirubin 1.4H, Aspartate Amino Transf (AST/SGOT) 113H, Alanine Aminotransferase (ALT/SGPT) 263H, Alkaline Phosphatase 110, Total Protein 6.7, Albumin 3.5, Albumin/Globulin Ratio 1.1L, Amylase Level 70, Lipase 405H 12/25/20 09:58: Anion Gap 11, Glomerular Filtration Rate > 60.0, Calcium Level 8.8, Magnesium Level 1.8, Phosphorus Level 2.9 CBC/BMP Laboratory Tests 12/25/20 02:04 12/25/20 09:58 Elizabeth Angel MD Dec 25, 2020 16:24
[2020-12-25] MEDS: ONDANSETRON 4MG/2ML VIAL IV PRN (17:59)
[2020-12-25] MEDS ORDERED: LORazepam 2 MG/ML VIAL As Ordered ONE (22:21)
[2020-12-26] MEDS: ONDANSETRON 4MG/2ML VIAL IV PRN ×2 (00:13→21:21)
[2020-12-26] MEDS: SUCRALFATE 1 GM TAB PO SCH ×4 (05:25→17:05)
[2020-12-26 06:00] VITALS: BP 141/76
[2020-12-26 06:26] LABS: HEMATOCRIT 37.3 % (36.0-47.0); HEMOGLOBIN 12.3 g/dl (12.0-15.5); MEAN CORPUSCULAR HEMOGLOBIN 25.8 pg (27.0-33.0); MEAN CORPUSCULAR VOLUME 78.2 fl (80.0-96.0); PLATELET COUNT, AUTOMATED 165 10^3/uL (150-450); RED BLOOD COUNT 4.77 10^6/uL (4.00-5.40); WHITE BLOOD COUNT 4.2 10^3/uL (4.0-10.0)
[2020-12-26 06:53] LABS: ALBUMIN 3.3 GM/DL (3.2-5.2); ALT/SGPT 451 U/L (12-78); BILIRUBIN,TOTAL 1.6 MG/DL (0.2-1.0); BLOOD UREA NITROGEN 1 MG/DL (7-18); CALCIUM LEVEL 8.9 MG/DL (8.5-10.1); CARBON DIOXIDE LEVEL 26 MEQ/L (21-32); CHLORIDE LEVEL 107 MEQ/L (98-107); CREATININE FOR GFR 0.72 MG/DL (0.55-1.30); GLOMERULAR FILTRATION RATE > 60.0 (>60); GLUCOSE, FASTING 110 MG/DL (70-100); MAGNESIUM LEVEL 1.9 MG/DL (1.8-2.4); POTASSIUM SERUM 3.3 MEQ/L (3.5-5.1); SODIUM LEVEL 141 MEQ/L (136-145); TOTAL PROTEIN 6.2 GM/DL (6.4-8.2)
[2020-12-26] MEDS: KCL 20MEQ IN D5/0.45NS 1000ML 1,000 ML IV SCH ×2 (08:32→15:38)
[2020-12-26] MEDS: PANTOPRAZOLE 40MG VIAL (C9113 PER 1) IV SCH ×2 (08:32→21:21)
[2020-12-26] MEDS: ENOXAPARIN 40MG/0.4ML SYRINGE (J1650 PER 10MG) SC SCH (08:33)
[2020-12-26] MEDS: MIRALAX *UNIT DOSE* 17GM PACKET PO SCH ×2 (08:33→21:00)
[2020-12-26] MEDS: MECLIZINE 25 MG TABLET PO PRN ×3 (08:35→21:28)
[2020-12-26 14:00] VITALS: BP 140/83
--- NOTE | 2020-12-26 16:25 | IPNPDOC ---
Date Seen The patient was seen on 12/26/20. Progress Note SUBJECTIVE: Still complains of the room spinning at times with increased nausea/vomiting. Ordered vestibular therapy but cannot do until the morning of 12/27/2020. Hoping this helps with the nausea and her keeping food/drink down. Alternating between Phenergan and IV Zofran. Has increased anxiety at times and Ativan IV when necessary is being used. She is eating very little of her clear liquid diet.She denies chest pain, shortness of breath, diarrhea, fevers or chills but has right upper quadrant pain. OBJECTIVE: PHYSICAL EXAMINATION: Constitutional: Uncomfortable vomiting, appears exhausted, sitting up in bed ENT: Sclera are clear. Mucosa is dry Respiratory: Lungs CTA bilaterally. No respiratory distress. No use of accessory muscles. Cardiovascular: RRR S1 and S2 are normal Gastrointestinal: obese, multiple healed incisions on abdomen wall, soft, non - distended, abdominal pain on palpation of right upper quadrant, slightly less tender, BS present. obese abdomen. Musculoskeletal: No lower extremity edema. Neurologic: No focal neurological deficit. Mental Status: A&O x3, normal affect Skin: Warm, dry LABORATORY DATA: See below. IMAGING: EGD 12/24/2020: See report on chart CT abd/pelvis: No acute findings identified. CXR: No acute CP findings CT head: No acute intracranial findings. MICROBIOLOGY: None ASSESSMENT: 30-year-old female history of obesity and recent gastric sleeve surgery presents with nausea and vomiting ongoing since surgery. PLAN: # Gastric/duodenal strictures s/p gastric sleeve, gastritis -One cause of n/v in this patient, occurring since gastric sleeve done in [place] 11/2020. -States she has been compliant with diet as outpatient. -S/p Esophagogastroduodenoscopy (EGD) with dilation (balloon and bougie) of gastric/duodenal strictures 12/24/20 -Has been following up with Dr. Sofia for possible elective cholecystectomy as o/p. Discussed with him and CT does not appear to be concerning for emergency cause to remove gallbladder. -GI (Dr. Osman) recommendations post-op: NPO for 1 day, then advance as tolerated to clear liquid diet for 1 week- but patient has NOT been tolerating this well. After clears she is to advance diet as tolerated after 1- 2 weeks to post gastric surgery diet -- very small meals, frequent meals, soft to pudding consistency foods, Low fat, high protein and high fiber diet. -If by 12/27/20 she appears worse, would touch base with Dr. Osman again to see if he would suggest initiation of artificial means of nutrition. -nutritional reassessment done 12/26/20, see their note -Await pathology results. If Biopsy shows H. pylori will need therapy with antibiotic course. -C/w PPI 40 IV, sucralfate suspension 1 gram PO QID for 4 weeks, phenergan, zofran. NOTE: Patient has been refusing sucralfate #Cyclical vomiting syndrome 2/2 to vertigo with dizziness -Nystagmus on exam, room spinning around her -Started on meclizine but need to hold for vestibular rehab eval. It helps when taken -Vestibular rehab eval to start on 12/27/20 -Meclizine PRN on hold but c/w phenergan and zofran PRN, PPI, IVFs #Hypokalemia likely 2/2 to vomiting, decreased PO intake -K low again today at 3.3, has been improving with fluids with potassium -Patient states cannot tolerate pills, liquid or IV options -C/w 20 mEq KCL/D5 IVFs -Daily labs. #Hypomagnesemia 2/2 to vomiting -F/u mag in AM. #Transaminitis -Increased since procedure -F/u CMP, if does not go down d/w Dr. Osman # Elevated lipase, hx of gallstone pancreatitis -Has remained elevated since prior admission. -CT not showing gallstone pancreatitis, but she has prior admission for this -C/w treatment above -GI has seen # Recent gastric sleeve -Has no PCP but was seen by surgery on last admission, followed up once in community -States to be compliant with clear liquid diet -F/u with surgery as already scheduled after d/c # Class 3 Obesity -Complicates care. BMI 49.9 -F/u with PCP at discharge. #GI px -PPI BID # DVT prophylaxis -Heparin DISPOSITION: Inpatient status. PT ordered for vestibular rehab eval, nutrition consulted to see per GI. Plan is d/c home when medically improved. VS, I&O, 24H, Fishbone Vital Signs/I&O Vital Signs Date Time Temp Pulse Resp B/P (MAP) Pulse Ox O2 Delivery O2 Flow Rate FiO2 12/26/20 14:00 97.4 76 18 140/83 (102) 97 Room Air I&O- Last 24 Hours up to 6 AM 12/26/20 06:00 Intake Total 1620 ml Output Total 2100 ml Balance -480 ml Laboratory Data 24H LABS Laboratory Tests 2 12/25/20 18:31: Bedside Glucose (Misc Panel) 125H 12/26/20 06:01: Nucleated Red Blood Cells % (auto) 0.0, Anion Gap 8, Glomerular Filtration Rate > 60.0, Calcium Level 8.9, Magnesium Level 1.9, Total Bilirubin 1.6H, Aspartate Amino Transf (AST/SGOT) 214H, Alanine Aminotransferase (ALT/SGPT) 451H, Alkaline Phosphatase 106, Total Protein 6.2L, Albumin 3.3, Albumin/Globulin Ratio 1.1L CBC/BMP Laboratory Tests 12/26/20 06:01 Elizabeth Angel MD Dec 26, 2020 16:25
[2020-12-26 20:00] VITALS: BP 157/80
[2020-12-27] MEDS: KCL 20MEQ IN D5/0.45NS 1000ML 1,000 ML IV SCH ×2 (04:00→09:46)
[2020-12-27] MEDS: SUCRALFATE 1 GM TAB PO SCH ×4 (06:00→18:00)
[2020-12-27 06:09] VITALS: BP 152/97
[2020-12-27] MEDS: MIRALAX *UNIT DOSE* 17GM PACKET PO SCH ×2 (09:00→21:00)
[2020-12-27 09:10] LABS: HEMATOCRIT 36.5 % (36.0-47.0); HEMOGLOBIN 12.5 g/dl (12.0-15.5); MEAN CORPUSCULAR HEMOGLOBIN 26.8 pg (27.0-33.0); MEAN CORPUSCULAR HGB CONC 34.2 g/dl (32.0-36.5); MEAN CORPUSCULAR VOLUME 78.2 fl (80.0-96.0); PLATELET COUNT, AUTOMATED 179 10^3/uL (150-450); RED BLOOD COUNT 4.67 10^6/uL (4.00-5.40); WHITE BLOOD COUNT 3.5 10^3/uL (4.0-10.0)
[2020-12-27] MEDS ORDERED: predniSONE 20 MG TAB PO ONE (09:25)
[2020-12-27 09:29] LABS: ALBUMIN 3.3 GM/DL (3.2-5.2); ALT/SGPT 673 U/L (12-78); BILIRUBIN,TOTAL 1.8 MG/DL (0.2-1.0); BLOOD UREA NITROGEN < 1 MG/DL (7-18); CALCIUM LEVEL 9.2 MG/DL (8.5-10.1); CARBON DIOXIDE LEVEL 27 MEQ/L (21-32); CHLORIDE LEVEL 104 MEQ/L (98-107); GLOMERULAR FILTRATION RATE > 60.0 (>60); GLUCOSE, FASTING 124 MG/DL (70-100); MAGNESIUM LEVEL 1.6 MG/DL (1.8-2.4); POTASSIUM SERUM 3.4 MEQ/L (3.5-5.1); SODIUM LEVEL 138 MEQ/L (136-145); TOTAL PROTEIN 6.1 GM/DL (6.4-8.2)
[2020-12-27] MEDS: MECLIZINE 25 MG TABLET PO PRN ×2 (09:37→21:59)
[2020-12-27] MEDS: ENOXAPARIN 40MG/0.4ML SYRINGE (J1650 PER 10MG) SC SCH (09:38)
[2020-12-27] MEDS: PANTOPRAZOLE 40MG VIAL (C9113 PER 1) IV SCH ×2 (09:38→21:59)
[2020-12-27] MEDS: ONDANSETRON 4MG/2ML VIAL IV PRN ×2 (09:46→21:59)
--- NOTE | 2020-12-27 11:57 | IPNPDOC ---
Text Note Date of Service The patient was seen on 12/27/20. NOTE SUBJECTIVE: -Worked with PT this AM, noted to have right beating horizontal nystagmus at rest w/ c/f neuritis, also complained of some tinnitus. Symptoms are persistent. -Currently getting meclizine, and also on alternating between Phenergan and IV Zofran. -She otherwise denies chest pain, shortness of breath, diarrhea, fevers or chills but has right upper quadrant pain. OBJECTIVE: Vitals: see below Constitutional: Uncomfortable vomiting, appears exhausted, sitting up in bed ENT: Sclera are clear. Anicteric Respiratory: Lungs CTA bilaterally. No respiratory distress. No use of accessory muscles. Cardiovascular: RRR S1 and S2 are normal Gastrointestinal: obese, normoactive sounds, multiple healed incisions on abdomen wall, soft, non -distended, abdominal pain on palpation of right upper quadrant. Musculoskeletal: No lower extremity edema. Neurologic:Confirmed R beating nystagmus worse with movement, with otherwise no focal neurological deficit. Mental Status: A&O x3, normal affect Skin: Warm, dry LABORATORY DATA: AST 214 ALT 451 Tbili 1.6 WBC 4.2 Hgb 12.5 platelets 165 pending BMP IMAGING: EGD 12/24/2020: See report on chart CT abd/pelvis: No acute findings identified. CXR: No acute CP findings CT head: No acute intracranial findings. MICROBIOLOGY: None ASSESSMENT: 30-year-old W history of obesity and recent gastric sleeve surgery who presented with nausea and vomiting ongoing since surgery s/p EGD during which she had dilation of gastric and duodenal ulcers c/b persistent symptoms now c/f vestibular etiology c/f neuritis as well as rising transaminitis. PLAN: # N/V/ likely 2/2 gastric/duodenal strictures s/p recent gastric sleeve and gastritis s/p EGD with stricture dilation -gastric sleeve done in [place] 11/2020 S/p Esophagogastroduodenoscopy (EGD) with dilation (balloon and bougie) of gastric/duodenal strictures 12/24/20, will discuss transaminitis with Dr. Osman -Has been following up with Dr. Sofia for possible elective cholecystectomy as o/p. Discussed with him and CT does not appear to be concerning for emergency cause to remove gallbladder. -GI (Dr. Osman) recommendations post-EGD were: to advance as tolerated to clear liquid diet for 1 week- but patient has NOT been tolerating this well w/ vestibular complaints. After clears she is to advance diet as tolerated after 1- 2 weeks to post gastric surgery diet -- very small meals, frequent meals, soft to pudding consistency foods, Low fat, high protein and high fiber diet. -Will trial prednisone 60mg today for potential neuritis, and if reported improvement will tentatively plan for: 10-day course of prednisone; 60 mg daily on days 1 through 5, 40 mg on day 6, 30 mg on day 7, 20 mg on day 8, 10 mg on day 9, and 5 mg on day 10. -nutritional reassessment done 12/26/20, see their note -Await pathology results. If Biopsy shows H. pylori will need therapy with antibiotic course. Likely to f/u on this in GI office -C/w PPI 40 IV, sucralfate suspension 1 gram PO QID for 4 weeks, phenergan, zofran. NOTE: Patient has been refusing sucralfate #Cyclical vomiting syndrome 2/2 to vertigo with dizziness -Will trial prednisone 60mg today for potential neuritis, and if reported improvement will tentatively plan for: 10-day course of prednisone; 60 mg daily on days 1 through 5, 40 mg on day 6, 30 mg on day 7, 20 mg on day 8, 10 mg on day 9, and 5 mg on day 10. -Started on meclizine but need to hold for vestibular rehab eval. -Vestibular rehab ongoing -c/w phenergan and zofran PRN, PPI, IVFs #Hypokalemia likely 2/2 to vomiting, decreased PO intake -check BMP, pending -Patient states cannot tolerate pills, liquid or IV options? -C/w 20 mEq KCL/D5 IVFs -Daily labs. #Hypomagnesemia 2/2 to vomiting -F/u AM mag #Transaminitis -Increased since procedure -F/u CMP,to d/w Dr. Osman # Elevated lipase, hx of gallstone pancreatitis -Has remained elevated since prior admission. -CT not showing gallstone pancreatitis -C/w treatment above -GI has seen -Surgery evaluated her imaging, without need for acute lap jf inpatient # Recent gastric sleeve -Has no PCP but was seen by surgery on last admission, followed up once in community -States to be compliant with clear liquid diet -F/u with surgery as already scheduled after d/c # Class 3 Obesity -Complicates care. BMI 49.9 -F/u with PCP at discharge. #GI px -PPI BID # DVT prophylaxis -Heparin DISPOSITION: Inpatient status. PT ordered for vestibular rehab eval, nutrition consulted to see per GI. Plan is d/c home when medically improved. VS,Fishbone, I+O VS, Fishbone, I+O Vital Signs Date Time Temp Pulse Resp B/P (MAP) Pulse Ox O2 Delivery O2 Flow Rate FiO2 12/27/20 06:09 98.5 93 18 152/97 (115) 98 12/26/20 23:49 Room Air I&O- Last 24 Hours up to 6 AM 12/27/20 06:00 Intake Total 1440 ml Output Total 1700 ml Balance -260 ml TESSA CRUM MD Dec 27, 2020 09:21
[2020-12-27] MEDS ORDERED: methylPREDNISolone 125MG 2ML VIAL IV ONE (12:45)
[2020-12-27 14:00] VITALS: BP 151/91
[2020-12-27 22:00] VITALS: BP 138/93
[2020-12-28] MEDS: KCL 20MEQ IN D5/0.45NS 1000ML 1,000 ML IV SCH ×3 (05:30→20:04)
[2020-12-28 06:00] VITALS: BP 122/76
[2020-12-28] MEDS: SUCRALFATE 1 GM TAB PO SCH ×5 (06:00→22:46)
[2020-12-28 07:13] LABS: ALBUMIN 3.2 GM/DL (3.2-5.2); ALT/SGPT 650 U/L (12-78); BILIRUBIN,TOTAL 1.4 MG/DL (0.2-1.0); BLOOD UREA NITROGEN 1 MG/DL (7-18); CALCIUM LEVEL 9.2 MG/DL (8.5-10.1); CARBON DIOXIDE LEVEL 27 MEQ/L (21-32); CHLORIDE LEVEL 106 MEQ/L (98-107); GLOMERULAR FILTRATION RATE > 60.0 (>60); GLUCOSE, FASTING 115 MG/DL (70-100); LIPASE 360 U/L (73-393); MAGNESIUM LEVEL 1.6 MG/DL (1.8-2.4); POTASSIUM SERUM 3.5 MEQ/L (3.5-5.1); SODIUM LEVEL 138 MEQ/L (136-145); TOTAL PROTEIN 6.4 GM/DL (6.4-8.2)
[2020-12-28 07:20] LABS: HEMATOCRIT 39.1 % (36.0-47.0); HEMOGLOBIN 12.9 g/dl (12.0-15.5); MEAN CORPUSCULAR VOLUME 78.8 fl (80.0-96.0); PLATELET COUNT, AUTOMATED 191 10^3/uL (150-450); RED BLOOD COUNT 4.96 10^6/uL (4.00-5.40); WHITE BLOOD COUNT 5.1 10^3/uL (4.0-10.0)
[2020-12-28] MEDS: MIRALAX *UNIT DOSE* 17GM PACKET PO SCH ×2 (09:00→20:04)
[2020-12-28] MEDS: ENOXAPARIN 40MG/0.4ML SYRINGE (J1650 PER 10MG) SC SCH (09:07)
[2020-12-28] MEDS: methylPREDNISolone 125MG 2ML VIAL IV SCH (09:08)
[2020-12-28] MEDS: PANTOPRAZOLE 40MG VIAL (C9113 PER 1) IV SCH ×2 (09:08→20:04)
[2020-12-28 10:00] VITALS: BP 138/99
[2020-12-28] MEDS: MECLIZINE 25 MG TABLET PO PRN (11:10)
--- NOTE | 2020-12-28 13:19 | IPNPDOC ---
Text Note Date of Service The patient was seen on 12/28/20. NOTE SUBJECTIVE: -Continues to have vertigo, with nausea and poor PO despite 1 dose of methylpred 60, meclizine, and also on alternating between Phenergan and IV Zofran. -She otherwise denies chest pain, shortness of breath, diarrhea, fevers or chills but has right upper quadrant pain. OBJECTIVE: Vitals: see below Constitutional: NAD ENT: Sclera are clear. Anicteric Respiratory: Lungs CTA bilaterally. No respiratory distress. No use of accessory muscles. Cardiovascular: RRR, S1 and S2 are normal Gastrointestinal: obese, normoactive sounds, multiple healed incisions on abdomen wall, soft, non -distended, abdominal pain on palpation of right upper quadrant. Musculoskeletal: No lower extremity edema. Neurologic: Continues to have R beating nystagmus especially with movement, with otherwise no focal neurological deficits on examination of cranial nerves, strength, tone and reflexes. Did not test gait. Mental Status: A&O x3, normal affect Skin: Warm, dry LABORATORY DATA: AST 174 ALT 650 Lipase 360 WBC 5.1 Hgb 12.9 platelets 191 K 3.5 Cr 0.7 na 138 IMAGING: EGD 12/24/2020: See report on chart CT abd/pelvis: No acute findings identified. CXR: No acute CP findings CT head: No acute intracranial findings. MICROBIOLOGY: None ASSESSMENT: 30-year-old W history of obesity and recent gastric sleeve surgery who presented with nausea and vomiting ongoing since surgery s/p EGD during which she had dilation of gastric and duodenal ulcers c/b persistent symptoms now c/f vestibular etiology c/f neuritis as well as rising transaminitis. PLAN: # N/V/ likely 2/2 gastric/duodenal strictures s/p recent gastric sleeve and gastritis s/p EGD with stricture dilation -gastric sleeve done in [place] 11/2020 S/p Esophagogastroduodenoscopy (EGD) with dilation (balloon and bougie) of gastric/duodenal strictures 12/24/20, will discuss transaminitis with Dr. Osman -Has been following up with Dr. Soifa for possible elective cholecystectomy as o/p. Discussed with him and CT does not appear to be concerning for emergency cause to remove gallbladder. -GI (Dr. Osman) recommendations post-EGD were: to advance as tolerated to clear liquid diet for 1 week- but patient has NOT been tolerating this well w/ vestibular complaints. After clears she is to advance diet as tolerated after 1- 2 weeks to post gastric surgery diet -- very small meals, frequent meals, soft to pudding consistency foods, Low fat, high protein and high fiber diet. -Will continue trial of steroids, currently with methylpred 60 IV daily, and as soon as she starts tolerating PO reliably, will switch to a pred taper with 10- day course of prednisone; 60 mg daily on days 1 through 5, 40 mg on day 6, 30 mg on day 7, 20 mg on day 8, 10 mg on day 9, and 5 mg on day 10. -nutritional reassessment done 12/26/20, see their note -Await pathology results. If Biopsy shows H. pylori will need therapy with antibiotic course. Likely to f/u on this in GI office -C/w PPI 40 IV, sucralfate suspension 1 gram PO QID for 4 weeks, phenergan, zofran. NOTE: Patient has been refusing sucralfate #Cyclical vomiting syndrome 2/2 to vertigo with dizziness c/w vestibular neuritis -Will continue trial of steroids, currently with methylpred 60 IV daily, and as soon as she starts tolerating PO reliably, will switch to a pred taper with 10- day course of prednisone; 60 mg daily on days 1 through 5, 40 mg on day 6, 30 mg on day 7, 20 mg on day 8, 10 mg on day 9, and 5 mg on day 10. -meclizine -vestibular rehab -c/w phenergan and zofran PRN, PPI, IVFs #Hypokalemia likely 2/2 to vomiting, decreased PO intake -Patient has not tolerated pills or liquid -C/w 20 mEq KCL/D5 IVFs -Daily labs. #Hypomagnesemia 2/2 to vomiting -daily Mag check #Transaminitis: now downtrending -monitor # Elevated lipase, hx of gallstone pancreatitis, now downtrending -CT not showing gallstone pancreatitis -C/w treatment above -GI has seen -Surgery evaluated her imaging, without need for acute lap jf inpatient # Recent gastric sleeve -Has no PCP but was seen by surgery on last admission, followed up once in community -States to be compliant with clear liquid diet -F/u with surgery as already scheduled after d/c # Class 3 Obesity -Complicates care. BMI 49.9 -F/u with PCP at discharge. #GI px -PPI BID # DVT prophylaxis -Heparin DISPOSITION: Inpatient status. PT ordered for vestibular rehab eval, nutrition consulted to see per GI. Plan is d/c home when medically improved. VS,Fishbone, I+O VS, Fishbone, I+O Laboratory Tests 12/27/20 08:40 12/28/20 06:32 Vital Signs Date Time Temp Pulse Resp B/P (MAP) Pulse Ox O2 Delivery O2 Flow Rate FiO2 12/28/20 06:00 97.1 67 18 122/76 (91) 96 Room Air I&O- Last 24 Hours up to 6 AM 12/28/20 06:00 Intake Total 2520 ml Output Total 675 ml Balance 1845 ml TESSA CRUM MD Dec 28, 2020 08:08
[2020-12-28 14:53] VITALS: BP 114/71
[2020-12-28 22:00] VITALS: BP 145/95
[2020-12-29] MEDS: SUCRALFATE 1 GM TAB PO SCH ×4 (04:11→23:58)
[2020-12-29 06:00] VITALS: BP 150/90
[2020-12-29 06:39] LABS: HEMATOCRIT 38.5 % (36.0-47.0); HEMOGLOBIN 12.7 g/dl (12.0-15.5); MEAN CORPUSCULAR HEMOGLOBIN 26.2 pg (27.0-33.0); MEAN CORPUSCULAR VOLUME 79.4 fl (80.0-96.0); PLATELET COUNT, AUTOMATED 186 10^3/uL (150-450); RED BLOOD COUNT 4.85 10^6/uL (4.00-5.40); WHITE BLOOD COUNT 5.8 10^3/uL (4.0-10.0)
[2020-12-29 07:14] LABS: ALBUMIN 3.1 GM/DL (3.2-5.2); ALT/SGPT 661 U/L (12-78); BILIRUBIN,TOTAL 1.3 MG/DL (0.2-1.0); BLOOD UREA NITROGEN 2 MG/DL (7-18); CARBON DIOXIDE LEVEL 28 MEQ/L (21-32); CHLORIDE LEVEL 107 MEQ/L (98-107); GLOMERULAR FILTRATION RATE > 60.0 (>60); GLUCOSE, FASTING 106 MG/DL (70-100); MAGNESIUM LEVEL 1.6 MG/DL (1.8-2.4); POTASSIUM SERUM 3.7 MEQ/L (3.5-5.1); SODIUM LEVEL 141 MEQ/L (136-145)
[2020-12-29] MEDS: KCL 20MEQ IN D5/0.45NS 1000ML 1,000 ML IV SCH ×2 (09:49→16:00)
[2020-12-29] MEDS: PANTOPRAZOLE 40MG VIAL (C9113 PER 1) IV SCH (09:50)
[2020-12-29] MEDS: MECLIZINE 25 MG TABLET PO PRN (09:50)
[2020-12-29] MEDS: MIRALAX *UNIT DOSE* 17GM PACKET PO SCH ×2 (09:50→20:53)
[2020-12-29] MEDS: methylPREDNISolone 125MG 2ML VIAL IV SCH (09:51)
[2020-12-29] MEDS: ENOXAPARIN 40MG/0.4ML SYRINGE (J1650 PER 10MG) SC SCH (09:51)
[2020-12-29] MEDS: ONDANSETRON 4MG/2ML VIAL IV PRN (09:52)
[2020-12-29 14:00] VITALS: BP 142/95
--- NOTE | 2020-12-29 14:49 | IPNPDOC ---
Text Note Date of Service The patient was seen on 12/29/20. NOTE ENTERED IN ERROR. PATIENT CARE BEING TRANSFERRED TO DR. HAQ. VS,Madi, I+O VSMadi I+O Laboratory Tests 12/29/20 06:24 Vital Signs Date Time Temp Pulse Resp B/P (MAP) Pulse Ox O2 Delivery O2 Flow Rate FiO2 12/29/20 06:00 97.7 80 18 150/90 (110) 95 Room Air I&O- Last 24 Hours up to 6 AM0 12/29/20 06:00 Intake Total 1320 ml Output Total 2000 ml Balance -680 ml TESSA CRUM MD Dec 29, 2020 10:35
--- NOTE | 2020-12-29 16:19 | IPNPDOC ---
Text Note Date of Service The patient was seen on 12/29/20. NOTE Subjective: Patient complains of double vision on her left eye and continues dizziness associated with tinnitus. Patient stated that the room is spinning around. Patient stated that when she walks she has a tendency to fall on the left side. Objective: GENERAL APPEARANCE: Morbidly obese female HEENT: no scleral icterus, no JVD, EOMI CARDIOVASCULAR: S1S2 LUNGS: Diminished lung sounds bilaterally ABDOMEN: soft & not tender w palpation MUSCULOSKELETAL: no cyanosis, no swelling INTEGUMENT: no generalized pallor NEUROLOGICAL: cranial nerve function from 2-12 intact, follows commands, speech not dysarthric, patient reported double vision on her left eye on lateral peripheral field Assessment and plan Patient is 30 years old female with past medical history of morbid obesity, gastric sleeve surgery presented to hospital with abdominal pain, dizziness. N/V/ likely 2/2 gastric/duodenal strictures s/p recent gastric sleeve and gastritis s/p EGD with stricture dilation -gastric sleeve done in [place] 11/2020 S/p Esophagogastroduodenoscopy (EGD) with dilation (balloon and bougie) of gastric/duodenal strictures 12/24/20 Patient developed transaminitis unknown etiology. I will check hepatitis panel CT negative for acute pathology Zofran IV, meclizine Dizziness/double vision/vertigo/nausea/vomiting/tinnitus Unknown etiology. Differential diagnosis includes benign positional vertigo, stroke, vestibular neuritis, Mnire's disease Patient received course of steroids with meclizine without positive dynamic There is concern for cerebellar stroke MRI MRA Continue PT/OT Electrolytes imbalance/hypokalemia, hypomagnesemia Replaced Elevated lipase level CT negative for acute pancreatitis Continue to monitor Patient stated that abdominal pain resolved Gastric sleeve surgery Follow-up with bariatric surgeon in the outpatient settings. Patient will benefit with close follow-up with bariatric surgeon who can help her with managing of her diet and postoperative follow-up. Continue PPI Morbid obesity BMI 49.9 Complicated care Follow-up recommendation from printing sales representative DVT prophylaxis with heparin 5000 twice daily VS,Fishbone, I+O VS, Fishbone, I+O Laboratory Tests 12/29/20 06:24 Vital Signs Date Time Temp Pulse Resp B/P (MAP) Pulse Ox O2 Delivery O2 Flow Rate FiO2 12/29/20 14:00 97.4 89 19 142/95 (111) 96 Room Air I&O- Last 24 Hours up to 6 AM 12/29/20 06:00 Intake Total 1320 ml Output Total 2000 ml Balance -680 ml LETY HAQ DO Dec 29, 2020 16:19
[2020-12-29] MEDS ORDERED: MAGNESIUM OXIDE 400MG TAB (MAG-OX) PO ONE (16:30)
--- NOTE | 2020-12-29 19:21 | REPVR ---
PROCEDURE INFORMATION: Exam: MR Head Without Contrast Exam date and time: 12/29/2020 6:40 PM Age: 30 years old Clinical indication: Other: CVA TECHNIQUE: Imaging protocol: MR of the head without contrast. COMPARISON: CT Head without contrast 12/22/2020 5:23 PM FINDINGS: Ventricles demonstrate normal size and configuration. Major vascular flow voids at the skull base are preserved. No extra-axial fluid collection. No midline shift or intracranial mass effect. No pathologic white-matter signal or cerebral edema. No pathologic susceptibility. No diffusion restriction. Visualized paranasal sinuses and mastoid air cells are clear. IMPRESSION: No acute intracranial abnormality. Electronically signed by: Molina Dean On 12/29/2020 19:20:53 PM
--- NOTE | 2020-12-29 19:21 | REPVR ---
PROCEDURE INFORMATION: Exam: MRA Head Without Contrast; Arteriography Exam date and time: 12/29/2020 6:40 PM Age: 30 years old Clinical indication: Condition or disease; Other: CVA TECHNIQUE: Imaging protocol: Magnetic resonance angiography head without contrast. Exam focused on the arteries. COMPARISON: CT Head without contrast 12/22/2020 5:23 PM FINDINGS: ANTERIOR CIRCULATION: Right internal carotid artery: Intracranial segment is patent with no significant stenosis. No aneurysm. Right middle cerebral artery: No occlusion or significant stenosis. No aneurysm. Right anterior cerebral artery: No occlusion or significant stenosis. No aneurysm. Left internal carotid artery: Intracranial segment is patent with no significant stenosis. No aneurysm. Left middle cerebral artery: No occlusion or significant stenosis. No aneurysm. Left anterior cerebral artery: No occlusion or significant stenosis. No aneurysm. POSTERIOR CIRCULATION: Right vertebral artery: No occlusion or significant stenosis. No aneurysm. Left vertebral artery: No occlusion or significant stenosis. No aneurysm. Basilar artery: No occlusion or significant stenosis. No aneurysm. Right posterior cerebral artery: No occlusion or significant stenosis. No aneurysm. Left posterior cerebral artery: No occlusion or significant stenosis. No aneurysm. IMPRESSION: No stenosis or occlusion. Electronically signed by: Molina Dean On 12/29/2020 19:20:46 PM
[2020-12-29 20:37] VITALS: BP 140/72
[2020-12-29] MEDS ORDERED: PANTOPRAZOLE 40MG TAB (PROTONIX) PO SCH (21:00)
[2020-12-30] MEDS: SUCRALFATE 1 GM TAB PO SCH (05:34)
[2020-12-30 05:39] VITALS: BP 140/80
[2020-12-30 06:25] LABS: HEMATOCRIT 40.3 % (36.0-47.0); HEMOGLOBIN 13.4 g/dl (12.0-15.5); MEAN CORPUSCULAR HEMOGLOBIN 26.3 pg (27.0-33.0); MEAN CORPUSCULAR HGB CONC 33.3 g/dl (32.0-36.5); MEAN CORPUSCULAR VOLUME 79.2 fl (80.0-96.0); PLATELET COUNT, AUTOMATED 196 10^3/uL (150-450); RED BLOOD COUNT 5.09 10^6/uL (4.00-5.40); WHITE BLOOD COUNT 6.7 10^3/uL (4.0-10.0)
[2020-12-30 08:58] LABS: ALBUMIN 3.5 GM/DL (3.2-5.2); ALT/SGPT 633 U/L (12-78); BILIRUBIN,TOTAL 1.5 MG/DL (0.2-1.0); BLOOD UREA NITROGEN 7 MG/DL (7-18); CALCIUM LEVEL 9.5 MG/DL (8.5-10.1); CARBON DIOXIDE LEVEL 27 MEQ/L (21-32); CHLORIDE LEVEL 102 MEQ/L (98-107); CREATININE FOR GFR 0.87 MG/DL (0.55-1.30); GLOMERULAR FILTRATION RATE > 60.0 (>60); GLUCOSE, FASTING 89 MG/DL (70-100); MAGNESIUM LEVEL 1.8 MG/DL (1.8-2.4); POTASSIUM SERUM 3.4 MEQ/L (3.5-5.1); SODIUM LEVEL 140 MEQ/L (136-145); TOTAL PROTEIN 6.6 GM/DL (6.4-8.2)
[2020-12-30] MEDS ORDERED: MAGNESIUM OXIDE 400MG TAB (MAG-OX) PO SCH (09:00)
[2020-12-30 09:28] LABS: HEPATITIS B SURFACE ANTIGEN NEGATIVE (NEGATIVE)
[2020-12-30 09:55] LABS: HEPATITIS C VIRUS ABY INDEX 0.1 INDEX (<0.8)
[2020-12-30 09:56] LABS: HEPATITIS B CORE ANTIBODY IGM NEGATIVE (NEGATIVE)
[2020-12-30] MEDS ORDERED: POTASSIUM CHLORIDE 10MEQ SR TABLET PO ONE (10:30)
[2020-12-30] MEDS ORDERED: PANT40TA29 PO (11:29)
[2020-12-30] MEDS ORDERED: CVSTAB PO (11:29)
[2020-12-30] MEDS ORDERED: MECL-86 PO (11:29)
[2020-12-30] MEDS ORDERED: SUCR1ORA PO (11:32)
--- NOTE | 2020-12-30 19:01 | DS.PDOC ---
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 HISTORY OF PRESENT ILLNESS: 30-year-old female history of obesity and recent gastric sleeve surgery early November in [place] presents with ongoing nausea and vomiting and a poor appetite and oral intake since her surgery. There is also constant abdominal discomfort since her surgery that goes away when she sleeps and comes back when she's awake. She says she's been having difficulty getting follow up appointments outpatient because theyre too far out. She has associated dizziness when she thinks is form not being able to eat. Does not have a PCP. HOSPITAL COURSE: During the hospital stay the following issue addressed N/V/ likely 2/2 gastric/duodenal strictures s/p recent gastric sleeve and gastritis s/p EGD with stricture dilation -gastric sleeve done in [place] 11/2020 . During the hospital stay GI team did Esophagogastroduodenoscopy (EGD) with dilation (balloon and bougie) of gastric/duodenal strictures 12/24/20 Also patient developed transaminitis unknown etiology. hepatitis panel negative CT negative for acute pathology Patient received Zofran IV, meclizine Dizziness/double vision/vertigo/nausea/vomiting/tinnitus Unknown etiology. Differential diagnosis includes benign positional vertigo, stroke, vestibular neuritis, Mnire's disease Patient received course of steroids with meclizine without positive dynamic There is concern for cerebellar stroke MRI MRA unremarkable Continue PT/OT Follow-up with vestibular rehab in the outpatient settings Electrolytes imbalance/hypokalemia, hypomagnesemia Replaced Elevated lipase level CT negative for acute pancreatitis Continue to monitor Patient stated that abdominal pain resolved. Lipase trended down Gastric sleeve surgery Follow-up with bariatric surgeon in the outpatient settings. Patient will benefit with close follow-up with bariatric surgeon who can help her with managing of her diet and postoperative follow-up. Continue PPI Morbid obesity BMI 49.9 Complicated care Follow-up recommendation from human resources hr generalist DISCHARGE MEDICATIONS: Please see below. ALLERGIES: Please see below. PHYSICAL EXAMINATION ON DISCHARGE: VITAL SIGNS: Please see below. GENERAL APPEARANCE: Morbidly obese female HEENT: no scleral icterus, no JVD, EOMI CARDIOVASCULAR: S1S2 LUNGS: Diminished lung sounds bilaterally ABDOMEN: soft & not tender w palpation MUSCULOSKELETAL: no cyanosis, no swelling INTEGUMENT: no generalized pallor NEUROLOGICAL: cranial nerve function from 2-12 intact, follows commands, speech not dysarthric, patient reported double vision on her left eye on lateral peripheral field LABORATORY DATA: Please see below. PROGNOSIS: Fair ACTIVITY: [As tolerated]. DIET: Advance diet as tolerated after 1- 2 weeks to post gastric surgery diet it was done on 12/24/20-- very small meals, frequent meals, soft to pudding consistency foods, Low fat, high protein and high fiber diet Use Protonix (pantoprazole) 40 mg PO twice daily - to be taken in morning (1/2 hour before breakfast) and at bedtime ( atleast 3 hours after last meal) for 8 weeks. - Use sucralfate suspension 1 gram PO QID for 4 weeks. DISPOSITION: 01 Home, Self-Care. ITEMS TO FOLLOWUP ON ON OUTPATIENT: Follow-up with GI team, bariatric surgeon, PCP, neurologist DISCHARGE CONDITION: [Stable]. TIME SPENT ON DISCHARGE: 50 minutes. Vital Signs/I&Os Vital Signs Date Time Temp Pulse Resp B/P (MAP) Pulse Ox O2 Delivery O2 Flow Rate FiO2 12/30/20 05:39 99.2 91 16 140/80 (100) 95 Room Air I&O- Last 24 Hours up to 6 AM 12/30/20 06:00 Intake Total 540 ml Output Total 0 ml Balance 540 ml Laboratory Data Labs 24H Laboratory Tests 2 12/30/20 06:01: Nucleated Red Blood Cells % (auto) 0.0, Anion Gap 11, Glomerular Filtration Rate > 60.0, Calcium Level 9.5, Magnesium Level 1.8, Total Bilirubin 1.5H, Aspartate Amino Transf (AST/SGOT) 154H, Alanine Aminotransferase (ALT/SGPT) 633H, Al kaline Phosphatase 110, Total Protein 6.6, Albumin 3.5, Albumin/Globulin Ratio 1.1L, Hepatitis A IgM Antibody NEGATIVE, Hepatitis B Surface Antigen NEGATIVE, Hepatitis B Core IgM Antibody NEGATIVE, Hepatitis C Antibody Index 0.1 12/30/20 11:08: Vitamin B12 Level 609 CBC/BMP Laboratory Tests 12/30/20 06:01 Discharge Medications Scheduled Multivit,Calc,Mins/Iron/Folic ([facility] Daily Multiple Tablet) 1 Each Tablet, 1 TAB PO DAILY Pantoprazole Sodium (Pantoprazole Sodium) 40 Mg Tablet.dr, 40 MG PO BID Sucralfate (Sucralfate) 1 Gm/10 Ml Oral.susp, 10 ML PO QID Scheduled PRN Meclizine HCl (Meclizine HCl) 25 Mg Tablet, 25 MG PO Q4HP PRN for DIZZINESS Ondansetron HCl (Ondansetron HCl) 4 Mg Tablet, 4 MG PO TID PRN for NAUSEA OR V OMITING, (Reported) Allergies Coded Allergies: Penicillins (Verified Allergy, Unknown, hives, throat closes up, 08/28/20) amoxicillin (Verified Allergy, Unknown, urticaria, respiratory depression, 02/22/19) LETY HAQ DO Dec 30, 2020 19:01
== END 2020-12-30 14:15 | disposition home or self-care (01) | DRG 394 ==
LOC: M ED 15:39 → M ED INP 15:40 → M MS5PR 22:51 → OBSVTOIN 12-24 16:31
PROVIDERS: ADMIT Family Medicine; ATTEND Internal Medicine
PROC: 0DB78ZX Excision of Stomach, Pylorus, Via Natural or Artificial Opening Endoscopic, Diagnostic (ICD-10-PCS; 2020-12-24)
PROC: 0D798DZ Dilation of Duodenum with Intraluminal Device, Via Natural or Artificial Opening Endoscopic (ICD-10-PCS; principal; 2020-12-24 08:00)
DX: K95.89 Other complications of other bariatric procedure (principal); Z68.42 Body mass index [BMI] 45.0-49.9, adult; K56.609 Unspecified intestinal obstruction, unspecified as to partial versus complete obstruction; R11.15 Cyclical vomiting syndrome unrelated to migraine; E66.01 Morbid (severe) obesity due to excess calories; E87.6 Hypokalemia; K29.70 Gastritis, unspecified, without bleeding; E83.42 Hypomagnesemia; Z79.899 Other long term (current) drug therapy; Z88.0 Allergy status to penicillin; Z20.822 Contact with and (suspected) exposure to COVID-19; Z90.49 Acquired absence of other specified parts of digestive tract; H81.10 Benign paroxysmal vertigo, unspecified ear

== ENCOUNTER → 2021-02-07 | Outpatient (REF) | payer OTHER ==
[~2021-02-07] MED LIST changes: +CVSTAB PO; +MECL-86 PO; +ONDA-83 PO; +PANT40TA29 PO; +SUCR1ORA PO
[2021-02-07 12:50] LABS: HEMATOCRIT 44.2 % (36.0-47.0); HEMOGLOBIN 14.6 g/dl (12.0-15.5); MEAN CORPUSCULAR HEMOGLOBIN 27.9 pg (27.0-33.0); MEAN CORPUSCULAR VOLUME 84.4 fl (80.0-96.0); PLATELET COUNT, AUTOMATED 215 10^3/uL (150-450); RED BLOOD COUNT 5.24 10^6/uL (4.00-5.40); WHITE BLOOD COUNT 7.6 10^3/uL (4.0-10.0)
[2021-02-07 13:29] LABS: ALBUMIN 3.3 GM/DL (3.2-5.2); ALT/SGPT 39 U/L (12-78); BILIRUBIN,TOTAL 0.6 MG/DL (0.2-1.0); BLOOD UREA NITROGEN 2 MG/DL (7-18); CALCIUM LEVEL 9.2 MG/DL (8.5-10.1); CARBON DIOXIDE LEVEL 27 MEQ/L (21-32); CHLORIDE LEVEL 102 MEQ/L (98-107); CREATININE FOR GFR 0.62 MG/DL (0.55-1.30); FERRITIN 66 NG/ML (8-252); FOLATE 16.3 NG/ML; GLOMERULAR FILTRATION RATE > 60.0 (>60); GLUCOSE, FASTING 76 MG/DL (70-100); IRON (FE) 50 UG/DL (50-170); MAGNESIUM LEVEL 1.8 MG/DL (1.8-2.4); PERCENT SATURATION 18.8 % (13.2-45.0); POTASSIUM SERUM 3.7 MEQ/L (3.5-5.1); SODIUM LEVEL 141 MEQ/L (136-145); TOTAL IRON BINDING CAPACITY 266 UG/DL (250-450); VITAMIN B12 LEVEL > 2000 PG/ML
== END ==
LOC: M SFHCADAM 09:42
PROVIDERS: ATTEND Physician Assistant
DX: R74.8 Abnormal levels of other serum enzymes (principal); R42 Dizziness and giddiness; E51.9 Thiamine deficiency, unspecified; E87.6 Hypokalemia; Z90.3 Acquired absence of stomach [part of]

== ENCOUNTER 2021-02-22 08:02 | Emergency (ER) | payer OTHER ==
[~2021-02-22] VITALS: Ht 152.4 cm; Wt 104.5 kg
[2021-02-22 09:34] LABS: BASO % 0.6 % (0.0-1.0); EOS % 0.4 % (0.0-3.0); HEMATOCRIT 37.5 % (36.0-47.0); HEMOGLOBIN 12.4 g/dl (12.0-15.5); LYMPH # 1.1 10^3/uL (1.5-5.0); MEAN CORPUSCULAR HEMOGLOBIN 28.5 pg (27.0-33.0); MEAN CORPUSCULAR HGB CONC 33.1 g/dl (32.0-36.5); MEAN CORPUSCULAR VOLUME 86.2 fl (80.0-96.0); MONO # 0.5 10^3/uL (0.0-0.8); MONO % 8.9 % (2.0-8.0); NEUTROPHILS # 3.4 10^3/uL (1.5-8.5); NEUTROPHILS % 67.9 % (36.0-66.0); PLATELET COUNT, AUTOMATED 210 10^3/uL (150-450); RED BLOOD COUNT 4.35 10^6/uL (4.00-5.40); WHITE BLOOD COUNT 5.1 10^3/uL (4.0-10.0)
[2021-02-22 09:46] LABS: INR 1.01; PROTHROMBIN TIME 13.7 SECONDS (12.7-14.5)
[2021-02-22 10:02] LABS: BLOOD UREA NITROGEN 5 MG/DL (7-18); CALCIUM LEVEL 9.1 MG/DL (8.5-10.1); CARBON DIOXIDE LEVEL 25 MEQ/L (21-32); CHLORIDE LEVEL 111 MEQ/L (98-107); CREATININE FOR GFR 0.41 MG/DL (0.55-1.30); GLOMERULAR FILTRATION RATE > 60.0 (>60); GLUCOSE, FASTING 89 MG/DL (70-100); POTASSIUM SERUM 3.7 MEQ/L (3.5-5.1); SODIUM LEVEL 144 MEQ/L (136-145)
[2021-02-22 10:03] LABS: ALBUMIN 2.8 GM/DL (3.2-5.2); ALT/SGPT 307 U/L (12-78); BILIRUBIN,DIRECT 1.4 MG/DL (0.0-0.2); BILIRUBIN,TOTAL 1.8 MG/DL (0.2-1.0); LIPASE 234 U/L (73-393); TOTAL PROTEIN 6.3 GM/DL (6.4-8.2)
[2021-02-22] MEDS ORDERED: ONDANSETRON 4MG/2ML VIAL IV ONE (12:40)
[2021-02-22] MEDS ORDERED: NS 1,000 ML IV ONE (12:40)
[2021-02-22] MEDS ORDERED: MORPHINE 4 MG/ML 1ML VIAL/SYRINGE (J2270) IV ONE (12:40)
[2021-02-22 13:09] LABS: HCG, SERUM QUALITATIVE NEGATIVE (NEGATIVE)
[2021-02-22] MEDS ORDERED: ISOVUE-370 76% 100ML VIAL As Ordered ONE (13:37)
[2021-02-22 13:40] LABS: CK-MB VALUE MASS < 1.0 NG/ML (<3.6); CPK CREATINE PHOSPHOKINASE 53 U/L (26-192); MB/CK RELATIVE INDEX 1.89 (< OR =4)
[2021-02-22 14:53] LABS: HEPATITIS B SURFACE ANTIGEN NEGATIVE (NEGATIVE)
[2021-02-22 15:01] LABS: MONO REFLEX EBV COMP NEGATIVE (NEGATIVE)
[2021-02-22] MEDS ORDERED: MECLIZINE 25 MG TABLET PO ONE (15:05)
[2021-02-22 15:22] LABS: HEPATITIS B CORE ANTIBODY IGM NEGATIVE (NEGATIVE); HEPATITIS C VIRUS ABY INDEX 0.1 INDEX (<0.8)
[2021-02-22 16:19] VITALS: BP 105/60
== END 2021-02-22 16:27 | disposition home or self-care (01) ==
LOC: M ED 08:02 → EDBD 08:02 → M ED 16:27
DX: K80.20 Calculus of gallbladder without cholecystitis without obstruction (principal); R74.01 Elevation of levels of liver transaminase levels; K21.9 Gastro-esophageal reflux disease without esophagitis; Z88.0 Allergy status to penicillin
CPT/HCPCS: 71045; 71275; 74177; 76705; 80048; 80076; 82550; 82553; 83690; 84484; 84703; 85025; 85379; 85610; 86308; 86664; 86665; 86705; 86709; 86803; 87340; 93005; 94760; 96361; 96374; 96375; 99284; J2270; J2405; Q9967

== ENCOUNTER → 2021-05-23 | Outpatient (REF) | payer OTHER ==
[2021-05-23 13:40] LABS: ALBUMIN 3.7 GM/DL (3.2-5.2); ALT/SGPT 26 U/L (12-78); BILIRUBIN,TOTAL 0.5 MG/DL (0.2-1.0); BLOOD UREA NITROGEN 7 MG/DL (7-18); CALCIUM LEVEL 9.5 MG/DL (8.5-10.1); CARBON DIOXIDE LEVEL 28 MEQ/L (21-32); CHLORIDE LEVEL 111 MEQ/L (98-107); CREATININE FOR GFR 0.55 MG/DL (0.55-1.30); GLOMERULAR FILTRATION RATE > 60.0 (>60); GLUCOSE, FASTING 78 MG/DL (70-100); POTASSIUM SERUM 3.9 MEQ/L (3.5-5.1); SODIUM LEVEL 144 MEQ/L (136-145); TOTAL PROTEIN 6.8 GM/DL (6.4-8.2)
== END ==
LOC: M SFHCADAM 09:50
PROVIDERS: ATTEND Physician Assistant
DX: E51.2 Wernicke's encephalopathy (principal); R42 Dizziness and giddiness; K80.20 Calculus of gallbladder without cholecystitis without obstruction; R74.8 Abnormal levels of other serum enzymes; Z90.3 Acquired absence of stomach [part of]

== ENCOUNTER → 2021-08-09 | Outpatient (CLI) | payer OTHER | LOC: M LABSMTC 09:32 | PROVIDERS: ATTEND Anesthesiology | DX: Z01.818 Encounter for other preprocedural examination (principal); Z11.52 Encounter for screening for COVID-19 ==

== ENCOUNTER 2021-08-14 11:00 | Day surgery (SDC) | payer OTHER ==
[~2021-08-14] VITALS: Ht 152.4 cm; Wt 88.0 kg
[2021-08-14] MEDS ORDERED: LR 1,000 ML IV SCH ×2 (12:00→14:30)
[2021-08-14] MEDS ORDERED: propofoL 200 MG/20 ML VIAL As Ordered ONE (12:24)
[2021-08-14] MEDS ORDERED: ROCURONIUM BROMIDE 50 MG/5 ML VIAL As Ordered ONE (12:25)
[2021-08-14] MEDS ORDERED: MIDAZOLAM INJ 2MG/2ML VIAL (J2250 PER 1MG) As Ordered ONE (12:27)
[2021-08-14] MEDS ORDERED: fentaNYL 250 MCG/5 ML INJECTION As Ordered ONE (12:27)
[2021-08-14] MEDS ORDERED: LIDOCAINE 2% INJ 100 MG/5 ML SYRINGE As Ordered ONE (12:37)
[2021-08-14] MEDS ORDERED: dexameTHASONE 4 MG/ML 1ML VIAL (J1100 PER 1MG) As Ordered ONE (12:37)
[2021-08-14] MEDS ORDERED: ONDANSETRON 4MG/2ML VIAL As Ordered ONE (12:37)
[2021-08-14] MEDS ORDERED: BUPIVACAINE/EPIN 0.25% 30 ML VIAL As Ordered ONE (13:09)
[2021-08-14] MEDS ORDERED: SUGAMMADEX SODIUM 500 MG/5 ML VIAL (BRIDION) As Ordered ONE (14:15)
[2021-08-14] MEDS ORDERED: oxyCODONE 5MG TAB PO PRN (14:30)
[2021-08-14] MEDS ORDERED: METOCLOPRAMIDE INJ 10MG/2ML VIAL (J2765 PER 1) IV PRN (14:30)
[2021-08-14] MEDS ORDERED: ONDANSETRON 4MG/2ML VIAL IV PRN (14:30)
[2021-08-14] MEDS ORDERED: HYDROMORPHONE HCL 0.5 MG/ 0.5 ML SYRINGE (J1170 PER 1) IV PRN (14:30)
[2021-08-14] MEDS: fentaNYL 100 MCG/2 ML INJECTION IV PRN ×2 (14:48→15:07)
[2021-08-14] MEDS ORDERED: NORCO, ANEXSIA 5/325MG TABLET (HYDROcodone/ACETAMINOPHEN) PO PRN (14:50)
[2021-08-14 15:25] VITALS: BP 124/84
== END 2021-08-14 17:00 | disposition home or self-care (01) ==
LOC: M SDC 11:00
PROVIDERS: ATTEND Surgery
DX: K80.10 Calculus of gallbladder with chronic cholecystitis without obstruction (principal); R79.89 Other specified abnormal findings of blood chemistry; E51.9 Thiamine deficiency, unspecified; Z98.84 Bariatric surgery status; Z88.0 Allergy status to penicillin
CPT/HCPCS: 47562; 81025; 88304; J1100; J2250; J2405; J3010; S2900

== ENCOUNTER → 2022-01-15 | Outpatient (REF) | payer OTHER ==
[~2022-01-15] MED LIST changes: +LEVO1TAB40 PO; -LEVO750T13 PO
[2022-01-15 17:37] LABS: HEMATOCRIT 34.9 % (36.0-47.0); HEMOGLOBIN 11.7 g/dl (12.0-15.5); MEAN CORPUSCULAR HEMOGLOBIN 29.3 pg (27.0-33.0); MEAN CORPUSCULAR HGB CONC 33.5 g/dl (32.0-36.5); MEAN CORPUSCULAR VOLUME 87.3 fl (80.0-96.0); PLATELET COUNT, AUTOMATED 287 10^3/uL (150-450); WHITE BLOOD COUNT 6.7 10^3/uL (4.0-10.0)
[2022-01-15 18:26] LABS: CHLORIDE LEVEL 106 MMOL/L (98-107); POTASSIUM SERUM 3.7 MMOL/L (3.5-5.1); SODIUM LEVEL 143 MMOL/L (136-145)
[2022-01-15 18:27] LABS: ALBUMIN 3.7 G/DL (3.2-5.2); CARBON DIOXIDE LEVEL 27 MMOL/L (20-31)
[2022-01-15 18:30] LABS: FERRITIN 5.7 NG/ML (7.3-270.7)
[2022-01-15 18:31] LABS: TOTAL PROTEIN 6.1 G/DL (5.7-8.2)
[2022-01-15 18:32] LABS: CALCIUM LEVEL 8.6 MG/DL (8.5-10.1); GLUCOSE, FASTING 89 MG/DL (60-100); TOTAL 25(OH) VITAMIN D 12.9 NG/ML (20.0-100.0)
[2022-01-15 18:34] LABS: ALT/SGPT 13 U/L (7.0-40); BILIRUBIN,TOTAL 0.3 MG/DL (0.3-1.2); CREATININE FOR GFR 0.59 MG/DL (0.55-1.30); GLOMERULAR FILTRATION RATE > 60.0 (>60); IRON (FE) 14 UG/DL (50-170); VITAMIN B12 LEVEL 398 PG/ML (211-911)
[2022-01-15 18:35] LABS: PERCENT SATURATION 3.8 % (13.2-45.0); TOTAL IRON BINDING CAPACITY 371 UG/DL (250-425)
[2022-01-15 18:36] LABS: BLOOD UREA NITROGEN < 5 MG/DL (9-23)
== END ==
LOC: M SFHCADAM 13:05
PROVIDERS: ATTEND Physician Assistant
DX: Z90.3 Acquired absence of stomach [part of] (principal); E51.9 Thiamine deficiency, unspecified; R74.8 Abnormal levels of other serum enzymes